=== PATIENT | female | born 1930 | race African-American/Black ===

== ENCOUNTER 2018-03-16 11:53 | Observation (INO) | payer OTHER ==
[2018-03-16 12:21] VITALS: BMI 30.2
--- NOTE | 2018-03-16 12:27 | PDOC ---
History of Present Illness - General Chief Complaint: Injury Stated Complaint: FALL Time Seen by Provider: 03/16/18 12:08 History Source: Patient Exam Limitations: Dementia - History of Present Illness Initial Comments: 03/16/18 15:51 Patient is an 87-year-old female with past medical history of hypertension, A. fib, on Xarelto and digoxin, COPD, dementia, who [facility] records, patient has had 2 falls in the last 48 hours. The second fall was witnessed and she did not hit her head. They are concerned that she keeps falling and send her in for evaluation. Patient has dementia and is unable to give a review of systems. According to the [facility] patient was at baseline prior to arrival. Past History - Travel Traveled outside of the country in the last 30 days: No Close contact w/someone who was outside of country & ill: No - Past Medical History Allergies/Adverse Reactions: Allergies Allergy/AdvReac Type Severity Reaction Status Date / Time morphine Allergy Verified 03/16/18 12:45 Penicillins Allergy Verified 03/16/18 12:45 shellfish derived Allergy Verified 03/16/18 12:45 Home Medications: Ambulatory Orders Albuterol 0.083% Nebulizer Ani [Ventolin 0.083% Nebulizer Soln -] 1 amp NEB PRN 03/16/18 Budesonide/Formeterol Fumarate [SYMBICORT 80/4.5mcg -] 2 puff IH BID 03/16/18 Lisinopril 10 mg PO DAILY 03/16/18 Propylene Glycol [Systane Balance] 2 drop OD HS 03/16/18 Rivaroxaban [Xarelto -] 15 mg PO DAILY 03/16/18 Sertraline HCl [Zoloft -] 50 mg PO DAILY 03/16/18 Simvastatin [Zocor -] 20 mg PO HS 03/16/18 Zinc Gluconate [Zinc] 50 mg PO DAILY 03/16/18 Carvedilol [Coreg -] 12.5 mg PO BID 03/18/18 Digoxin 125 mcg PO DAILY 03/18/18 Sertraline HCl [Zoloft] 25 mg PO DAILY 03/18/18 - Suicide/Smoking/Psychosocial Hx Smoking History: Unknown if ever smoked Hx Alcohol Use: No Drug/Substance Use Hx: No Review of Systems - Review of Systems Able to Perform ROS?: No (Demented) Is the patient limited Latvian proficient: No *Physical Exam - Vital Signs Last Vital Signs Temp Pulse Resp BP Pulse Ox 97.4 F L 58 L 17 122/70 98 03/16/18 12:12 03/16/18 12:12 03/16/18 12:12 03/16/18 12:12 03/16/18 12:12 - Physical Exam Comments: 03/16/18 12:21 GENERAL: Well developed, well nourished. Awake and alert x2 (person and place). No acute distress. HEENT: Normocephalic, atraumatic. PERRLA, EOMI. No conjunctival pallor. Sclera are non- icteric. Dry mucous membranes. Oropharynx is clear. NECK: Supple. Full ROM. No JVD. Carotid pulses 2+ and symmetric, without bruits. No thyromegaly. No lymphadenopathy. CARDIOVASCULAR: Irregularly irregular rate and rhythm. No murmurs, rubs, or gallops. Distal pulses are 2+ and symmetric. PULMONARY: No evidence of respiratory distress. Lungs clear to auscultation bilaterally. No wheezing, rales or rhonchi. ABDOMINAL: Soft. Non-tender. Non-distended. No rebound or guarding. No organomegaly. Normoactive bowel sounds. MUSCULOSKELETAL Normal range of motion at all joints. No bony deformities or tenderness. No CVA tenderness. EXTREMITIES: No cyanosis. No clubbing. No edema. No calf tenderness. SKIN: Warm and dry. Normal capillary refill. No rashes. No jaundice. NEUROLOGICAL: Alert, awake, appropriate. Cranial nerves 2-12 intact. No deficits to light touch and temperature in face, upper extremities and lower extremities. No motor deficits in the in face, upper extremities and lower extremities. Normoreflexic in the upper and lower extremities. Normal speech. Toes are down- going bilaterally. Gait is normal without ataxia. PSYCHIATRIC: Cooperative. Good eye contact. Appropriate mood and affect. ED Treatment Course - LABORATORY CBC & Chemistry Diagram: 03/17/18 06:13 03/17/18 06:13 Medical Decision Making - Medical Decision Making 03/16/18 13:51 Patient is an 87-year-old female with past medical history of hypertension, A. fib, on Xarelto and digoxin, COPD, dementia, who presents to the emergency department [facility]. Pt is agitated and states that nothing is wrong with her and she wants to [facility] the [facility]. Per the [facility], pt has had two falls in the past 48 hours. One was witnessed and she did not hit her head at that time. Broad differential includes , infection, stroke, acs, uti. 1. labs,urine 2. head CT, chest x-ray 3. re-evaluate 03/16/18 14:24 Pt is very combative and refuses to have labs drawn/give urine. Haldol/ativan/ benadryl given at this time 03/16/18 15:[address] is negative for acute pathology at this time. No leukocytosis. H&H stable. Still pending comp/UA. 03/16/18 15:56 Pt to be admitted d/t elevated troponin and frequent falls. Cr also elevated, however, unsure of baseline at this time. Pt will need admission for further cardiac work up. 1st page to Dr. Yovanny Khan/ Dr. Corea 03/16/18 16:01 Dr. Vidhya Corea returns phone call. Case discussed and will place pt in tele obs. 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 03/16/18 18:08 2nd troponin elevated to .12 from 0.09. 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 Recommends aspirin, tele, and conservative measures at this time. UA positive for infection. EKG: Afib with slow ventricular response, rate 58 BPM. Normal axis. Nonspecific T wave abnormalities. *DC/Admit/Observation/Transfer Diagnosis at time of Disposition: Elevated troponin, Frequent falls Dementia Qualifiers: Dementia type: unspecified type Dementia behavioral disturbance: with behavioral disturbance Qualified Code(s): F03.91 - Unspecified dementia with behavioral disturbance - Discharge Dispostion Disposition: ALF FACILITY Condition at time of disposition: Stable Decision to Admit order: Yes - Referrals - Patient Instructions - Post Discharge Activity
[2018-03-16 13:19] LABS: BASO % 0.5 % (0-2.0); EOS % 4.2 % (0-4.5); HEMATOCRIT 36.3 % (32.4-45.2); HEMOGLOBIN 11.7 GM/dL (10.7-15.3); LYMPH % 32.5 % (8-40); MCH 28.1 pg (25.7-33.7); MCHC 32.2 g/dl (32.0-36.0); MEAN CELL VOLUME 87.2 fl (80-96); MEAN PLT VOLUME 9.1 fl (7.5-11.1); NEUT % 53.8 % (42.8-82.8); PLATELET COUNT 163 K/MM3 (134-434); RBC 4.17 M/mm3 (3.60-5.2); RDW 16.9 % (11.6-15.6); WHITE BLOOD COUNT 7.4 K/mm3 (4.0-10.0)
[2018-03-16 13:23] LABS: INR 2.27 (0.83-1.09); PROTHROMBIN TIME (PATIENT) 25.6 SEC (9.7-13.0)
[2018-03-16] MEDS ORDERED: HALOPERIDOL LACTATE 5 MG/ML IM ONE (13:34)
[2018-03-16] MEDS ORDERED: HALOPERIDOL LACTATE 5 MG/ML ONE (13:49)
[2018-03-16] MEDS ORDERED: LORazepam 2 MG/ML SDV VIAL ONE (13:49)
[2018-03-16 14:24] LABS: CALCIUM 9.3 mg/dL (8.5-10.1); CHLORIDE 111 mmol/L (98-107); SODIUM 145 mmol/L (136-145)
[2018-03-16 14:25] LABS: ALBUMIN 3.6 g/dl (3.4-5.0); ANION GAP 11 (8-16); CO2 23 mmol/L (21-32); GLUCOSE,RANDOM 91 mg/dL (74-106)
[2018-03-16 14:28] LABS: BLOOD UREA NITROGEN 42 mg/dL (7-18)
[2018-03-16 14:29] LABS: ALK PHOS 91 U/L (45-117); BILIRUBIN,TOTAL 0.6 mg/dL (0.2-1.0); CREATININE 1.4 mg/dL (0.55-1.02); SGOT/AST 29 U/L (15-37); SGPT/ALT 23 U/L (12-78); TOT PROT 8.1 g/dl (6.4-8.2)
--- NOTE | 2018-03-16 15:28 | EKG ---
Test Reason : Blood Pressure : / mmHG Vent. Rate : 058 BPM Atrial Rate : 227 BPM P-R Int : 000 ms QRS Dur : 082 ms QT Int : 424 ms P-R-T Axes : 000 006 186 degrees QTc Int : 416 ms ATRIAL FIBRILLATION WITH SLOW VENTRICULAR RESPONSE NONSPECIFIC ST AND T WAVE ABNORMALITY ABNORMAL ECG NO PREVIOUS ECGS AVAILABLE Confirmed by YECENIA ZAVALA MD ([id number]) on 03/16/2018 3:28:25 PM Referred By: Confirmed By:YECENIA ZAVALA MD
[2018-03-16 16:26] LABS: URINE APPEARANCE SLCLOUDY; URINE BILIRUBIN NEGATIVE (<2.0 mg/dL); URINE COLOR YELLOW; URINE GLUCOSE (UA) NEGATIVE (NEGATIVE); URINE KETONE NEGATIVE (NEGATIVE); URINE LEUK ESTERASE TRACE (NEGATIVE); URINE NITRITE NEGATIVE (NEGATIVE)
[2018-03-16 17:06] LABS: URINE PROTEIN 1+ (NEGATIVE)
[2018-03-16 17:13] LABS: EPI CELLS RARE /HPF (FEW); URINE BACTERIA MANY /hpf (NONE SEEN); URINE HYALINE CAST 4 /lpf; URINE MUCUS MODERATE
[2018-03-16] MEDS ORDERED: ASPIRIN 300 MG SUPP.RECT PR ONE (18:07)
[2018-03-16] MEDS: ATORVASTATIN CA 10 MG TABLET (FP) PO SCH (21:37)
[2018-03-16] MEDS: BUDESONIDE/FORMETEROL FUMARATE 80/4.5 mcg INHALER IH SCH (22:49)
[2018-03-17 06:45] LABS: BASO % 0.7 % (0-2.0); EOS % 6.7 % (0-4.5); HEMATOCRIT 34.9 % (32.4-45.2); HEMOGLOBIN 11.4 GM/dL (10.7-15.3); LYMPH % 36.3 % (8-40); MCH 28.7 pg (25.7-33.7); MCHC 32.7 g/dl (32.0-36.0); MEAN CELL VOLUME 87.8 fl (80-96); MEAN PLT VOLUME 9.2 fl (7.5-11.1); MONO % 10.1 % (3.8-10.2); NEUT % 46.2 % (42.8-82.8); PLATELET COUNT 146 K/MM3 (134-434); RBC 3.97 M/mm3 (3.60-5.2); RDW 17.3 % (11.6-15.6); WHITE BLOOD COUNT 5.9 K/mm3 (4.0-10.0)
[2018-03-17 07:24] LABS: ALBUMIN 3.2 g/dl (3.4-5.0); ANION GAP 10 (8-16); BLOOD UREA NITROGEN 38 mg/dL (7-18); CALCIUM 9.1 mg/dL (8.5-10.1); CHLORIDE 111 mmol/L (98-107); CO2 24 mmol/L (21-32); GLUCOSE,RANDOM 72 mg/dL (74-106); POTASSIUM 4.3 mmol/L (3.5-5.1); SODIUM 145 mmol/L (136-145)
[2018-03-17 07:36] LABS: ALK PHOS 83 U/L (45-117); BILIRUBIN,TOTAL 0.8 mg/dL (0.2-1.0); CHOLESTEROL 127 mg/dL (50-200); CREATININE 1.3 mg/dL (0.55-1.02); HDL CHOLESTEROL 49 mg/dL (40-60); SGOT/AST 32 U/L (15-37); SGPT/ALT 22 U/L (12-78); TOT PROT 7.4 g/dl (6.4-8.2); TRIGLYCERIDES 80 mg/dL (35-160)
--- NOTE | 2018-03-17 10:29 | ECHO ---
Name: EUFEMIA BERRIOS Exam:Adult Echocardiogram Study Date: 03/17/2018 08:09 AM Age: 87 yrs Reason For Study: LV Function Height: 61 in Weight: 160 lb BSA: 1.7 m2 BP: 143/91 mmHg MMode/2D Measurements & Calculations IVSd: 1.5 cm Ao root diam: 3.8 cm LVIDd: 3.8 cm LA dimension: 3.4 cm LVIDs: 2.4 cm LVPWd: 1.5 cm EDV(Teich): 60.3 ml ESV(Teich): 19.3 ml Doppler Measurements & Calculations MV E max brenda: 73.7 cm/sec AI P1/2t: 940.5 msec MV A max brenda: 35.4 cm/sec MV E/A: 2.1 MV dec time: 0.19 sec AI max brenda: 382.6 cm/sec MR max brenda: 401.0 cm/sec AI max P.5 mmHg MR max P.3 mmHg AI dec slope: 119.1 cm/sec2 TR max brenda: 287.3 cm/sec Med Peak E' Brenda: 7.0 cm/sec TR max P.0 mmHg Med E/e': 10.6 Lat Peak E' Brenda: 6.5 cm/sec Lat E/e': 11.3 Tech Comments . . Left Ventricle There is mild concentric left ventricular hypertrophy. Left ventricular systolic function is grossly normal. Right Ventricle The right ventricle is grossly normal size. The right ventricular systolic function is grossly normal . Atria Normal left and right atrial size and function. Mitral Valve There is moderate to severe mitral annular calcification. There is no mitral valve stenosis. There is mild mitral regurgitation. Tricuspid Valve The tricuspid valve is normal in structure and function. There is mild tricuspid regurgitation. Aortic Valve There is mild aortic sclerosis.;. The aortic valve is trileaflet. No hemodynamically significant valv ular aortic stenosis. Mild aortic regurgitation. Pulmonic Valve The pulmonic valve is not well seen, but is grossly normal. There is no pulmonic valvular stenosis. Great Vessels Mild aortic root dilatation. Pericardium/Pleura There is no pericardial effusion. Interpretation Summary There is mild concentric left ventricular hypertrophy. Left ventricular systolic function is grossly normal. There is moderate to severe mitral annular calcification. There is mild mitral regurgitation. There is mild tricuspid regurgitation. There is mild aortic sclerosis.; Mild aortic regurgitation. Mild aortic root dilatation. There is no pericardial effusion. MD Derick Watt 03/17/2018 10:28 AM
--- NOTE | 2018-03-17 10:54 | CON.CARD ---
Consult Consult Specialty:: Cardiology Referred by:: Dr Jacobs Reason for Consultation:: elevated troponin - History of Present Illness Chief Complaint: fall History of Present Illness: She is an 87-year-old female with past medical history of hypertension, chronic atrial fibrillation on Xarelto, COPD, dementia, who presents to the emergency department today for [facility]. She cannot give a history. ECG: no acute changes. Echo 03/17/18: mild LVH normal EF, FCDAOV, mild AI/TR mod to severe MR, mild ao root dilatation. - History Source History Provided By: Medical Record Limitations to Obtaining History: Dementia - Past Medical History ELECTRIC CELL TENDER: Yes: Alzheimer's Cardio/Vascular: Yes: AFIB, Mitral Insufficiency Pulmonary: Yes: COPD - Alcohol/Substance Use Hx Alcohol Use: No - Smoking History Smoking history: Unknown if ever smoked Home Medications - Allergies Allergies/Adverse Reactions: Allergies Allergy/AdvReac Type Severity Reaction Status Date / Time morphine Allergy Verified 03/16/18 12:45 Penicillins Allergy Verified 03/16/18 12:45 shellfish derived Allergy Verified 03/16/18 12:45 - Home Medications Home Medications: Ambulatory Orders Albuterol 0.083% Nebulizer Ani [Ventolin 0.083% Nebulizer Soln -] 1 amp NEB PRN 03/16/18 Budesonide/Formeterol Fumarate [SYMBICORT 80/4.5mcg -] 2 puff IH BID 03/16/18 Lisinopril 10 mg PO DAILY 03/16/18 Propylene Glycol [Systane Balance] 2 drop OD HS 03/16/18 Rivaroxaban [Xarelto -] 15 mg PO DAILY 03/16/18 Sertraline HCl [Zoloft -] 50 mg PO DAILY 03/16/18 Sertraline HCl [Zoloft] 25 mg PO DAILY 03/16/18 Simvastatin [Zocor -] 20 mg PO HS 03/16/18 Spironolactone 25 mg PO ASDIR 03/16/18 Zinc Gluconate [Zinc] 50 mg PO DAILY 03/16/18 Family Disease History - Family Disease History Family History: Unable to Obtain Review of Systems Unable to obtain ROS, reason: OMS Vital Signs: Vital Signs Temperature 97.9 F 03/17/18 08:49 Pulse Rate 61 03/17/18 07:18 Respiratory Rate 18 03/17/18 07:18 Blood Pressure 141/91 03/17/18 07:18 O2 Sat by Pulse Oximetry (%) 100 03/17/18 07:18 Constitutional: Yes: Well Nourished, No Distress, Calm Eyes: Yes: Conjunctiva Clear, EOM Intact HENT: Yes: Atraumatic, Normocephalic Neck: Yes: Trachea Midline Respiratory: Yes: CTA Bilaterally Gastrointestinal: Yes: Normal Bowel Sounds, Soft Renal/: Yes: WNL Cardiovascular: Yes: Bradycardia, Pulse Irregular JVD: No Carotid Bruit: No PMI: Non-Displaced Heart Sounds: Yes: S1, S2 Musculoskeletal: Yes: WNL Extremities: Yes: WNL Edema: No Peripheral Pulses WNL: Yes - Other Data Labs, Other Data: CBC, BMP 03/17/18 06:13 03/17/18 06:13 INR, PTT INR 2.27 (0.83-1.09) H 03/16/18 13:00 Troponin, BNP 03/16/18 03/16/18 03/16/18 13:00 16:20 21:47 Troponin I 0.09 H 0.12 H 0.12 H 03/17/18 06:13 Troponin I 0.11 H Troponin, BNP 03/16/18 03/16/18 03/16/18 13:00 16:20 21:47 Troponin I 0.09 H 0.12 H 0.12 H 03/17/18 06:13 Troponin I 0.11 H Imaging - Results Chest X-ray: Report Reviewed (marivel) EKG: Report Reviewed (af nssttw changes) Problem List - Problems (1) Elevated troponin Assessment/Plan: Continue conservative therapy. She is not a candidate for ischemia workup and has normal EF. Code(s): R74.8 - ABNORMAL LEVELS OF OTHER SERUM ENZYMES (2) Chronic atrial fibrillation Assessment/Plan: Continue Xarelto for stroke prevention. Continue digoxin. Add low dose beta elayne if RVR, but controlled on present regimen. Observe on telemetry x 24 hours. Code(s): I48.2 - CHRONIC ATRIAL FIBRILLATION
[2018-03-17] MEDS: SERTRALINE HCL 50 MG TABLET (FP) PO SCH (10:58)
[2018-03-17] MEDS: RIVAROXABAN 15 MG TABLET PO SCH (10:58)
[2018-03-17] MEDS: BUDESONIDE/FORMETEROL FUMARATE 80/4.5 mcg INHALER IH SCH ×2 (10:58→21:33)
[2018-03-17] MEDS: LISINOPRIL 10 MG TABLET (FP) PO SCH (10:58)
--- NOTE | 2018-03-17 11:31 | HP ---
Admitting History and Physical - Primary Care Physician PCP: Yovanny Khan - Admission History of Present Illness: patient seen and examined in the emergency room. Chart reviewed as for emergency room records/notes Patient is an 87-year-old female with past medical history of hypertension, A. fib, on Xarelto and digoxin, COPD, dementia, who presents to the emergency department today for falling at the [facility]. Per [facility] records, patient has had 2 falls in the last 48 hours. The second fall was witnessed and she did not hit her head. They are concerned that she keeps falling and send her in for evaluation. Patient has dementia and is unable to give a review of systems. According to the [facility] patient was at baseline prior to arrival. patient at present is awake and comfortable Tries to get out of the bed Restraints applied due to safety concerns. 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: Yes: Alzheimer's Cardiovascular: Yes: AFIB, Mitral Insufficiency Pulmonary: Yes: COPD - Smoking History Smoking history: Unknown if ever smoked - Alcohol/Substance Use Hx Alcohol Use: No Home Medications - Allergies Allergies/Adverse Reactions: Allergies Allergy/AdvReac Type Severity Reaction Status Date / Time morphine Allergy Verified 03/16/18 12:45 Penicillins Allergy Verified 03/16/18 12:45 shellfish derived Allergy Verified 03/16/18 12:45 - Home Medications Home Medications: Ambulatory Orders Albuterol 0.083% Nebulizer Ani [Ventolin 0.083% Nebulizer Soln -] 1 amp NEB PRN 03/16/18 Budesonide/Formeterol Fumarate [SYMBICORT 80/4.5mcg -] 2 puff IH BID 03/16/18 Lisinopril 10 mg PO DAILY 03/16/18 Propylene Glycol [Systane Balance] 2 drop OD HS 03/16/18 Rivaroxaban [Xarelto -] 15 mg PO DAILY 03/16/18 Sertraline HCl [Zoloft -] 50 mg PO DAILY 03/16/18 Sertraline HCl [Zoloft] 25 mg PO DAILY 03/16/18 Simvastatin [Zocor -] 20 mg PO HS 03/16/18 Spironolactone 25 mg PO ASDIR 03/16/18 Zinc Gluconate [Zinc] 50 mg PO DAILY 03/16/18 Review of Systems Unable to obtain ROS, reason: dementia/clinical conditi Physical Examination Vital Signs: Vital Signs Temperature 97.9 F 03/17/18 08:49 Pulse Rate 64 03/17/18 10:41 Respiratory Rate 18 03/17/18 10:41 Blood Pressure 138/98 03/17/18 10:41 O2 Sat by Pulse Oximetry (%) 100 03/17/18 10:41 Constitutional: Yes: No Distress Eyes: Yes: Conjunctiva Clear HENT: Yes: WNL Neck: Yes: Supple Cardiovascular: Yes: Pulse Irregular Respiratory: Yes: Diminished Gastrointestinal: Yes: Normal Bowel Sounds, Soft Edema: No Neurological: Yes: Alert (Nonfocal) Labs: CBC, BMP 03/17/18 06:13 03/17/18 06:13 Imaging - Results Chest X-ray: Report Reviewed Cat Scan: Report Reviewed EKG: Report Reviewed Problem List - Problems (1) Chronic atrial fibrillation Code(s): I48.2 - CHRONIC ATRIAL FIBRILLATION (2) Dementia Code(s): F03.90 - UNSPECIFIED DEMENTIA WITHOUT BEHAVIORAL DISTURBANCE Qualifiers: Dementia type: unspecified type Dementia behavioral disturbance: with behavioral disturbance Qualified Code(s): F03.91 - Unspecified dementia with behavioral disturbance (3) Elevated troponin Code(s): R74.8 - ABNORMAL LEVELS OF OTHER SERUM ENZYMES (4) Frequent falls Code(s): R29.6 - REPEATED FALLS Assessment/Plan fall precautions Medications reviewed Continue same treatment for now and repeat CAT scan had today Restraints for safety for now discussed with nursing staff Cardiology consult also noted and appreciated-- Will follow
[2018-03-17] MEDS ORDERED: LORazepam 2 MG/ML SDV VIAL IVPUSH ONE (11:40)
[2018-03-17] MEDS ORDERED: LORazepam 2 MG/ML SDV VIAL ONE (11:55)
[2018-03-17] MEDS: ATORVASTATIN CA 10 MG TABLET (FP) PO SCH (21:33)
[2018-03-18] MEDS: LISINOPRIL 10 MG TABLET (FP) PO SCH (09:19)
[2018-03-18] MEDS: RIVAROXABAN 15 MG TABLET PO SCH (09:19)
[2018-03-18] MEDS: SERTRALINE HCL 50 MG TABLET (FP) PO SCH (09:19)
[2018-03-18] MEDS: BUDESONIDE/FORMETEROL FUMARATE 80/4.5 mcg INHALER IH SCH (09:29)
--- NOTE | 2018-03-18 10:46 | DS ---
Physical Examination Vital Signs: Vital Signs Temperature 98 F 03/18/18 10:00 Pulse Rate 118 H 03/18/18 10:00 Respiratory Rate 18 03/18/18 10:00 Blood Pressure 112/78 03/18/18 10:00 O2 Sat by Pulse Oximetry (%) 96 03/17/18 21:00 Labs: CBC, BMP 03/17/18 06:13 03/17/18 06:13 Discharge Summary Reason For Visit: DEMENTIA; ELEVATED TROPONIN Current Active Problems Chronic atrial fibrillation (Acute) Dementia (Acute) Elevated troponin (Acute) Frequent falls (Acute) Condition: Stable - Instructions Referrals: Yovanny Khan MD [Primary Care Provider] - - Home Medications Comprehensive Discharge Medication List: Ambulatory Orders Albuterol 0.083% Nebulizer Ani [Ventolin 0.083% Nebulizer Soln -] 1 amp NEB PRN 03/16/18 Budesonide/Formeterol Fumarate [SYMBICORT 80/4.5mcg -] 2 puff IH BID 03/16/18 Lisinopril 10 mg PO DAILY 03/16/18 Propylene Glycol [Systane Balance] 2 drop OD HS 03/16/18 Rivaroxaban [Xarelto -] 15 mg PO DAILY 03/16/18 Sertraline HCl [Zoloft -] 50 mg PO DAILY 03/16/18 Sertraline HCl [Zoloft] 25 mg PO DAILY 03/16/18 Simvastatin [Zocor -] 20 mg PO HS 03/16/18 Spironolactone 25 mg PO ASDIR 03/16/18 Zinc Gluconate [Zinc] 50 mg PO DAILY 03/16/18
--- NOTE | 2018-03-18 12:27 | PN ---
Progress Note, Physician Chief Complaint: Status post fall History of Present Illness: 87-year-old female with severe dementia, skilled nursing resident, hypertension, chronic atrial fibrillation, admitted after a fall. - Current Medication List Current Medications: Active Medications Atorvastatin Calcium (Lipitor -) 10 mg PO HS [facility] Last Admin: 03/17/18 21:33 Dose: Not Given Budesonide/Formoterol Fumarate (Symbicort 80/4.5mcg -) 2 puff IH BID [facility] Last Admin: 03/18/18 09:29 Dose: Not Given Lisinopril (Prinivil) 10 mg PO DAILY [facility] Last Admin: 03/18/18 09:19 Dose: 10 mg Rivaroxaban (Xarelto -) 15 mg PO DAILY [facility] Last Admin: 03/18/18 09:19 Dose: 15 mg Sertraline HCl (Zoloft -) 50 mg PO DAILY [facility] Last Admin: 03/18/18 09:19 Dose: 50 mg - Objective Vital Signs: Vital Signs Temperature 98 F 03/18/18 10:00 Pulse Rate 118 H 03/18/18 10:00 Respiratory Rate 18 03/18/18 10:00 Blood Pressure 112/78 03/18/18 10:00 O2 Sat by Pulse Oximetry (%) 96 03/17/18 21:00 Constitutional: Yes: Well Nourished, No Distress, Calm Eyes: Yes: WNL HENT: Yes: WNL, Atraumatic, Normocephalic Neck: Yes: WNL, Supple, Trachea Midline Cardiovascular: Yes: Pulse Irregular, S1, S2 Respiratory: Yes: WNL, Regular, CTA Bilaterally Gastrointestinal: Yes: WNL, Normal Bowel Sounds, Soft ...Rectal Exam: Yes: Deferred Genitourinary: Yes: WNL Musculoskeletal: Yes: WNL Extremities: Yes: WNL Edema: No Peripheral Pulses: Left Radial: 1+, Right Radial: 1+, Left Doralis Pedis: 1+, Right Dorsalis Pedis: 1+, Left Femoral: 1+, Right Femoral: 1+ Integumentary: Yes: WNL Neurological: Yes: Alert Labs: CBC, BMP 03/17/18 06:13 03/17/18 06:13 INR, PTT INR 2.27 (0.83-1.09) H 03/16/18 13:00 Assessment/Plan The patient has been stable from the cardiac standpoint. Ventricular rates are predominantly well controlled, with mild tachycardia at times. May consider adding digoxin 0.125 mg daily. Continue the other medications as currently. There is no need for further cardiac monitoring area Please do not hesitate to call us PRN
[2018-03-18] MEDS ORDERED: DIGOXIN 0.125 MG TABLET (FP) PO SCH (13:00)
[2018-03-18 15:04] VITALS: BP 127/74; PULSE 74; TEMP 98.4
== END 2018-03-18 18:09 ==
LOC: JER 11:53 → JERBED 15:55 → J4W 03-17 15:20
PROVIDERS: ADMIT Internal Medicine; ATTEND Internal Medicine
PROC: 3E033GC Introduction of Other Therapeutic Substance into Peripheral Vein, Percutaneous Approach (ICD-10-PCS; principal; 2018-03-16)
PROC: 3E023GC Introduction of Other Therapeutic Substance into Muscle, Percutaneous Approach (ICD-10-PCS; 2018-03-16)
DX: R77.8 Other specified abnormalities of plasma proteins (principal); R29.6 Repeated falls; I10 Essential (primary) hypertension; I48.2 Chronic atrial fibrillation; J44.9 Chronic obstructive pulmonary disease, unspecified; F03.91 Unspecified dementia, unspecified severity, with behavioral disturbance; Z79.01 Long term (current) use of anticoagulants; Z88.0 Allergy status to penicillin; Z88.5 Allergy status to narcotic agent; Z91.013 Allergy to seafood
CPT/HCPCS: 36415; 70450-TC; 71045-TC-FY; 80053; 80061; 80162; 81003; 81015; 82550; 82553; 82607; 83721; 84443; 84484; 85025; 85610; 87086; 87186; 93005; 93010; 93306-TC; 96372; 96374; 99285-25; G0378

== ENCOUNTER 2018-10-07 01:37 | Inpatient (IN) | payer OTHER ==
[2018-10-07 02:29] VITALS: BMI 32.1
--- NOTE | 2018-10-07 02:46 | PDOC ---
Attending Attestation - Resident Resident Name: Guanaco Chang - ED Attending Attestation I have performed the following: I have examined & evaluated the patient, The case was reviewed & discussed with the resident, I agree w/resident's findings & plan, Exceptions are as noted - HPI HPI: 10/07/18 04:47 Ms Lee is an 87 yo F h/o HTN, A-fib on Xarelto, COPD, dementia BIBA from group home due to anemia. Patient on Xarelto. Patient unreliable historian - Physicial Exam PE: 10/07/18 04:49 GENERAL: Speech incomprehensible, able to partially follow commands. Awake, alert, and fully oriented, in no acute distress LUNGS: No distress, speaks full sentences, clear to auscultation bilaterally HEART: Regular rate and rhythm, normal S1 and S2, no murmurs, rubs or gallops ABDOMEN: Soft, nontender, normoactive bowel sounds. RECTAL: Per Dr. Chang EXTREMITIES : Normal inspection, Normal range of motion, no edema. No clubbing or cyanosis. NEUROLOGICAL: Cranial nerves II through XII grossly intact. No focal sensorimotor deficits SKIN: Warm, Dry, normal turgor, no rashes or lesions noted - Medical Decision Making 10/07/18 04:50 Pt with Anemia DD: GIB, bone marrow suppression Will do: labs, type and screen, EKG CXR Transfuse 10/07/18 04:52 Laboratory Tests 10/07/18 10/07/18 10/07/18 03:28 03:28 03:28 WBC 5.3 Hgb 5.5 L* Hct 18.4 L D Plt Count 225 D INR 1.97 H BUN 42 H Creatinine 1.5 H Stool Occult Blood 10/07/18 03:30 WBC Hgb Hct Plt Count INR BUN Creatinine Stool Occult Blood Positive CXR - low voltage, rate of 56 bpm, axis nml, intervals nml, no st elevation or depression Will admit for transfusion Protonix given *DC/Admit/Observation/Transfer Diagnosis at time of Disposition: Anemia requiring transfusions - Discharge Dispostion Condition at time of disposition: Stable Decision to Admit order: Yes - Referrals Referrals: Yovanny Khan MD [Primary Care Provider] - - Patient Instructions Additional Instructions: Please return to the emergency department with any new or worsening symptoms or concerns. Please follow up with your primary care physician within 72 hours. - Post Discharge Activity
--- NOTE | 2018-10-07 02:48 | PDOC ---
History of Present Illness - General Chief Complaint: Revisit, Lab Variance Stated Complaint: ABNORMAL LABS Time Seen by Provider: 10/07/18 02:31 - History of Present Illness Initial Comments: 10/07/18 02:47 87 yo F with h/o HTN, A-fib on Xarelto, COPD, dementia BIBA from [facility] ( [facility]) with lab abnormality. Patient with possible anemia requiring transfusions. Lab records noted that pt. with H/H 6.3/19.8 (10/06/18) . Patient on Xarelto. Patient unreliable historian d/t baseline dementia, mental status. Patient denies NEGRETE, vision change, palpitations, cough, wheezing, orthopena, PND , leg swelling/pain, N/V, F,C, CP, SOB, urinary complaints, hematuria, BPR, abdominal pain, diarrhea, constipation, lightheadedness, weakness, sensory changes. PMHx: as noted above ROS: as noted Allergies: Morphine, Pen G, Shellfish PMD: Dr. Khan Past History - Past Medical History Allergies/Adverse Reactions: Allergies Allergy/AdvReac Type Severity Reaction Status Date / Time morphine Allergy Verified 10/07/18 02:23 Penicillins Allergy Verified 10/07/18 02:23 shellfish derived Allergy Verified 10/07/18 02:23 Home Medications: Ambulatory Orders Albuterol 0.083% Nebulizer Ani [Ventolin 0.083% Nebulizer Soln -] 1 amp NEB PRN 03/16/18 Budesonide/Formeterol Fumarate [SYMBICORT 80/4.5mcg -] 2 puff IH BID 03/16/18 Lisinopril 10 mg PO DAILY 03/16/18 Propylene Glycol [Systane Balance] 2 drop OD HS 03/16/18 Rivaroxaban [Xarelto] 15 mg PO DAILY 03/16/18 Sertraline HCl [Zoloft -] 50 mg PO DAILY 03/16/18 Simvastatin [Zocor -] 20 mg PO HS 03/16/18 Zinc Gluconate [Zinc] 50 mg PO DAILY 03/16/18 Carvedilol [Coreg -] 12.5 mg PO BID 03/18/18 Digoxin 125 mcg PO DAILY 03/18/18 Sertraline HCl [Zoloft] 25 mg PO DAILY 03/18/18 Cardiac Disorders: Yes (ASHD, AFIB) COPD: No Dementia: Yes HTN: Yes Hypercholesterolemia: Yes Psychiatric Problems: Yes (Major Depressive Disorder, Bipolar) - Suicide/Smoking/Psychosocial Hx Smoking History: Never smoked Have you smoked in the past 12 months: No Information on smoking cessation initiated: No Hx Alcohol Use: No Drug/Substance Use Hx: No Review of Systems - Review of Systems Comments:: 10/07/18 02:48 Unable to obtain 13 point ROS inspection d/t dementia, incomprehensible speech. *Physical Exam - Vital Signs Last Vital Signs Temp Pulse Resp BP Pulse Ox 97.7 F 51 L 18 130/78 97 10/07/18 01:37 10/07/18 01:37 10/07/18 01:37 10/07/18 01:37 10/07/18 01:37 - Physical Exam Comments: 10/07/18 02:48 GENERAL: Speech incomprehensible, able to partially follow commands. Awake, alert, and fully oriented, in no acute distress HEAD: No signs of trauma, normocephalic, atraumatic EYES: PERRLA, EOMI, sclera anicteric, conjunctiva clear ENT: Auricles normal inspection, hearing grossly normal, nares patent, oropharynx clear without exudates. Moist mucosa NECK: Normal ROM, supple, no lymphadenopathy, JVD, or masses LUNGS: No distress, speaks full sentences, clear to auscultation bilaterally HEART: Regular rate and rhythm, normal S1 and S2, no murmurs, rubs or gallops, peripheral pulses normal and equal bilaterally. ABDOMEN: Soft, nontender, normoactive bowel sounds. No guarding, no rebound. No masses RECTAL: Absent BPR, light brown stool. absent lesions, fissures, hemorrhoids. EXTREMITIES : Normal inspection, Normal range of motion, no edema. No clubbing or cyanosis. NEUROLOGICAL: Cranial nerves II through XII grossly intact. No focal sensorimotor deficits SKIN: Warm, Dry, normal turgor, no rashes or lesions noted Moderate Sedation - Procedure Monitoring Vital Signs: Procedure Monitoring Vital Signs Temperature 97.7 F 10/07/18 01:37 Pulse Rate 51 L 10/07/18 01:37 Respiratory Rate 18 10/07/18 01:37 Blood Pressure 130/78 10/07/18 01:37 O2 Sat by Pulse Oximetry (%) 97 10/07/18 01:37 ED Treatment Course - LABORATORY CBC & Chemistry Diagram: 10/07/18 03:28 10/07/18 03:28 Medical Decision Making - Medical Decision Making 10/07/18 03:02 87 yo F with h/o HTN, A-fib on Xarelto, COPD, dementia BIBAnita from [facility] ( [facility]) with lab abnormality H/H 6.3/19.8 (). Patient unreliable historian d/t baseline dementia, mental status. Patient verbal, but incomprehensible speech. Partially able to follow commands. HR 51, vitals otherwise wnl, AF. A&Ox1. Will assess for cardiac dysarrythmias, hypoglycemia, electrolyte abnml, metabolic and toxic derangements, acid-base disturbances, infection. Ed Course: 10/07/18 03:07 NS 1 L 10/07/18 03:52 H/H: 5.5/18.4 10/07/18 03:54 FOBT: + Pos Protonix 60 mg 10/07/18 03:56 2 U PRBC 10/07/18 04:21 EKG: HR 56, low voltage, TWI V3-V4. Nml R wave progression. Absent Q waves 10/07/18 04:54 BUN/Cr: 42/1.5 Trop: Neg GI consult to Dr. Jennifer cruz. 10/07/18 05:15 Patient endorsed to medicine [employer] Carolina Jo. Admit to [facility] Tele 10/07/18 05:19 Called patient son (Bala Del Valle ) [phone] and unable to leave message or contact Called Patient daughter Ursula Del Valle [phone] and left message requesting call back Called next person of contact Vera Mccauley [phone]. Left message. Awaiting call back. Provided physician consent for blood transfusions. *DC/Admit/Observation/Transfer Diagnosis at time of Disposition: Anemia requiring transfusions - Discharge Dispostion Condition at time of disposition: Stable - Referrals - Patient Instructions - Post Discharge Activity - Attestations Physician Attestion: 10/07/18 02:48 I attest to the information provided in this note.
[2018-10-07] MEDS ORDERED: SODIUM CHLORIDE 1,000 ML IV STA (03:07)
[2018-10-07 03:42] LABS: BASO % 1.1 % (0-2.0); EOS % 5.9 % (0-4.5); HEMATOCRIT 18.4 % (32.4-45.2); LYMPH % 30.4 % (8-40); MCH 20.8 pg (25.7-33.7); MCHC 29.8 g/dl (32.0-36.0); MEAN CELL VOLUME 69.9 fl (80-96); MEAN PLT VOLUME 9.3 fl (7.5-11.1); MONO % 13.8 % (3.8-10.2); NEUT % 48.8 % (42.8-82.8); PLATELET COUNT 225 K/MM3 (134-434); RBC 2.63 M/mm3 (3.60-5.2); WHITE BLOOD COUNT 5.3 K/mm3 (4.0-10.0)
[2018-10-07 03:52] LABS: HEMOGLOBIN 5.5 GM/dL (10.7-15.3)
[2018-10-07] MEDS ORDERED: PANTOPRAZOLE SODIUM 40 MG VIAL IVPUSH ONE (03:53)
[2018-10-07] MEDS ORDERED: PANTOPRAZOLE SODIUM 40 MG VIAL ONE (04:11)
[2018-10-07 04:26] LABS: ALBUMIN 2.7 g/dl (3.4-5.0); ALK PHOS 80 U/L (45-117); ANION GAP 5 MMOL/L (8-16); BILIRUBIN,TOTAL 0.5 mg/dL (0.2-1); BLOOD UREA NITROGEN 42 mg/dL (7-18); CALCIUM 8.5 mg/dL (8.5-10.1); CHLORIDE 108 mmol/L (98-107); CO2 29 mmol/L (21-32); CREATININE 1.5 mg/dL (0.55-1.3); GLUCOSE,RANDOM 97 mg/dL (74-106); POTASSIUM 4.1 mmol/L (3.5-5.1); SGOT/AST 11 U/L (15-37); SGPT/ALT 12 U/L (13-61); SODIUM 142 mmol/L (136-145); TOT PROT 7.1 g/dl (6.4-8.2)
[2018-10-07 04:38] LABS: INR 1.97 (0.83-1.09); PROTHROMBIN TIME (PATIENT) 23.4 SEC (9.7-13.0)
--- NOTE | 2018-10-07 05:24 | HP ---
Admitting History and Physical - Primary Care Physician PCP: Yovanny Khan - Admission Chief Complaint: Abnormal Lab Values History of Present Illness: This is a 87 y/o woman from [facility] with a PMHx of Afib, Dementia, COPD. Who presents to the ED for evaluation of low H/H. Per [place] transfer records Hgb 6.9 on 10/06/18. Patient has Dementia unable to provide HPI. History Source: Transfer Record Limitations to Obtaining History: Clinical Condition, Dementia - Past Medical History HOST/HOSTESS GROUND: Yes: Alzheimer's, Dementia Cardiovascular: Yes: AFIB, Mitral Insufficiency Pulmonary: Yes: COPD - Smoking History Smoking history: Never smoked Have you smoked in the past 12 months: No - Alcohol/Substance Use Hx Alcohol Use: No History of Substance Use: reports: None - Social History Usual Living Arrangement: Yes: Assisted ADL: Support Services History of Recent Travel: No Home Medications - Allergies Allergies/Adverse Reactions: Allergies Allergy/AdvReac Type Severity Reaction Status Date / Time morphine Allergy Verified 10/07/18 02:23 Penicillins Allergy Verified 10/07/18 02:23 shellfish derived Allergy Verified 10/07/18 02:23 - Home Medications Home Medications: Ambulatory Orders Albuterol 0.083% Nebulizer Ani [Ventolin 0.083% Nebulizer Soln -] 1 amp NEB PRN 03/16/18 Budesonide/Formeterol Fumarate [SYMBICORT 80/4.5mcg -] 2 puff IH BID 03/16/18 Lisinopril 10 mg PO DAILY 03/16/18 Propylene Glycol [Systane Balance] 2 drop OD HS 03/16/18 Rivaroxaban [Xarelto] 15 mg PO DAILY 03/16/18 Sertraline HCl [Zoloft -] 50 mg PO DAILY 03/16/18 Simvastatin [Zocor -] 20 mg PO HS 03/16/18 Zinc Gluconate [Zinc] 50 mg PO DAILY 03/16/18 Carvedilol [Coreg -] 12.5 mg PO BID 03/18/18 Digoxin 125 mcg PO DAILY 03/18/18 Sertraline HCl [Zoloft] 25 mg PO DAILY 03/18/18 Family Disease History - Family Disease History Family History: Unable to Obtain Physical Examination Vital Signs: Vital Signs Temperature 97.7 F 10/07/18 01:37 Pulse Rate 51 L 10/07/18 01:37 Respiratory Rate 18 10/07/18 01:37 Blood Pressure 130/78 10/07/18 01:37 O2 Sat by Pulse Oximetry (%) 97 10/07/18 01:37 Constitutional: Yes: No Distress, Calm, Pallor Eyes: Yes: WNL, Conjunctiva Clear, PERRL HENT: Yes: Other (dry mucousa) Neck: Yes: WNL, Supple, Trachea Midline Cardiovascular: Yes: Pulse Irregular, S1, S2 Respiratory: Yes: WNL, Regular, CTA Bilaterally Gastrointestinal: Yes: Normal Bowel Sounds, Soft, Abdomen, Obese ...Rectal Exam: Yes: Guaiac Positive, Sphincter Tone Normal Renal/: Yes: Incontinence Breast(s): Yes: WNL Musculoskeletal: Yes: Joint Stiffness Edema: Yes Edema: LLE: 1+, RLE: 1+ Peripheral Pulses WNL: Yes Neurological: Yes: Alert, Confusion, Cran Nerves II-XII Intact Psychiatric: Yes: Alert Labs: CBC, BMP 10/07/18 03:28 10/07/18 03:28 Laboratory Results - last 24 hr 10/07/18 10/07/18 10/07/18 03:11 03:28 03:28 WBC 5.3 RBC 2.63 L Hgb 5.5 L* Hct 18.4 L D MCV 69.9 L MCH 20.8 L D MCHC 29.8 L RDW 21.0 H Plt Count 225 D MPV 9.3 Absolute Neuts (auto) 2.6 Neutrophils % 48.8 Lymphocytes % 30.4 Monocytes % 13.8 H Eosinophils % 5.9 H Basophils % 1.1 Nucleated RBC % 2 H PT with INR 23.40 H INR 1.97 H Sodium Potassium Chloride Carbon Dioxide Anion Gap BUN Creatinine Creat Clearance w eGFR Random Glucose Lactic Acid Calcium Total Bilirubin AST ALT Alkaline Phosphatase Creatine Kinase 64 Troponin I 0.14 H Total Protein Albumin Stool Occult Blood Blood Type Antibody Screen Crossmatch 10/07/18 10/07/18 10/07/18 03:28 03:28 03:30 WBC RBC Hgb Hct MCV MCH MCHC RDW Plt Count MPV Absolute Neuts (auto) Neutrophils % Lymphocytes % Monocytes % Eosinophils % Basophils % Nucleated RBC % PT with INR INR Sodium 142 Potassium 4.1 Chloride 108 H Carbon Dioxide 29 Anion Gap 5 L BUN 42 H Creatinine 1.5 H Creat Clearance w eGFR 33.00 Random Glucose 97 Lactic Acid Calcium 8.5 Total Bilirubin 0.5 AST 11 L ALT 12 L Alkaline Phosphatase 80 Creatine Kinase Troponin I Total Protein 7.1 Albumin 2.7 L Stool Occult Blood Positive Blood Type O POSITIVE Antibody Screen Negative Crossmatch See Detail 10/07/18 10/07/18 03:30 04:12 WBC RBC Hgb Hct MCV MCH MCHC RDW Plt Count MPV Absolute Neuts (auto) Neutrophils % Lymphocytes % Monocytes % Eosinophils % Basophils % Nucleated RBC % PT with INR INR Sodium Potassium Chloride Carbon Dioxide Anion Gap BUN Creatinine Creat Clearance w eGFR Random Glucose Lactic Acid 1.6 Calcium Total Bilirubin AST ALT Alkaline Phosphatase Creatine Kinase Troponin I Total Protein Albumin Stool Occult Blood Blood Type O POSITIVE Antibody Screen Crossmatch Imaging - Results Chest X-ray: Pending EKG: Image Reviewed Problem List - Problems (1) Anemia requiring transfusions Assessment/Plan: Hgb 5.5, likely secondary to GIB PRBCs x2 ordered in ED Monitor CBC Cardiac monitoring Code(s): D64.9 - ANEMIA, UNSPECIFIED (2) GI (gastrointestinal bleed) Assessment/Plan: Stool Occult + Hgb 5.5 Protonix given in ED, will continue Appreciate GI consult Cardiac monitoring Monitor CBC, BMP Hold Xarelto Code(s): K92.2 - GASTROINTESTINAL HEMORRHAGE, UNSPECIFIED (3) Dementia Assessment/Plan: Continue home meds Fall precautions Code(s): F03.90 - UNSPECIFIED DEMENTIA WITHOUT BEHAVIORAL DISTURBANCE (4) COPD (chronic obstructive pulmonary disease) Assessment/Plan: stable Continue home meds O2 Code(s): J44.9 - CHRONIC OBSTRUCTIVE PULMONARY DISEASE, UNSPECIFIED (5) Chronic atrial fibrillation Assessment/Plan: stable [id number] 4 EKG- reviewed Hold Xarelto secondary to GIB, Anemia Code(s): I48.2 - CHRONIC ATRIAL FIBRILLATION (6) Elevated troponin Assessment/Plan: Likely secondary to demand ischemia Cardiac monitoring Serial Enzymes Appreciate Cardiology consult Chest Xray-pending Code(s): R74.8 - ABNORMAL LEVELS OF OTHER SERUM ENZYMES Assessment/Plan This is a 87 y/o woman admitted to Telemetry for Anemia, GI Bleed, Elevated Troponin for further evaluation of their emergent condition. Plan: See Problem List FEN D51/2NS@42ml/hr Replete Lytes prn NPO DVT ppx TEDs SCDs Hold AC secondary to Anemia/GI Bleed Code Status: Full Code Dispo: Requires Inpatient Care Visit type - Emergency Visit Emergency Visit: Yes ED Registration Date: 10/06/18 Care time: The patient presented to the Emergency Department on the above date and was hospitalized for further evaluation of their emergent condition. - New Patient This patient is new to me today: Yes Date on this admission: 10/07/18 - Critical Care Critical Care patient: No
[2018-10-07] MEDS: DEXTROSE 5%-0.45% SALINE 1,000 ML IV SCH (06:05)
[2018-10-07 10:05] LABS: ANISOCYTOSIS 2+; MACROCYTOSIS 0; OVALOCYTE 1+; PLATELET ESTIMATE NORMAL; TARGET CELLS 1+
--- NOTE | 2018-10-07 11:08 | CONSULT ---
Consult Consult Specialty:: Cardiology Referred by:: Medicine Reason for Consultation:: Atrial fibrillation - History of Present Illness Chief Complaint: Anemia History of Present Illness: 87 yo female NHR HTN Admitted with Hgb 6.3 on DOAC (Xarelto) Prior admission for fall in the past - History Source History Provided By: Patient Limitations to Obtaining History: Dementia - Past Medical History PEN TESTER: Yes: Alzheimer's, Dementia Cardio/Vascular: Yes: AFIB, Mitral Insufficiency Pulmonary: Yes: COPD - Alcohol/Substance Use Hx Alcohol Use: No History of Substance Use: reports: None - Smoking History Smoking history: Never smoked Have you smoked in the past 12 months: No - Social History ADL: Support Services History of Recent Travel: No Home Medications - Allergies Allergies/Adverse Reactions: Allergies Allergy/AdvReac Type Severity Reaction Status Date / Time morphine Allergy Verified 10/07/18 02:23 Penicillins Allergy Verified 10/07/18 02:23 shellfish derived Allergy Verified 10/07/18 02:23 - Home Medications Home Medications: Ambulatory Orders Albuterol 0.083% Nebulizer Ani [Ventolin 0.083% Nebulizer Soln -] 1 amp NEB PRN 03/16/18 Budesonide/Formeterol Fumarate [SYMBICORT 80/4.5mcg -] 2 puff IH BID 03/16/18 Lisinopril 10 mg PO DAILY 03/16/18 Propylene Glycol [Systane Balance] 2 drop OD HS 03/16/18 Rivaroxaban [Xarelto] 15 mg PO DAILY 03/16/18 Sertraline HCl [Zoloft -] 50 mg PO DAILY 03/16/18 Simvastatin [Zocor -] 20 mg PO HS 03/16/18 Zinc Gluconate [Zinc] 50 mg PO DAILY 03/16/18 Carvedilol [Coreg -] 12.5 mg PO BID 03/18/18 Digoxin 125 mcg PO DAILY 03/18/18 Sertraline HCl [Zoloft] 25 mg PO DAILY 03/18/18 Family Disease History - Family Disease History Family History: Unable to Obtain Review of Systems Unable to obtain ROS, reason: Dementia Physical Exam Vital Signs: Vital Signs Temperature 97.8 F 10/07/18 08:55 Pulse Rate 70 10/07/18 08:55 Respiratory Rate 18 10/07/18 08:55 Blood Pressure 129/90 10/07/18 08:55 O2 Sat by Pulse Oximetry (%) 98 10/07/18 08:55 Constitutional: Yes: No Distress Eyes: Yes: WNL HENT: Yes: WNL Neck: Yes: WNL Cardiovascular: Yes: Regular Rate and Rhythm Respiratory: Yes: CTA Bilaterally Gastrointestinal: Yes: Normal Bowel Sounds Musculoskeletal: Yes: WNL Extremities: Yes: WNL Edema: No Labs: CBC, BMP 10/07/18 03:28 10/07/18 03:28 Imaging - Results EKG: Image Reviewed (ECG at 10/07/2018 at 04:14 atrial bigemeny with lateral T- wave inversions.) Assessment/Plan 87 yo female with dementia, HTN and AF on DOAC now with anemia 1) Anemia --Needs GI evaluation -Transfuse as per PMD -Hold Xarelto and Asa 2) Afib -Chronic AF according to prior cards notes from 03/2018 -On Xarelto at [facility] -On Hold for anemia now -Echo with preserved LVEF, severe MR and mild AI She is stable and optimized for GI evaluation.
[2018-10-07 12:17] LABS: BASO % 0.4 % (0-2.0); EOS % 4.5 % (0-4.5); HEMATOCRIT 21.2 % (32.4-45.2); LYMPH % 29.9 % (8-40); MCH 22.3 pg (25.7-33.7); MCHC 30.9 g/dl (32.0-36.0); MEAN CELL VOLUME 72.1 fl (80-96); MEAN PLT VOLUME 8.4 fl (7.5-11.1); MONO % 16.9 % (3.8-10.2); NEUT % 48.3 % (42.8-82.8); PLATELET COUNT 208 K/MM3 (134-434); RBC 2.93 M/mm3 (3.60-5.2); RDW 23.2 % (11.6-15.6); WHITE BLOOD COUNT 5.6 K/mm3 (4.0-10.0)
[2018-10-07 12:32] LABS: HEMOGLOBIN 6.5 GM/dL (10.7-15.3)
--- NOTE | 2018-10-07 12:56 | PN ---
Progress Note, Physician History of Present Illness: pt seen/ examined chart reviewed awake/ comfortable no distress denies pain got one unit of prbcs and going to get 2nd - Current Medication List Current Medications: Active Medications Albuterol Sulfate (Ventolin 0.083% Nebulizer Soln -) 1 amp NEB Q6H PRN PRN Reason: SHORT OF BREATH/WHEEZING Budesonide/Formoterol Fumarate (Symbicort 80/4.5mcg -) 2 puff IH BID [facility] Dextrose/Sodium Chloride (D5-1/2ns -) 1,000 mls @ 42 mls/hr IV ASDIR [facility] Last Admin: 10/07/18 06:05 Dose: 42 mls/hr Multi-Ingredient Ointment (Zinc Oxide) 1 applic TP BID [facility] Pantoprazole Sodium (Protonix Iv) 40 mg IVPUSH DAILY [facility] Sertraline HCl (Zoloft -) 50 mg PO DAILY [facility]ORGE - Objective Vital Signs: Vital Signs Temperature 97.8 F 10/07/18 08:55 Pulse Rate 70 10/07/18 08:55 Respiratory Rate 18 10/07/18 08:55 Blood Pressure 129/90 10/07/18 08:55 O2 Sat by Pulse Oximetry (%) 98 10/07/18 08:55 Constitutional: Yes: No Distress, Calm Neck: Yes: Supple Cardiovascular: Yes: Regular Rate and Rhythm Respiratory: Yes: Diminished Gastrointestinal: Yes: Normal Bowel Sounds, Soft Edema: LLE: Trace, RLE: Trace Neurological: Yes: Alert Labs: CBC, BMP 10/07/18 11:55 10/07/18 03:28 INR, PTT INR 1.97 (0.83-1.09) H 10/07/18 03:28 Problem List - Problems (1) Anemia requiring transfusions Code(s): D64.9 - ANEMIA, UNSPECIFIED (2) GI (gastrointestinal bleed) Code(s): K92.2 - GASTROINTESTINAL HEMORRHAGE, UNSPECIFIED (3) Chronic atrial fibrillation Code(s): I48.2 - CHRONIC ATRIAL FIBRILLATION (4) Dementia Code(s): F03.90 - UNSPECIFIED DEMENTIA WITHOUT BEHAVIORAL DISTURBANCE (5) Elevated troponin Code(s): R74.8 - ABNORMAL LEVELS OF OTHER SERUM ENZYMES Assessment/Plan gi bleed transfuse lasix afterwards hold a/c cardiology consult noted / appreciated gi to follow will follow condition gaurded
[2018-10-07] MEDS ORDERED: FUROSEMIDE 40 MG/4 ML INJECTABLE VIAL IVPUSH SCH (12:58)
[2018-10-07] MEDS: SERTRALINE HCL 50 MG TABLET (FP) PO SCH (17:31)
[2018-10-07] MEDS: BUDESONIDE/FORMETEROL FUMARATE 80/4.5 mcg INHALER IH SCH ×2 (17:32→21:43)
[2018-10-07] MEDS: ZINC OXIDE 20% TOPICAL OINTMENT 30 GM TUBE TP SCH (17:33)
[2018-10-08] MEDS: ALBUTEROL SO4 0.083% IH SOL 2.5 MG/3 ML VIAL.NEB. NEB PRN (02:15)
[2018-10-08] MEDS: ZINC OXIDE 20% TOPICAL OINTMENT 30 GM TUBE TP SCH ×3 (07:35→22:08)
[2018-10-08] MEDS: DEXTROSE 5%-0.45% SALINE 1,000 ML IV SCH (07:35)
[2018-10-08 08:02] LABS: BASO % 0.9 % (0-2.0); EOS % 5.1 % (0-4.5); HEMATOCRIT 24.1 % (32.4-45.2); HEMOGLOBIN 7.7 GM/dL (10.7-15.3); LYMPH % 32.9 % (8-40); MCH 22.9 pg (25.7-33.7); MCHC 31.8 g/dl (32.0-36.0); MEAN PLT VOLUME 9.1 fl (7.5-11.1); NEUT % 48.1 % (42.8-82.8); PLATELET COUNT 215 K/MM3 (134-434); RBC 3.34 M/mm3 (3.60-5.2); RDW 23.1 % (11.6-15.6); WHITE BLOOD COUNT 5.6 K/mm3 (4.0-10.0)
[2018-10-08 08:30] LABS: ALBUMIN 2.8 g/dl (3.4-5.0); ALK PHOS 80 U/L (45-117); ANION GAP 7 MMOL/L (8-16); BILIRUBIN,TOTAL 0.9 mg/dL (0.2-1); BLOOD UREA NITROGEN 31 mg/dL (7-18); CALCIUM 8.2 mg/dL (8.5-10.1); CHLORIDE 110 mmol/L (98-107); CO2 28 mmol/L (21-32); CREATININE 1.3 mg/dL (0.55-1.3); GLUCOSE,RANDOM 90 mg/dL (74-106); POTASSIUM 3.8 mmol/L (3.5-5.1); SGOT/AST 12 U/L (15-37); SGPT/ALT 11 U/L (13-61); SODIUM 144 mmol/L (136-145); TOT PROT 7.2 g/dl (6.4-8.2)
[2018-10-08] MEDS: PANTOPRAZOLE SODIUM 40 MG VIAL IVPUSH SCH (10:06)
[2018-10-08] MEDS: BUDESONIDE/FORMETEROL FUMARATE 80/4.5 mcg INHALER IH SCH ×2 (10:06→22:09)
[2018-10-08] MEDS: guaiFENesin 200 MG/10 ML 10 ML UNIT-DOSE CUPS PO PRN ×2 (10:06→22:09)
[2018-10-08] MEDS: SERTRALINE HCL 50 MG TABLET (FP) PO SCH (10:06)
--- NOTE | 2018-10-08 10:14 | PN ---
Progress Note, Physician Chief Complaint: no new complaints / no melena/ BRBR / abdominal pain - Current Medication List Current Medications: Active Medications Albuterol Sulfate (Ventolin 0.083% Nebulizer Soln -) 1 amp NEB Q6H PRN PRN Reason: SHORT OF BREATH/WHEEZING Last Admin: 10/08/18 02:15 Dose: 1 amp Budesonide/Formoterol Fumarate (Symbicort 80/4.5mcg -) 2 puff IH BID [facility] Last Admin: 10/08/18 10:06 Dose: 2 puff Guaifenesin (Robitussin -) 10 ml PO Q6H PRN PRN Reason: COUGH Last Admin: 10/08/18 10:06 Dose: 10 ml Dextrose/Sodium Chloride (D5-1/2ns -) 1,000 mls @ 42 mls/hr IV ASDIR [facility] Last Admin: 10/08/18 07:35 Dose: Not Given Multi-Ingredient Ointment (Zinc Oxide) 1 applic TP BID [facility] Last Admin: 10/08/18 10:07 Dose: Not Given Pantoprazole Sodium (Protonix Iv) 40 mg IVPUSH DAILY [facility] Last Admin: 10/08/18 10:06 Dose: 40 mg Sertraline HCl (Zoloft -) 50 mg PO DAILY [facility] Last Admin: 10/08/18 10:06 Dose: 50 mg - Objective Vital Signs: Vital Signs Temperature 98.0 F 10/08/18 06:00 Pulse Rate 86 10/08/18 06:00 Respiratory Rate 20 10/08/18 06:00 Blood Pressure 123/68 10/08/18 06:00 O2 Sat by Pulse Oximetry (%) 94 L 10/07/18 21:00 Constitutional: Yes: No Distress Eyes: Yes: WNL HENT: Yes: WNL Neck: Yes: WNL Cardiovascular: Yes: WNL, Regular Rate and Rhythm Respiratory: Yes: WNL, Regular, CTA Bilaterally Gastrointestinal: Yes: WNL, Normal Bowel Sounds, Soft Edema: No Labs: CBC, BMP 10/08/18 06:18 10/08/18 06:18 INR, PTT INR 1.97 (0.83-1.09) H 10/07/18 03:28 Problem List - Problems (1) Anemia requiring transfusions Code(s): D64.9 - ANEMIA, UNSPECIFIED (2) GI (gastrointestinal bleed) Assessment/Plan: - clear liquid diet; npo midnight for diagnostic egd Tuesday - PPI therapy - serial cbc Q12 - avoid nsaid hold a/c - repeat INR ordered (goal inr for procedure less than or equal to 1.5 ) - cardiology risk stratification prior to endoscopic procedure (consultation noted) Code(s): K92.2 - GASTROINTESTINAL HEMORRHAGE, UNSPECIFIED (3) Elevated troponin Code(s): R74.8 - ABNORMAL LEVELS OF OTHER SERUM ENZYMES
--- NOTE | 2018-10-08 10:22 | CONS ---
DATE OF CONSULTATION: 10/07/2018 The patient is an 87-year-old woman who resides at the [facility]. She has a past medical history of atrial fibrillation, dementia, COPD, who was sent for further evaluation of anemia and a hemoglobin of 6.9 [facility]. The patient has dementia; therefore, the HPI is limited. There is no report of melena or hematochezia, abdominal pain, nausea, vomiting, or hematemesis. PAST MEDICAL/SURGICAL HISTORY: As listed in the HPI. ALLERGIES: MORPHINE, PENICILLIN, and SHELLFISH. SOCIAL HISTORY: She denies smoking, drinking, or drug use. FAMILY HISTORY: Unable to obtain. HOME MEDICATIONS: Albuterol, Symbicort, lisinopril, Xarelto, Zoloft, Zocor, zinc, Coreg, digoxin. PHYSICAL EXAMINATION: Vital Signs: Temperature 97, pulse 70, blood pressure 129/90, respiratory rate 12, oxygen saturation 98% on room air. General: In no acute distress. HEENT: Anicteric sclerae. Cardiovascular: S1, S2, regular rate and rhythm. Lungs: Bilaterally clear to auscultation. Abdomen: Soft, nontender. Extremities: No edema. LABORATORIES: White blood cell count 5.6, hemoglobin 6.5, hematocrit 21, MCV 72, platelet count 208. INR 1.97. Sodium 142, potassium 4.1, BUN 42, creatinine 1.5. Lactic acid 1.6. Total bilirubin 0.5, AST 11, ALT 12. Troponin 0.16. Stools positive for occult blood. She had a chest x-ray, which revealed atelectasis versus an infiltrate in the left base. IMPRESSION: Microcytic anemia in the setting of anticoagulation therapy for an arrhythmia. Included in the differential diagnosis is peptic ulcer disease, angiectasia, adenocarcinoma. RECOMMENDATION: Transfuse to a hemoglobin of 10 or greater, hold anticoagulation for now, trend CBC q.12. If she requires further anticoagulation, I would recommend a diagnostic upper endoscopy to exclude peptic ulcer disease prior to starting her back on her anticoagulation. She should be risk stratified by Cardiology prior to any endoscopic procedures. Also, start her on Protonix 40 mg IV b.i.d. If her hemoglobin and hematocrit remain stable, she can be started on a clear liquid diet, which then can be advanced to full liquids. Patient will be followed by the GI Service. DO SERENA LAINEZ/[id number]
--- NOTE | 2018-10-08 11:19 | PN ---
Progress Note, Physician History of Present Illness: No CV events overnight Tele: Afib to min 40s - Current Medication List Current Medications: Active Medications Albuterol Sulfate (Ventolin 0.083% Nebulizer Soln -) 1 amp NEB Q6H PRN PRN Reason: SHORT OF BREATH/WHEEZING Last Admin: 10/08/18 02:15 Dose: 1 amp Budesonide/Formoterol Fumarate (Symbicort 80/4.5mcg -) 2 puff IH BID [facility] Last Admin: 10/08/18 10:06 Dose: 2 puff Guaifenesin (Robitussin -) 10 ml PO Q6H PRN PRN Reason: COUGH Last Admin: 10/08/18 10:06 Dose: 10 ml Dextrose/Sodium Chloride (D5-1/2ns -) 1,000 mls @ 42 mls/hr IV ASDIR [facility] Last Admin: 10/08/18 07:35 Dose: Not Given Multi-Ingredient Ointment (Zinc Oxide) 1 applic TP BID [facility] Last Admin: 10/08/18 10:07 Dose: Not Given Pantoprazole Sodium (Protonix Iv) 40 mg IVPUSH DAILY [facility] Last Admin: 10/08/18 10:06 Dose: 40 mg Sertraline HCl (Zoloft -) 50 mg PO DAILY [facility] Last Admin: 10/08/18 10:06 Dose: 50 mg - Objective Vital Signs: Vital Signs Temperature 98.0 F 10/08/18 06:00 Pulse Rate 86 10/08/18 06:00 Respiratory Rate 20 10/08/18 06:00 Blood Pressure 123/68 10/08/18 06:00 O2 Sat by Pulse Oximetry (%) 94 L 10/07/18 21:00 Constitutional: Yes: No Distress Eyes: Yes: WNL HENT: Yes: WNL Neck: Yes: WNL Cardiovascular: Yes: Pulse Irregular Respiratory: Yes: CTA Bilaterally Gastrointestinal: Yes: Normal Bowel Sounds Extremities: Yes: WNL Edema: No Labs: CBC, BMP 10/08/18 06:18 10/08/18 06:18 INR, PTT INR 1.97 (0.83-1.09) H 10/07/18 03:28 Assessment/Plan 87 yo female with dementia, HTN and AF on DOAC now with anemia 1) Anemia -Hgb 7.7 today -Undergoing GI evaluation -Transfuse as per PMD -Continue to hold Xarelto and Asa 2) Afib -Chronic AF according to prior cards notes from 03/2018 -On Xarelto at [place] -On Hold for anemia now -Echo with preserved LVEF, severe MR and mild AI 3) (+) troponin -Flat trend without symptoms -Not consistent with ACS and likely represents a demand state (Type II) from anemia She is stable and optimized for GI evaluation.
--- NOTE | 2018-10-08 11:45 | PN ---
Progress Note (short form) - Note Progress Note: pt seen/ examined chart reviewed all f/u noted no obvious bleeding cough + productive Vital Signs Temp 98.0 F 10/08/18 06:00 Pulse 86 10/08/18 06:00 Resp 20 10/08/18 06:00 BP 123/68 10/08/18 06:00 Pulse Ox 94 L 10/07/18 21:00 Intake & Output 10/07/18 10/07/18 10/08/18 11:59 23:59 11:59 Intake Total 350 350 420 Balance 350 350 420 Weight 170 lb 3.2 oz Intake: IV 420 D5-1/2Ns - 1,000 ml @ 42 420 mls/hr IV [facility] Rx#: [id number] Packed Cells 350 350 Other: Voiding Method Diaper Diaper # Unmeasured Voids Void 1 2 Bowel Movement Yes # Bowel Movements 1 Height 5 ft 1 in Body Mass Index (BMI) 32.1 Weight Measurement Method Estimated by Staff Active Medications Albuterol Sulfate (Ventolin 0.083% Nebulizer Soln -) 1 amp NEB Q6H PRN PRN Reason: SHORT OF BREATH/WHEEZING Last Admin: 10/08/18 02:15 Dose: 1 amp Budesonide/Formoterol Fumarate (Symbicort 80/4.5mcg -) 2 puff IH BID [facility] Last Admin: 10/08/18 10:06 Dose: 2 puff Guaifenesin (Robitussin -) 10 ml PO Q6H PRN PRN Reason: COUGH Last Admin: 10/08/18 10:06 Dose: 10 ml Dextrose/Sodium Chloride (D5-1/2ns -) 1,000 mls @ 42 mls/hr IV [facility] Last Admin: 10/08/18 07:35 Dose: Not Given Levofloxacin (Levaquin 500 Mg Premixed Ivpb -) 500 mg in 100 mls @ 100 mls/hr IVPB DAILY [facility]; Protocol Multi-Ingredient Ointment (Zinc Oxide) 1 applic TP BID [facility] Last Admin: 10/08/18 10:07 Dose: Not Given Pantoprazole Sodium (Protonix Iv) 40 mg IVPUSH DAILY [facility] Last Admin: 10/08/18 10:06 Dose: 40 mg Sertraline HCl (Zoloft -) 50 mg PO DAILY [facility] Last Admin: 10/08/18 10:06 Dose: 50 mg CBC, BMP 10/08/18 06:18 10/08/18 06:18 Physical Exam Constitutional: Yes: No Distress, Calm Neck: Yes: Supple Cardiovascular: Yes: Regular Rate and Rhythm Respiratory: Yes: Diminished Gastrointestinal: Yes: Normal Bowel Sounds, Soft Edema: LLE: Trace, RLE: Trace Neurological: Yes: Alert. Poor historian Assessment/Plan gi bleed transfuse prn lasix afterwards hold a/c cardiology consult noted / appreciated egd tomorrow abx for pneumonia will follow discussed with nursing staff also Problem List - Problems (1) Anemia requiring transfusions Code(s): D64.9 - ANEMIA, UNSPECIFIED (2) GI (gastrointestinal bleed) Code(s): K92.2 - GASTROINTESTINAL HEMORRHAGE, UNSPECIFIED (3) Chronic atrial fibrillation Code(s): I48.2 - CHRONIC ATRIAL FIBRILLATION (4) Dementia Code(s): F03.90 - UNSPECIFIED DEMENTIA WITHOUT BEHAVIORAL DISTURBANCE (5) Elevated troponin Code(s): R74.8 - ABNORMAL LEVELS OF OTHER SERUM ENZYMES
[2018-10-09 07:18] LABS: INR 1.45 (0.83-1.09); PROTHROMBIN TIME (PATIENT) 17.2 SEC (9.7-13.0)
[2018-10-09] MEDS: DEXTROSE 5%-0.45% SALINE 1,000 ML IV SCH (09:27)
[2018-10-09] MEDS: PANTOPRAZOLE SODIUM 40 MG VIAL IVPUSH SCH (09:43)
[2018-10-09] MEDS: SERTRALINE HCL 50 MG TABLET (FP) PO SCH (09:43)
[2018-10-09] MEDS: ZINC OXIDE 20% TOPICAL OINTMENT 30 GM TUBE TP SCH ×2 (09:43→22:35)
[2018-10-09] MEDS: BUDESONIDE/FORMETEROL FUMARATE 80/4.5 mcg INHALER IH SCH ×2 (09:46→22:35)
--- NOTE | 2018-10-09 12:08 | PN ---
Progress Note (short form) - Note Progress Note: Deferring colonoscopy today as patient is in AF with RVR in 130s Will tentatively plan for tomorrow IF heart rate is better controlled and electrolytes improved Patient can remain on clear liquids today, NPO after midnight Please touch base with GI early in am tomorrow - if stable, can receive small volume additional prep for colonoscopy Tuesday
--- NOTE | 2018-10-09 12:33 | PN ---
Progress Note (short form) - Note Progress Note: for Endo today. discussed with Dr. Cherry -- Issues with consent -- need to have from court appointed dustinan -- not from Daughter- in law Vital Signs Temp 98 F 10/09/18 10:00 Pulse 78 10/09/18 10:00 Resp 18 10/09/18 10:00 BP 142/86 10/09/18 10:00 Pulse Ox 98 10/09/18 09:00 Intake & Output 10/08/18 10/09/18 10/09/18 23:59 11:59 23:59 Intake Total 1162 500 Balance 1162 500 Intake: IV 622 500 D5-1/2Ns - 1,000 ml @ 42 622 500 mls/hr IV [facility] Rx#: [id number] IVPB 100 Oral 440 Other: Voiding Method Diaper Diaper # Unmeasured Voids Void 2 1 Bowel Movement Yes # Bowel Movements 1 Active Medications Albuterol Sulfate (Ventolin 0.083% Nebulizer Soln -) 1 amp NEB Q6H PRN PRN Reason: SHORT OF BREATH/WHEEZING Last Admin: 10/08/18 02:15 Dose: 1 amp Budesonide/Formoterol Fumarate (Symbicort 80/4.5mcg -) 2 puff IH BID [facility] Last Admin: 10/09/18 09:46 Dose: 2 puff Guaifenesin (Robitussin -) 10 ml PO Q6H PRN PRN Reason: COUGH Last Admin: 10/08/18 22:09 Dose: 10 ml Dextrose/Sodium Chloride (D5-1/2ns -) 1,000 mls @ 42 mls/hr IV [facility] Last Admin: 10/09/18 09:27 Dose: 42 mls/hr Levofloxacin (Levaquin 250 Mg Premixed Ivpb -) 250 mg in 50 mls @ 50 mls/hr IVPB DAILY [facility]; Protocol Last Admin: 10/09/18 09:42 Dose: 50 mls/hr Multi-Ingredient Ointment (Zinc Oxide) 1 applic TP BID [facility] Last Admin: 10/09/18 09:43 Dose: Not Given Pantoprazole Sodium (Protonix Iv) 40 mg IVPUSH DAILY [facility] Last Admin: 10/09/18 09:43 Dose: 40 mg Sertraline HCl (Zoloft -) 50 mg PO DAILY [facility] Last Admin: 10/09/18 09:43 Dose: 50 mg CBC, BMP 10/08/18 06:18 10/08/18 06:18 INR, PTT INR 1.45 (0.83-1.09) H 10/09/18 05:30 Physical Exam Constitutional: Yes: No Distress, Comfortable Neck: Yes: Supple Cardiovascular: Yes: Regular Rate and Rhythm Respiratory: Yes: Diminished Gastrointestinal: Yes: Normal Bowel Sounds, Soft Edema: LLE: Trace, RLE: Trace Neurological: Yes: Alert Assessment/Plan comfortable egd-- abx continue present care f/u cxr - in am will follow Problem List - Problems (1) Anemia requiring transfusions Code(s): D64.9 - ANEMIA, UNSPECIFIED (2) GI (gastrointestinal bleed) Code(s): K92.2 - GASTROINTESTINAL HEMORRHAGE, UNSPECIFIED (3) Chronic atrial fibrillation Code(s): I48.2 - CHRONIC ATRIAL FIBRILLATION (4) Dementia Code(s): F03.90 - UNSPECIFIED DEMENTIA WITHOUT BEHAVIORAL DISTURBANCE (5) Elevated troponin Code(s): R74.8 - ABNORMAL LEVELS OF OTHER SERUM ENZYMES
--- NOTE | 2018-10-09 13:17 | PN ---
Progress Note (short form) - Note Progress Note: Brief EGD report, please see full report once scanned and in paper chart EGD normal, no source of bleeding or anemia identified, no biopsies taken Will discuss with court appointed guardian regarding colonoscopy Please add iron studies and ferritin to pre-transfusion labs
--- NOTE | 2018-10-09 14:58 | PN ---
Progress Note (short form) - Note Progress Note: s: Current Medications Albuterol Sulfate (Ventolin 0.083% Nebulizer Soln -) 1 amp NEB Q6H PRN PRN Reason: SHORT OF BREATH/WHEEZING Last Admin: 10/08/18 02:15 Dose: 1 amp Budesonide/Formoterol Fumarate (Symbicort 80/4.5mcg -) 2 puff IH BID [facility] Last Admin: 10/09/18 09:46 Dose: 2 puff Guaifenesin (Robitussin -) 10 ml PO Q6H PRN PRN Reason: COUGH Last Admin: 10/08/18 22:09 Dose: 10 ml Dextrose/Sodium Chloride (D5-1/2ns -) 1,000 mls @ 42 mls/hr IV [facility] Last Admin: 10/09/18 09:27 Dose: 42 mls/hr Levofloxacin (Levaquin 250 Mg Premixed Ivpb -) 250 mg in 50 mls @ 50 mls/hr IVPB DAILY [facility]; Protocol Last Admin: 10/09/18 09:42 Dose: 50 mls/hr Multi-Ingredient Ointment (Zinc Oxide) 1 applic TP BID [facility] Last Admin: 10/09/18 09:43 Dose: Not Given Pantoprazole Sodium (Protonix Iv) 40 mg IVPUSH DAILY [facility] Last Admin: 10/09/18 09:43 Dose: 40 mg Sertraline HCl (Zoloft -) 50 mg PO DAILY [facility] Last Admin: 10/09/18 09:43 Dose: 50 mg Vital Signs Period Temp Pulse Resp BP Sys/Pisano Pulse Ox Last 24 Hr 98 F-99.0 F 68-85 16-22 132-157/82-98 92-99 Constitutional: Yes: No Distress Eyes: Yes: WNL HENT: Yes: WNL Neck: Yes: WNL Cardiovascular: Yes: Pulse Irregular Respiratory: Yes: CTA Bilaterally Gastrointestinal: Yes: Normal Bowel Sounds Extremities: Yes: WNL Edema: No tele: afib, rate ok Assessment/Plan 87 yo female with dementia, HTN and AF on DOAC now with anemia Anemia -Undergoing GI evaluation, s/p EGD normal with plans for colonoscopy -Transfuse as per PMD -Continue to hold Xarelto and Asa Afib -Chronic AF according to prior cards notes from 03/2018 -On Xarelto at [place] -On Hold for anemia now -Echo with preserved LVEF, severe MR and mild AI (+) troponin -Flat trend without symptoms -Not consistent with ACS and likely represents a demand state (Type II) from anemia She is stable and optimized for GI evaluation.
[2018-10-10] MEDS: DEXTROSE 5%-0.45% SALINE 1,000 ML IV SCH (05:53)
[2018-10-10 07:06] LABS: BASO % 0.8 % (0-2.0); EOS % 4.8 % (0-4.5); HEMATOCRIT 22.9 % (32.4-45.2); HEMOGLOBIN 7.1 GM/dL (10.7-15.3); LYMPH % 24.6 % (8-40); MCH 22.9 pg (25.7-33.7); MCHC 31.1 g/dl (32.0-36.0); MEAN CELL VOLUME 73.7 fl (80-96); MEAN PLT VOLUME 9.2 fl (7.5-11.1); MONO % 11.1 % (3.8-10.2); NEUT % 58.7 % (42.8-82.8); PLATELET COUNT 194 K/MM3 (134-434); RBC 3.11 M/mm3 (3.60-5.2); RDW 23.6 % (11.6-15.6); WHITE BLOOD COUNT 6.2 K/mm3 (4.0-10.0)
[2018-10-10 07:32] LABS: ALBUMIN 2.7 g/dl (3.4-5.0); ALK PHOS 73 U/L (45-117); ANION GAP 6 MMOL/L (8-16); BILIRUBIN,TOTAL 1.3 mg/dL (0.2-1); BLOOD UREA NITROGEN 17 mg/dL (7-18); CALCIUM 8.2 mg/dL (8.5-10.1); CHLORIDE 108 mmol/L (98-107); CO2 28 mmol/L (21-32); CREATININE 1.1 mg/dL (0.55-1.3); GLUCOSE,RANDOM 89 mg/dL (74-106); POTASSIUM 3.8 mmol/L (3.5-5.1); SGOT/AST 13 U/L (15-37); SGPT/ALT 11 U/L (13-61); SODIUM 142 mmol/L (136-145); TOT PROT 6.9 g/dl (6.4-8.2)
[2018-10-10] MEDS: BUDESONIDE/FORMETEROL FUMARATE 80/4.5 mcg INHALER IH SCH ×2 (10:00→22:20)
[2018-10-10] MEDS: SERTRALINE HCL 50 MG TABLET (FP) PO SCH (10:06)
[2018-10-10] MEDS: PANTOPRAZOLE SODIUM 40 MG VIAL IVPUSH SCH (10:06)
--- NOTE | 2018-10-10 11:18 | PN ---
Progress Note (short form) - Note Progress Note: Events noted no complaints no dizziness no SOB no abd pain Vital Signs - 24 hr 10/09/18 10/09/18 10/09/18 13:14 13:29 16:13 Temperature 98.4 F 97.8 F Pulse Rate 83 68 86 Respiratory 16 22 H 22 H Rate Blood Pressure 132/98 150/96 146/88 O2 Sat by Pulse 92 L 99 Oximetry (%) 10/09/18 10/09/18 10/09/18 18:30 20:49 23:15 Temperature 98.1 F 98.2 F Pulse Rate 63 76 Respiratory 22 H 22 H 22 H Rate Blood Pressure 156/95 155/75 O2 Sat by Pulse 99 Oximetry (%) 10/10/18 10/10/18 10/10/18 01:25 05:06 08:21 Temperature 98.3 F 99 F Pulse Rate 81 86 Respiratory 20 22 H 22 H Rate Blood Pressure 125/91 141/95 O2 Sat by Pulse 99 Oximetry (%) 10/10/18 09:00 Temperature 98 F Pulse Rate 86 Respiratory 22 H Rate Blood Pressure 142/89 O2 Sat by Pulse Oximetry (%) Current Medications Generic Name Dose Route Start Last Admin Trade Name Freq PRN Reason Stop Dose Admin Albuterol Sulfate 1 amp 10/07/18 06:26 10/08/18 02:15 Ventolin 0.083% Nebulizer Soln - NEB 1 amp Q6H PRN Administration SHORT OF BREATH/WHEEZING Budesonide/Formoterol Fumarate 2 puff 10/07/18 10:00 10/09/18 22:35 Symbicort 80/4.5mcg - IH Not Given BID [facility] Guaifenesin 10 ml 10/08/18 09:47 10/08/18 22:09 Robitussin - PO 10 ml Q6H PRN Administration COUGH Dextrose/Sodium Chloride 1,000 mls @ 42 mls/hr 10/07/18 05:30 10/10/18 05:53 D5-1/2ns - IV 42 mls/hr [facility] Administration Levofloxacin 250 mg in 50 mls @ 50 mls/hr 10/09/18 10:00 10/10/18 10:07 Levaquin 250 Mg Premixed Ivpb - IVPB 50 mls/hr DAILY [facility] Administration Protocol Multi-Ingredient Ointment 1 applic 10/07/18 10:00 10/09/18 22:35 Zinc Oxide TP Not Given BID [facility] Pantoprazole Sodium 40 mg 10/08/18 10:00 10/10/18 10:06 Protonix Iv IVPUSH 40 mg DAILY [facility] Administration Sertraline HCl 50 mg 10/07/18 10:00 10/10/18 10:06 Zoloft - PO 50 mg DAILY [facility] Administration Laboratory Results - last 24 hr 10/07/18 10/10/18 10/10/18 03:28 05:30 05:30 WBC 6.2 RBC 3.11 L Hgb 7.1 L Hct 22.9 L MCV 73.7 L MCH 22.9 L MCHC 31.1 L RDW 23.6 H Plt Count 194 MPV 9.2 Absolute Neuts (auto) 3.6 Neutrophils % 58.7 D Lymphocytes % 24.6 D Monocytes % 11.1 H Eosinophils % 4.8 H Basophils % 0.8 Nucleated RBC % 2 H Sodium 142 Potassium 3.8 Chloride 108 H Carbon Dioxide 28 Anion Gap 6 L BUN 17 Creatinine 1.1 Creat Clearance w eGFR 47.21 Random Glucose 89 Calcium 8.2 L Total Bilirubin 1.3 H AST 13 L ALT 11 L Alkaline Phosphatase 73 Total Protein 6.9 Albumin 2.7 L TSH 2.54 Blood Type O POSITIVE Antibody Screen Negative Crossmatch See Detail No pallor S1 S2 Irregular Lungs clear Abd- soft, obese, NT no edema PLAN HB decreased monitor cbc no active bleeding Off Xarelto and Aspirin awaiting colonoscopy EGD results noted on Protonix IV Problem List - Problems (1) Anemia requiring transfusions Code(s): D64.9 - ANEMIA, UNSPECIFIED (2) COPD (chronic obstructive pulmonary disease) Code(s): J44.9 - CHRONIC OBSTRUCTIVE PULMONARY DISEASE, UNSPECIFIED (3) GI (gastrointestinal bleed) Code(s): K92.2 - GASTROINTESTINAL HEMORRHAGE, UNSPECIFIED (4) Chronic atrial fibrillation Code(s): I48.2 - CHRONIC ATRIAL FIBRILLATION (5) Dementia Code(s): F03.90 - UNSPECIFIED DEMENTIA WITHOUT BEHAVIORAL DISTURBANCE (6) Elevated troponin Code(s): R74.8 - ABNORMAL LEVELS OF OTHER SERUM ENZYMES
[2018-10-10 11:28] LABS: ANISOCYTOSIS 1+; MACROCYTOSIS 0; PLATELET ESTIMATE NORMAL; TARGET CELLS 1+
--- NOTE | 2018-10-10 12:13 | PN ---
Progress Note (short form) - Note Progress Note: s: appears comfortable, not responding to questions appropriately Current Medications Albuterol Sulfate (Ventolin 0.083% Nebulizer Soln -) 1 amp NEB Q6H PRN PRN Reason: SHORT OF BREATH/WHEEZING Last Admin: 10/08/18 02:15 Dose: 1 amp Budesonide/Formoterol Fumarate (Symbicort 80/4.5mcg -) 2 puff IH BID [facility] Last Admin: 10/09/18 22:35 Dose: Not Given Guaifenesin (Robitussin -) 10 ml PO Q6H PRN PRN Reason: COUGH Last Admin: 10/08/18 22:09 Dose: 10 ml Dextrose/Sodium Chloride (D5-1/2ns -) 1,000 mls @ 42 mls/hr IV [facility] Last Admin: 10/10/18 05:53 Dose: 42 mls/hr Levofloxacin (Levaquin 250 Mg Premixed Ivpb -) 250 mg in 50 mls @ 50 mls/hr IVPB DAILY [facility]; Protocol Last Admin: 10/10/18 10:07 Dose: 50 mls/hr Multi-Ingredient Ointment (Zinc Oxide) 1 applic TP BID [facility] Last Admin: 10/09/18 22:35 Dose: Not Given Pantoprazole Sodium (Protonix Iv) 40 mg IVPUSH DAILY [facility] Last Admin: 10/10/18 10:06 Dose: 40 mg Sertraline HCl (Zoloft -) 50 mg PO DAILY [facility] Last Admin: 10/10/18 10:06 Dose: 50 mg Vital Signs Period Temp Pulse Resp BP Sys/Pisano Pulse Ox Last 24 Hr 97.8 F-99 F 63-86 16-22 125-156/75-98 92-99 Constitutional: Yes: No Distress Eyes: Yes: WNL HENT: Yes: WNL Neck: Yes: WNL Cardiovascular: Yes: Pulse Irregular Respiratory: Yes: CTA Bilaterally Gastrointestinal: Yes: Normal Bowel Sounds Extremities: Yes: WNL Edema: No tele: afib, rate ok Assessment/Plan 87 yo female with dementia, HTN and AF on DOAC now with anemia Anemia -Undergoing GI evaluation, s/p EGD normal with plans for colonoscopy -Transfuse as per PMD -Continue to hold Xarelto and Asa - stable from cardiac perspective and optimized for GI evaluation Afib -Chronic AF according to prior cards notes from 03/2018 -On Xarelto at [place] -On Hold for anemia now -Echo with preserved LVEF, severe MR and mild AI (+) troponin -Flat trend without symptoms -Not consistent with ACS and likely represents a demand state (Type II) from anemia
--- NOTE | 2018-10-10 13:57 | EKG ---
Test Reason : Blood Pressure : / mmHG Vent. Rate : 056 BPM Atrial Rate : 056 BPM P-R Int : 000 ms QRS Dur : 086 ms QT Int : 406 ms P-R-T Axes : 000 010 214 degrees QTc Int : 391 ms UNDETERMINED RHYTHM ABNORMAL ECG WHEN COMPARED WITH ECG OF 16-MAR-2018 12:13, CURRENT UNDETERMINED RHYTHM PRECLUDES RHYTHM COMPARISON, NEEDS REVIEW Confirmed by MD Bermudez Daniel ([id number]) on 10/10/2018 1:57:18 PM Referred By: Confirmed By:Drew Bermudez MD
--- NOTE | 2018-10-10 14:59 | PN ---
Progress Note (short form) - Note Progress Note: No overt bleeding reported. Called and left message to discuss plan for colonoscopy with Ms. Lee's court appointed guardian. Per Dr. Gómez 's note yesterday, she had discussion with Ms. Lee's guardian Hoda Paul and she was undecided regarding proceeding with colonoscopy. I left my office number so that she could contact me.
[2018-10-10 15:44] LABS: HEMATOCRIT 23.1 % (32.4-45.2); HEMOGLOBIN 7.2 GM/dL (10.7-15.3); MCHC 31.2 g/dl (32.0-36.0); MEAN CELL VOLUME 73.7 fl (80-96); MEAN PLT VOLUME 8.3 fl (7.5-11.1); PLATELET COUNT 189 K/MM3 (134-434); RBC 3.14 M/mm3 (3.60-5.2); RDW 23.5 % (11.6-15.6)
[2018-10-10] MEDS: ZINC OXIDE 20% TOPICAL OINTMENT 30 GM TUBE TP SCH ×2 (18:21→22:21)
[2018-10-11] MEDS: ALBUTEROL SO4 0.083% IH SOL 2.5 MG/3 ML VIAL.NEB. NEB PRN (06:03)
[2018-10-11] MEDS: DEXTROSE 5%-0.45% SALINE 1,000 ML IV SCH ×2 (06:11→16:06)
[2018-10-11 06:44] LABS: HEMOGLOBIN 8.6 GM/dL (10.7-15.3); MCH 23.8 pg (25.7-33.7); MEAN CELL VOLUME 74.3 fl (80-96); MEAN PLT VOLUME 9.1 fl (7.5-11.1); PLATELET COUNT 191 K/MM3 (134-434); RBC 3.63 M/mm3 (3.60-5.2); RDW 23.8 % (11.6-15.6)
[2018-10-11 07:02] LABS: ANION GAP 6 MMOL/L (8-16); BLOOD UREA NITROGEN 16 mg/dL (7-18); CALCIUM 8.2 mg/dL (8.5-10.1); CHLORIDE 108 mmol/L (98-107); CO2 27 mmol/L (21-32); CREATININE 1.1 mg/dL (0.55-1.3); GLUCOSE,RANDOM 93 mg/dL (74-106); POTASSIUM 3.6 mmol/L (3.5-5.1); SODIUM 140 mmol/L (136-145)
[2018-10-11] MEDS: PANTOPRAZOLE SODIUM 40 MG VIAL IVPUSH SCH (09:44)
[2018-10-11] MEDS: SERTRALINE HCL 50 MG TABLET (FP) PO SCH (09:44)
[2018-10-11] MEDS: BUDESONIDE/FORMETEROL FUMARATE 80/4.5 mcg INHALER IH SCH ×2 (09:45→22:46)
[2018-10-11] MEDS: ZINC OXIDE 20% TOPICAL OINTMENT 30 GM TUBE TP SCH ×2 (10:09→22:46)
--- NOTE | 2018-10-11 11:51 | PN ---
Progress Note (short form) - Note Progress Note: no complaints no dizziness no SOB no abd pain Vital Signs - 24 hr 10/10/18 10/10/18 10/10/18 14:00 17:00 21:00 Temperature 98.1 F 98.2 F 98.5 F Pulse Rate 86 88 88 Respiratory 20 20 Rate Blood Pressure 147/90 150/86 143/84 O2 Sat by Pulse 98 Oximetry (%) 10/11/18 10/11/18 10/11/18 01:54 05:00 06:00 Temperature 98.5 F 98.7 F 98.7 F Pulse Rate 85 90 90 Respiratory 20 20 20 Rate Blood Pressure 156/97 143/90 143/90 O2 Sat by Pulse Oximetry (%) Current Medications Generic Name Dose Route Start Last Admin Trade Name Freq PRN Reason Stop Dose Admin Albuterol Sulfate 1 amp 10/07/18 06:26 10/11/18 06:03 Ventolin 0.083% Nebulizer Soln - NEB 1 amp Q6H PRN Administration SHORT OF BREATH/WHEEZING Budesonide/Formoterol Fumarate 2 puff 10/07/18 10:00 10/11/18 09:45 Symbicort 80/4.5mcg - IH 2 puff BID [facility] Administration Guaifenesin 10 ml 10/08/18 09:47 10/08/18 22:09 Robitussin - PO 10 ml Q6H PRN Administration COUGH Dextrose/Sodium Chloride 1,000 mls @ 42 mls/hr 10/07/18 05:30 10/11/18 06:11 D5-1/2ns - IV 42 mls/hr [facility] Administration Levofloxacin 250 mg in 50 mls @ 50 mls/hr 10/09/18 10:00 10/11/18 09:43 Levaquin 250 Mg Premixed Ivpb - IVPB 50 mls/hr DAILY [facility] Administration Protocol Multi-Ingredient Ointment 1 applic 10/07/18 10:00 10/11/18 10:09 Zinc Oxide TP 1 applic BID [facility] Administration Pantoprazole Sodium 40 mg 10/08/18 10:00 10/11/18 09:44 Protonix Iv IVPUSH 40 mg DAILY [facility] Administration Sertraline HCl 50 mg 10/07/18 10:00 10/11/18 09:44 Zoloft - PO 50 mg DAILY [facility] Administration Laboratory Results - last 24 hr 10/07/18 10/10/18 10/10/18 03:28 05:30 14:40 WBC 6.0 RBC 3.14 L Hgb 7.2 L Hct 23.1 L MCV 73.7 L MCH 23.0 L MCHC 31.2 L RDW 23.5 H Plt Count 189 MPV 8.3 Hypochromia 1+ Platelet Estimate Normal Polychromasia 1+ Poikilocytosis 2+ Anisocytosis 1+ Microcytosis 1+ Macrocytosis 0 Target Cells 1+ Sodium Potassium Chloride Carbon Dioxide Anion Gap BUN Creatinine Creat Clearance w eGFR Random Glucose Calcium Blood Type O POSITIVE Antibody Screen Negative Crossmatch See Detail 10/10/18 10/11/18 10/11/18 16:40 05:30 05:30 WBC 7.0 RBC 3.63 Hgb 8.6 L Hct 27.0 L D MCV 74.3 L MCH 23.8 L MCHC 32.0 RDW 23.8 H Plt Count 191 MPV 9.1 Hypochromia Platelet Estimate Polychromasia Poikilocytosis Anisocytosis Microcytosis Macrocytosis Target Cells Sodium 140 Potassium 3.6 Chloride 108 H Carbon Dioxide 27 Anion Gap 6 L BUN 16 Creatinine 1.1 Creat Clearance w eGFR 47.21 Random Glucose 93 Calcium 8.2 L Blood Type O POSITIVE Antibody Screen Negative Crossmatch See Detail No pallor S1 S2 Irregular Lungs clear Abd- soft, obese, NT no edema PLAN HB decreased-- s/p PRBC GI trying to contact court appointed guardian for consent for colnoiscopy will try contacting as well-- I will call facility too monitor cbc no active bleeding Off Xarelto and Aspirin awaiting colonoscopy EGD results noted on Protonix IV Problem List - Problems (1) Anemia requiring transfusions Code(s): D64.9 - ANEMIA, UNSPECIFIED (2) COPD (chronic obstructive pulmonary disease) Code(s): J44.9 - CHRONIC OBSTRUCTIVE PULMONARY DISEASE, UNSPECIFIED (3) GI (gastrointestinal bleed) Code(s): K92.2 - GASTROINTESTINAL HEMORRHAGE, UNSPECIFIED (4) Chronic atrial fibrillation Code(s): I48.2 - CHRONIC ATRIAL FIBRILLATION (5) Dementia Code(s): F03.90 - UNSPECIFIED DEMENTIA WITHOUT BEHAVIORAL DISTURBANCE (6) Elevated troponin Code(s): R74.8 - ABNORMAL LEVELS OF OTHER SERUM ENZYMES
--- NOTE | 2018-10-11 11:52 | PN ---
Progress Note (short form) - Note Progress Note: s: appears comfortable, not responding to questions appropriately Current Medications Albuterol Sulfate (Ventolin 0.083% Nebulizer Soln -) 1 amp NEB Q6H PRN PRN Reason: SHORT OF BREATH/WHEEZING Last Admin: 10/11/18 06:03 Dose: 1 amp Budesonide/Formoterol Fumarate (Symbicort 80/4.5mcg -) 2 puff IH BID [facility] Last Admin: 10/11/18 09:45 Dose: 2 puff Guaifenesin (Robitussin -) 10 ml PO Q6H PRN PRN Reason: COUGH Last Admin: 10/08/18 22:09 Dose: 10 ml Dextrose/Sodium Chloride (D5-1/2ns -) 1,000 mls @ 42 mls/hr IV [facility] Last Admin: 10/11/18 06:11 Dose: 42 mls/hr Levofloxacin (Levaquin 250 Mg Premixed Ivpb -) 250 mg in 50 mls @ 50 mls/hr IVPB DAILY [facility]; Protocol Last Admin: 10/11/18 09:43 Dose: 50 mls/hr Multi-Ingredient Ointment (Zinc Oxide) 1 applic TP BID [facility] Last Admin: 10/11/18 10:09 Dose: 1 applic Pantoprazole Sodium (Protonix Iv) 40 mg IVPUSH DAILY [facility] Last Admin: 10/11/18 09:44 Dose: 40 mg Sertraline HCl (Zoloft -) 50 mg PO DAILY [facility] Last Admin: 10/11/18 09:44 Dose: 50 mg Vital Signs Period Temp Pulse Resp BP Sys/Pisano Pulse Ox Last 24 Hr 98.1 F-98.7 F 85-90 20-20 143-156/84-97 98 Constitutional: Yes: No Distress Eyes: Yes: WNL HENT: Yes: WNL Neck: Yes: WNL Cardiovascular: Yes: Pulse Irregular Respiratory: Yes: CTA Bilaterally Gastrointestinal: Yes: Normal Bowel Sounds Extremities: Yes: WNL Edema: No tele: afib, rate ok Assessment/Plan 87 yo female with dementia, HTN and AF on DOAC now with anemia Anemia -Undergoing GI evaluation, s/p EGD normal with plans for colonoscopy -Transfuse as per PMD -Continue to hold Xarelto and Asa - stable from cardiac perspective and optimized for GI evaluation Afib -Chronic AF according to prior cards notes from 03/2018 -On Xarelto at [place] -On Hold for anemia now -Echo with preserved LVEF, severe MR and mild AI (+) troponin -Flat trend without symptoms -Not consistent with ACS and likely represents a demand state (Type II) from anemia
--- NOTE | 2018-10-11 11:53 | PN ---
Progress Note (short form) - Note Progress Note: Unable to obtain permission from court-appointed guardian. Will reattempt later today. Message left with Hoda Paul at [phone], [phone] earlier today. Will proceed with clear liquid diet. Bowel prep instructions once Ok to proceed.
[2018-10-11] MEDS ORDERED: POLYETHYLENE GLYCOL 3350 255 GM BTL PO ONE (16:00)
[2018-10-12 08:15] LABS: HEMOGLOBIN 8.7 GM/dL (10.7-15.3); MCH 23.9 pg (25.7-33.7); MCHC 32.1 g/dl (32.0-36.0); MEAN CELL VOLUME 74.4 fl (80-96); MEAN PLT VOLUME 9.4 fl (7.5-11.1); PLATELET COUNT 195 K/MM3 (134-434); RBC 3.63 M/mm3 (3.60-5.2); WHITE BLOOD COUNT 7.4 K/mm3 (4.0-10.0)
--- NOTE | 2018-10-12 09:36 | PN ---
Progress Note (short form) - Note Progress Note: colonoscopy complete. Report left in procedural section of physucal chart and to be scanned into [employer]
[2018-10-12] MEDS: ZINC OXIDE 20% TOPICAL OINTMENT 30 GM TUBE TP SCH ×2 (10:00→22:04)
--- NOTE | 2018-10-12 10:40 | PN ---
Progress Note (short form) - Note Progress Note: no complaints spoke with GI Vital Signs - 24 hr 10/11/18 10/11/18 10/12/18 21:00 22:11 02:00 Temperature 98.8 F 98.9 F Pulse Rate 90 88 Respiratory 20 20 20 Rate Blood Pressure 130/80 126/86 O2 Sat by Pulse 97 Oximetry (%) 10/12/18 10/12/18 10/12/18 05:21 09:00 09:38 Temperature 99.0 F 99 F Pulse Rate 99 H 102 H Respiratory 20 24 H Rate Blood Pressure 127/88 106/86 O2 Sat by Pulse 95 97 Oximetry (%) Current Medications Generic Name Dose Route Start Last Admin Trade Name Freq PRN Reason Stop Dose Admin Albuterol Sulfate 1 amp 10/11/18 14:46 Ventolin 0.083% Nebulizer Soln - NEB Q6H PRN SHORT OF BREATH/WHEEZING Budesonide/Formoterol Fumarate 2 puff 10/11/18 22:00 10/12/18 12:19 Symbicort 80/4.5mcg - IH 2 puff BID [facility] Administration Guaifenesin 10 ml 10/11/18 14:46 10/12/18 12:17 Robitussin - PO 10 ml Q6H PRN Administration COUGH Dextrose/Sodium Chloride 1,000 mls @ 42 mls/hr 10/11/18 14:46 10/11/18 16:06 D5-1/2ns - IV 42 mls/hr [facility] Administration Levofloxacin 250 mg in 50 mls @ 50 mls/hr 10/12/18 10:00 10/12/18 12:17 Levaquin 250 Mg Premixed Ivpb - IVPB 50 mls/hr DAILY [facility] Administration Protocol Multi-Ingredient Ointment 1 applic 10/11/18 22:00 10/12/18 10:00 Zinc Oxide TP Not Given BID [facility] Pantoprazole Sodium 40 mg 10/12/18 10:00 10/12/18 12:17 Protonix Iv IVPUSH 40 mg DAILY [facility] Administration Sertraline HCl 50 mg 10/12/18 10:00 10/12/18 12:17 Zoloft - PO 50 mg DAILY [facility] Administration Laboratory Results - last 24 hr 10/12/18 06:00 WBC 7.4 RBC 3.63 Hgb 8.7 L Hct 27.0 L MCV 74.4 L MCH 23.9 L MCHC 32.1 RDW 24.0 H Plt Count 195 MPV 9.4 No pallor S1 S2 Irregular Lungs clear Abd- soft, obese, NT no edema PLAN s/p colonoscopy-- 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 left a message twice to don talley - [phone] will need to know further management - depending on the guardian for now , will monitor for bleeding continue with current meds Problem List - Problems (1) Anemia requiring transfusions Code(s): D64.9 - ANEMIA, UNSPECIFIED (2) COPD (chronic obstructive pulmonary disease) Code(s): J44.9 - CHRONIC OBSTRUCTIVE PULMONARY DISEASE, UNSPECIFIED (3) GI (gastrointestinal bleed) Code(s): K92.2 - GASTROINTESTINAL HEMORRHAGE, UNSPECIFIED (4) Chronic atrial fibrillation Code(s): I48.2 - CHRONIC ATRIAL FIBRILLATION (5) Dementia Code(s): F03.90 - UNSPECIFIED DEMENTIA WITHOUT BEHAVIORAL DISTURBANCE (6) Elevated troponin Code(s): R74.8 - ABNORMAL LEVELS OF OTHER SERUM ENZYMES
--- NOTE | 2018-10-12 11:47 | PN ---
Progress Note (short form) - Note Progress Note: s: appears comfortable, no cp sob palps dizzy Current Medications Generic Name Dose Route Start Last Admin Trade Name Freq PRN Reason Stop Dose Admin Albuterol Sulfate 1 amp 10/11/18 14:46 Ventolin 0.083% Nebulizer Soln - NEB Q6H PRN SHORT OF BREATH/WHEEZING Budesonide/Formoterol Fumarate 2 puff 10/11/18 22:00 10/11/18 22:46 Symbicort 80/4.5mcg - IH 2 puff BID GEORGE Administration Guaifenesin 10 ml 10/11/18 14:46 Robitussin - PO Q6H PRN COUGH Dextrose/Sodium Chloride 1,000 mls @ 42 mls/hr 10/11/18 14:46 10/11/18 16:06 D5-1/2ns - IV 42 mls/hr ASDIR GEORGE Administration Levofloxacin 250 mg in 50 mls @ 50 mls/hr 10/12/18 10:00 Levaquin 250 Mg Premixed Ivpb - IVPB DAILY GEORGE Protocol Multi-Ingredient Ointment 1 applic 10/11/18 22:00 10/11/18 22:46 Zinc Oxide TP 1 applic BID GEORGE Administration Pantoprazole Sodium 40 mg 10/12/18 10:00 Protonix Iv IVPUSH DAILY GEORGE Sertraline HCl 50 mg 10/12/18 10:00 Zoloft - PO DAILY GEORGE Vital Signs Period Temp Pulse Resp BP Sys/Pisano Pulse Ox Last 24 Hr 98.2 F-99.0 F 88-102 20-24 106-144/80-96 97-99 nad no jvd irreg s1s2 no mrg cta nl awake appropriate abd nt nd pos bs no jaundice diaphoresis no le e/c/c CBC, BMP 10/12/18 06:00 10/11/18 05:30 Assessment/Plan 87 yo female with dementia, HTN and AF on NOAC now with anemia Anemia -Undergoing GI evaluation, s/p EGD and foc -Holding Xarelto until ok by GI. Can dc aspirin if she will be on ac. Afib -Chronic AF according to prior cards notes from 03/2018 -On Xarelto at [place] -On Hold for anemia now -Echo with preserved LVEF, severe MR and mild AI (+) troponin -Flat trend without symptoms -Not consistent with ACS and likely represents a demand state (Type II) from anemia
[2018-10-12] MEDS ORDERED: PT OWN MED DRAWER 7, Y5N ONE (11:50)
[2018-10-12] MEDS: SERTRALINE HCL 50 MG TABLET (FP) PO SCH (12:17)
[2018-10-12] MEDS: PANTOPRAZOLE SODIUM 40 MG VIAL IVPUSH SCH (12:17)
[2018-10-12] MEDS: guaiFENesin 200 MG/10 ML 10 ML UNIT-DOSE CUPS PO PRN (12:17)
[2018-10-12] MEDS: BUDESONIDE/FORMETEROL FUMARATE 80/4.5 mcg INHALER IH SCH ×2 (12:19→22:04)
[2018-10-12] MEDS: DEXTROSE 5%-0.45% SALINE 1,000 ML IV SCH (22:04)
[2018-10-12] MEDS: ALBUTEROL SO4 0.083% IH SOL 2.5 MG/3 ML VIAL.NEB. NEB PRN (23:46)
[2018-10-13] MEDS: guaiFENesin 200 MG/10 ML 10 ML UNIT-DOSE CUPS PO PRN ×2 (03:07→17:10)
[2018-10-13 06:49] LABS: HEMATOCRIT 27.1 % (32.4-45.2); HEMOGLOBIN 8.8 GM/dL (10.7-15.3); MCH 24.2 pg (25.7-33.7); MCHC 32.3 g/dl (32.0-36.0); MEAN CELL VOLUME 74.8 fl (80-96); MEAN PLT VOLUME 9.6 fl (7.5-11.1); PLATELET COUNT 196 K/MM3 (134-434); RBC 3.62 M/mm3 (3.60-5.2); RDW 24.6 % (11.6-15.6); WHITE BLOOD COUNT 7.3 K/mm3 (4.0-10.0)
[2018-10-13] MEDS: ALBUTEROL SO4 0.083% IH SOL 2.5 MG/3 ML VIAL.NEB. NEB PRN (06:53)
[2018-10-13] MEDS: PANTOPRAZOLE SODIUM 40 MG VIAL IVPUSH SCH (09:51)
[2018-10-13] MEDS: BUDESONIDE/FORMETEROL FUMARATE 80/4.5 mcg INHALER IH SCH ×2 (09:52→22:05)
[2018-10-13] MEDS: ZINC OXIDE 20% TOPICAL OINTMENT 30 GM TUBE TP SCH ×2 (09:53→23:19)
[2018-10-13] MEDS: SERTRALINE HCL 50 MG TABLET (FP) PO SCH (09:53)
--- NOTE | 2018-10-13 10:28 | PN ---
Progress Note (short form) - Note Progress Note: pt seen/ examined chart reviewed awake/ comfortable Vital Signs Temp 98.9 F 10/13/18 05:00 Pulse 84 10/13/18 05:00 Resp 20 10/13/18 05:00 BP 151/86 10/13/18 05:00 Pulse Ox 97 10/12/18 21:00 Intake & Output 10/12/18 10/12/18 10/13/18 11:59 23:59 11:59 Intake Total 800 300 100 Balance 800 300 100 Intake: IV 600 D5-1/2Ns - 1,000 ml @ 42 500 mls/hr IV ASDIR GEORGE Rx#: [id number] Oral 200 300 100 Other: Voiding Method Incontinent Incontinent # Unmeasured Voids Void 2 2 2 Bowel Movement Yes Yes Active Medications Albuterol Sulfate (Ventolin 0.083% Nebulizer Soln -) 1 amp NEB Q6H PRN PRN Reason: SHORT OF BREATH/WHEEZING Last Admin: 10/13/18 06:53 Dose: 1 amp Budesonide/Formoterol Fumarate (Symbicort 80/4.5mcg -) 2 puff IH BID [facility] Last Admin: 10/13/18 09:52 Dose: 2 puff Guaifenesin (Robitussin -) 10 ml PO Q6H PRN PRN Reason: COUGH Last Admin: 10/13/18 03:07 Dose: 10 ml Dextrose/Sodium Chloride (D5-1/2ns -) 1,000 mls @ 42 mls/hr IV ASDIR GEORGE Last Admin: 10/12/18 22:04 Dose: 42 mls/hr Levofloxacin (Levaquin 250 Mg Premixed Ivpb -) 250 mg in 50 mls @ 50 mls/hr IVPB DAILY [facility]; Protocol Last Admin: 10/13/18 09:51 Dose: 50 mls/hr Multi-Ingredient Ointment (Zinc Oxide) 1 applic TP BID [facility] Last Admin: 10/13/18 09:53 Dose: 1 applic Pantoprazole Sodium (Protonix Iv) 40 mg IVPUSH DAILY [facility] Last Admin: 10/13/18 09:51 Dose: 40 mg Sertraline HCl (Zoloft -) 50 mg PO DAILY [facility] Last Admin: 10/13/18 09:53 Dose: 50 mg CBC, BMP 10/13/18 05:40 10/11/18 05:30 Physical Exam comfortable S1 S2 Irregular Lungs clear Abd- soft, obese, NT no edema PLAN s/p colonoscopy-- 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 Dr Corea discussed with don talley - [phone] No further management till biopsy back as per them- h/h stable repeat cxr today if stable then - d/c long-term today f/u cxr pathology - pending. discussed with adult protective caseworker also today. Pathology -- f/u as out pt Problem List - Problems (1) Anemia requiring transfusions Code(s): D64.9 - ANEMIA, UNSPECIFIED (2) GI (gastrointestinal bleed) Code(s): K92.2 - GASTROINTESTINAL HEMORRHAGE, UNSPECIFIED (3) Chronic atrial fibrillation Code(s): I48.2 - CHRONIC ATRIAL FIBRILLATION (4) Dementia Code(s): F03.90 - UNSPECIFIED DEMENTIA WITHOUT BEHAVIORAL DISTURBANCE (5) Elevated troponin Code(s): R74.8 - ABNORMAL LEVELS OF OTHER SERUM ENZYMES
--- NOTE | 2018-10-13 11:06 | PN ---
GI Progress Note Subjective: No acute events No abdominal pain States feeling well - Objective Vital Signs: Vital Signs Temperature 98.9 F 10/13/18 05:00 Pulse Rate 84 10/13/18 05:00 Respiratory Rate 20 10/13/18 05:00 Blood Pressure 151/86 10/13/18 05:00 O2 Sat by Pulse Oximetry (%) 97 10/12/18 21:00 Constitutional: Calm Eyes: No: Sclera Icterus Cardiovascular: Yes: Regular Rate and Rhythm. No: Murmur Respiratory: Yes: Diminished (at bases bilateral with poor insp effort) Gastrointestinal Inspection: Yes: Scars (+ right paramedian vertical surgical scar). No: Distention ...Auscultate: Yes: Normoactive Bowel Sounds ...Percussion: No: Tympanitic Edema: No (No LE edema) Neurological: Yes: Alert Labs: CBC, BMP 10/13/18 05:40 10/11/18 05:30 INR, PTT INR 1.45 (0.83-1.09) H 10/09/18 05:30 Problem List - Problems (1) Mass of colon Assessment/Plan: In proximal colon distal to ileocolonic anastamosis. ? prior colon cancer history with recurrence Awaiting pathology results Consider onc evaluation / surgical evaluation ? goals of care Code(s): K63.9 - DISEASE OF INTESTINE, UNSPECIFIED
--- NOTE | 2018-10-13 14:30 | DS ---
Physical Examination Vital Signs: Vital Signs Temperature 98.5 F 10/13/18 13:57 Pulse Rate 106 H 10/13/18 13:57 Respiratory Rate 22 H 10/13/18 13:57 Blood Pressure 152/95 10/13/18 13:57 O2 Sat by Pulse Oximetry (%) 97 10/12/18 21:00 Findings/Remarks: see today progress note Labs: CBC, BMP 10/13/18 05:40 10/11/18 05:30 Discharge Summary Reason For Visit: TRANSFUSION-DEPENDENT ANEMIA Current Active Problems Anemia requiring transfusions (Acute) COPD (chronic obstructive pulmonary disease) (Acute) GI (gastrointestinal bleed) (Acute) Mass of colon (Acute) Hospital Course: admitted for anemia/ gi bleed transfused egd - unremarkable colonoscopy-- In proximal colon distal to ileocolonic anastamosis. ? prior colon cancer history with recurrence Awaiting pathology results Also treated with abx for Pneumonia now stable d/c to longterm F/u Pathology report d/c Xarelto protonix bid abx x 5 days f/u in longterm No further intervention till biopsy report comes and then HCP will decide Condition: Stable - Instructions Diet, Activity, Other Instructions: Please return to the emergency department with any new or worsening symptoms or concerns. Please follow up with your primary care physician within 72 hours. Referrals: Yovanny Khan MD [Primary Care Provider] - Disposition: [facility]IOR [facility]ARE FACILITY - Home Medications Comprehensive Discharge Medication List: Ambulatory Orders Albuterol 0.083% Nebulizer Ani [Ventolin 0.083% Nebulizer Soln -] 1 amp NEB PRN 03/16/18 Budesonide/Formeterol Fumarate [SYMBICORT 80/4.5mcg -] 2 puff IH BID 03/16/18 Lisinopril 10 mg PO DAILY 03/16/18 Propylene Glycol [Systane Balance] 2 drop OD HS 03/16/18 Sertraline HCl [Zoloft -] 50 mg PO DAILY 03/16/18 Simvastatin [Zocor -] 20 mg PO HS 03/16/18 Zinc Gluconate [Zinc] 50 mg PO DAILY 03/16/18 Carvedilol [Coreg -] 12.5 mg PO BID 03/18/18 Digoxin 125 mcg PO DAILY 03/18/18 Pantoprazole Sodium [Protonix] 40 mg PO BID #30 tablet. 10/13/18 Zinc Oxide 1 applic TP BID tube 10/13/18 Levaquin 250 mg daily
--- NOTE | 2018-10-13 17:04 | PN ---
Progress Note (short form) - Note Progress Note: Consult Note - abbreviated as patient unable to provide adequate history 87 year old female presents with profound anemia. Upper endoscopy - non revealing Colonoscopy with flat sigmoid polyps - not biopsied and tumorous mass at ileo- colonic anastomosis. Suspicion is that patient has had previous colonic surgery. Patient is unable to provide this history, but does have a RLQ vertical scar (? appendectomy scar) Path is pending PMH dementia AF HBP HPL Allergies -morphine, penicillin, shellfish Meds Current Medications Generic Name Dose Route Start Last Admin Trade Name Freq PRN Reason Stop Dose Admin Albuterol Sulfate 1 amp 10/11/18 14:46 10/13/18 06:53 Ventolin 0.083% Nebulizer Soln - NEB 1 amp Q6H PRN Administration SHORT OF BREATH/WHEEZING Budesonide/Formoterol Fumarate 2 puff 10/11/18 22:00 10/13/18 09:52 Symbicort 80/4.5mcg - IH 2 puff BID GEORGE Administration Guaifenesin 10 ml 10/11/18 14:46 10/13/18 03:07 Robitussin - PO 10 ml Q6H PRN Administration COUGH Levofloxacin 250 mg in 50 mls @ 50 mls/hr 10/12/18 10:00 10/13/18 09:51 Levaquin 250 Mg Premixed Ivpb - IVPB 50 mls/hr DAILY GEORGE Administration Protocol Multi-Ingredient Ointment 1 applic 10/11/18 22:00 10/13/18 09:53 Zinc Oxide TP 1 applic BID GEORGE Administration Pantoprazole Sodium 40 mg 10/12/18 10:00 10/13/18 09:51 Protonix Iv IVPUSH 40 mg DAILY GEORGE Administration Sertraline HCl 50 mg 10/12/18 10:00 10/13/18 09:53 Zoloft - PO 50 mg DAILY GEORGE Administration ROS - not meaningful PE HEENT: ANABEL, EOM Intact,arcus Oropharynx: No thrush, No mucositis, dentures-upper, edentulous -lower Neck: Supple Nodes: Without adenopathy Breasts: Without masses Cor: systolic murmur,RSR Lungs: wheezes Abd: Soft, Normal bowel sounds, No organomegaly RLQ surgical scar Ext:No significant edema Skin: No rashes, Integument intact Impression: CBC, BMP 10/13/18 05:40 10/11/18 05:30 Abnormal Lab Results 10/13/18 05:40 Hgb 8.8 L Hct 27.1 L MCV 74.8 L MCH 24.2 L RDW 24.6 H Agree--> in view of anemia - a/c is discontinued Await path Cardiac/pulmonary input to determine if patient is a surgical candidate . If not, decision easy - no surgery If yes need to speak with HCP to decide about goals of care IS location of mass and assuming this was the source of bleeding and anemia, could this be cauterized to decrease bleeding in the future and then have the patient be treated conservatively? Could this be an option to treat problem , but not eradicate a possible malignancy? Await path .
--- NOTE | 2018-10-13 17:27 | PATH ---
Surgical Pathology Report Patient Name: EUFEMIA BERRIOS [facility]. Rec. #: [id number] /Age/Gender: 1930 (Age: 87) / F Account: [id number] Location: [address] [place] [address] Taken: 10/12/2018 Received: 10/12/2018 Reported: 10/13/2018 Physicians: Tito Cardoso D.O. Specimen(s) Received PROXIMAL COLON MASS Clinical History Anemia, guaiac positive stool Postoperative diagnosis: Diverticulosis, proximal colon mass Final Diagnosis PROXIMAL COLON, MASS, BIOPSY: INVASIVE ADENOCARCINOMA, MODERATELY DIFFERENTIATED. Comment: Findings discussed with Dr. Cardoso. Additional studies for Mismatch repair proteins (MMR) are pending and will be reported as an addendum. Electronically Signed Nori Castro M.D. 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 Additional molecular studies for BRAF pending, findings will be reported separately. Nori Castro M.D. Gross Description Received in formalin, labeled "biopsy proximal colon mass" are 6 almaraz, irregular portions of soft tissue ranging from 0.2-0.4 cm. in greatest dimension. The specimens are submitted in toto in one cassette. /10/12/201810/12/2018
[2018-10-13] MEDS ORDERED: PT OWN MED DRAWER 7, Y5N ONE (22:32)
[2018-10-14 06:50] LABS: BASO % 0.5 % (0-2.0); EOS % 4.3 % (0-4.5); HEMATOCRIT 27.8 % (32.4-45.2); HEMOGLOBIN 8.5 GM/dL (10.7-15.3); LYMPH % 23.3 % (8-40); MCH 23.3 pg (25.7-33.7); MCHC 30.7 g/dl (32.0-36.0); MEAN PLT VOLUME 9.3 fl (7.5-11.1); NEUT % 61.9 % (42.8-82.8); PLATELET COUNT 195 K/MM3 (134-434); RBC 3.66 M/mm3 (3.60-5.2); RDW 25.5 % (11.6-15.6); WHITE BLOOD COUNT 6.8 K/mm3 (4.0-10.0)
[2018-10-14] MEDS: ALBUTEROL SO4 0.083% IH SOL 2.5 MG/3 ML VIAL.NEB. NEB PRN ×4 (07:20→22:25)
[2018-10-14] MEDS: SERTRALINE HCL 50 MG TABLET (FP) PO SCH (09:56)
[2018-10-14] MEDS: PANTOPRAZOLE SODIUM 40 MG VIAL IVPUSH SCH (09:56)
[2018-10-14] MEDS: guaiFENesin 200 MG/10 ML 10 ML UNIT-DOSE CUPS PO PRN ×2 (09:57→23:03)
[2018-10-14] MEDS: BUDESONIDE/FORMETEROL FUMARATE 80/4.5 mcg INHALER IH SCH ×2 (09:58→23:04)
[2018-10-14] MEDS: ZINC OXIDE 20% TOPICAL OINTMENT 30 GM TUBE TP SCH ×2 (09:58→23:04)
--- NOTE | 2018-10-14 11:41 | PN ---
Progress Note (short form) - Note Progress Note: s: appears comfortable, no cp sob palps dizzy Current Medications Generic Name Dose Route Start Last Admin Trade Name Freq PRN Reason Stop Dose Admin Albuterol Sulfate 1 amp 10/11/18 14:46 10/14/18 11:32 Ventolin 0.083% Nebulizer Soln - NEB 1 amp Q6H PRN Administration SHORT OF BREATH/WHEEZING Budesonide/Formoterol Fumarate 2 puff 10/11/18 22:00 10/14/18 09:58 Symbicort 80/4.5mcg - IH 2 puff BID GEORGE Administration Guaifenesin 10 ml 10/11/18 14:46 10/14/18 09:57 Robitussin - PO 10 ml Q6H PRN Administration COUGH Levofloxacin 250 mg in 50 mls @ 50 mls/hr 10/12/18 10:00 10/14/18 09:56 Levaquin 250 Mg Premixed Ivpb - IVPB 50 mls/hr DAILY GEORGE Administration Protocol Multi-Ingredient Ointment 1 applic 10/11/18 22:00 10/14/18 09:58 Zinc Oxide TP 1 applic BID GEORGE Administration Pantoprazole Sodium 40 mg 10/12/18 10:00 10/14/18 09:56 Protonix Iv IVPUSH 40 mg DAILY GEORGE Administration Sertraline HCl 50 mg 10/12/18 10:00 10/14/18 09:56 Zoloft - PO 50 mg DAILY GEORGE Administration Vital Signs Period Temp Pulse Resp BP Sys/Pisano Pulse Ox Last 24 Hr 97.9 F-98.5 F 88-106 16-22 119-154/76-95 97-99 nad no jvd irreg s1s2 no mrg cta nl awake appropriate abd nt nd pos bs no jaundice diaphoresis no le e/c/c CBC, BMP 10/14/18 06:00 10/11/18 05:30 echo 03/2018: lvh, nl lvef, nl rv, mild mr/tr/ar/as Assessment/Plan 87 yo female with dementia, HTN and AF on NOAC now with anemia Anemia -Undergoing GI evaluation, s/p EGD and foc -foc shows colon mass, biopsy results pending -Holding Xarelto given colon mass as possible source of GIB. Aspirin held as well. -no cardiac contraindications to surgery if needed for colon mass Afib -Chronic AF according to prior cards notes from 03/2018 -On Xarelto at [place], on Hold for anemia now -echo unremarkable (+) troponin -Flat trend without symptoms -Not consistent with ACS and likely represents a demand state (Type II) from anemia
[2018-10-14] MEDS ORDERED: LISINOPRIL 10 MG TABLET (FP) PO SCH (12:15)
--- NOTE | 2018-10-14 12:16 | PN ---
Progress Note (short form) - Note Progress Note: no complaints spoke with GI yesterday, pathology results-- invasive adenocarcinoma Pt coughing wheezing+ Vital Signs - 24 hr 10/13/18 10/13/18 10/14/18 13:57 22:00 01:00 Temperature 98.5 F 98.3 F Pulse Rate 106 H 98 H Respiratory 22 H 21 H Rate Blood Pressure 152/95 148/88 O2 Sat by Pulse 97 Oximetry (%) 10/14/18 10/14/18 10/14/18 02:00 06:00 08:01 Temperature 98.2 F 97.9 F 98.0 F Pulse Rate 101 H 103 H 88 Respiratory 16 Rate Blood Pressure 154/90 119/76 150/90 O2 Sat by Pulse Oximetry (%) 10/14/18 09:00 Temperature Pulse Rate Respiratory Rate Blood Pressure O2 Sat by Pulse 99 Oximetry (%) Current Medications Generic Name Dose Route Start Last Admin Trade Name Freq PRN Reason Stop Dose Admin Albuterol Sulfate 1 amp 10/11/18 14:46 10/14/18 11:32 Ventolin 0.083% Nebulizer Soln - NEB 1 amp Q6H PRN Administration SHORT OF BREATH/WHEEZING Budesonide/Formoterol Fumarate 2 puff 10/11/18 22:00 10/14/18 09:58 Symbicort 80/4.5mcg - IH 2 puff BID GEORGE Administration Carvedilol 12.5 mg 10/14/18 12:15 Coreg - PO BID GEORGE Guaifenesin 10 ml 10/11/18 14:46 10/14/18 09:57 Robitussin - PO 10 ml Q6H PRN Administration COUGH Levofloxacin 250 mg in 50 mls @ 50 mls/hr 10/12/18 10:00 10/14/18 09:56 Levaquin 250 Mg Premixed Ivpb - IVPB 50 mls/hr DAILY GEORGE Administration Protocol Lisinopril 10 mg 10/14/18 12:15 Prinivil PO DAILY GEORGE Methylprednisolone Sodium Succinate 40 mg 10/14/18 12:15 Solu-Medrol - IVPUSH Q8H-IV GEORGE Multi-Ingredient Ointment 1 applic 10/11/18 22:00 10/14/18 09:58 Zinc Oxide TP 1 applic BID GEORGE Administration Pantoprazole Sodium 40 mg 10/12/18 10:00 10/14/18 09:56 Protonix Iv IVPUSH 40 mg DAILY GEORGE Administration Sertraline HCl 50 mg 10/12/18 10:00 10/14/18 09:56 Zoloft - PO 50 mg DAILY GEORGE Administration Laboratory Results - last 24 hr 10/07/18 10/14/18 10/14/18 03:28 06:00 06:00 WBC 6.8 RBC 3.66 Hgb 8.5 L Hct 27.8 L MCV 76.0 L MCH 23.3 L MCHC 30.7 L RDW 25.5 H Plt Count 195 MPV 9.3 Absolute Neuts (auto) 4.2 Neutrophils % 61.9 Lymphocytes % 23.3 Monocytes % 10.0 Eosinophils % 4.3 Basophils % 0.5 Nucleated RBC % 2 H Ferritin 36.6 Vitamin B12 682 Serum Folate 13 TSH 2.19 Blood Type O POSITIVE Antibody Screen Negative Crossmatch See Detail No pallor S1 S2 Irregular Lungs clear Abd- soft, obese, NT no edema PLAN s/p colonoscopy--has adenocarcinoma Spoke with don talley - [phone]- court appointed guardian- aware of pathology results-- she will speak with family with regards to further management Oncology phuong noted will consult Surgeon to see if she's a surgical candidate for now , will monitor for bleeding continue with current meds added antihypertensives Start Solumedrol ,nebs-- pt wheezing today Problem List - Problems (1) Anemia requiring transfusions Code(s): D64.9 - ANEMIA, UNSPECIFIED (2) COPD (chronic obstructive pulmonary disease) Code(s): J44.9 - CHRONIC OBSTRUCTIVE PULMONARY DISEASE, UNSPECIFIED (3) GI (gastrointestinal bleed) Code(s): K92.2 - GASTROINTESTINAL HEMORRHAGE, UNSPECIFIED (4) Chronic atrial fibrillation Code(s): I48.2 - CHRONIC ATRIAL FIBRILLATION (5) Dementia Code(s): F03.90 - UNSPECIFIED DEMENTIA WITHOUT BEHAVIORAL DISTURBANCE (6) Elevated troponin Code(s): R74.8 - ABNORMAL LEVELS OF OTHER SERUM ENZYMES
[2018-10-14] MEDS: CARVEDILOL 12.5 MG TABLET (FP) PO SCH ×2 (12:38→23:03)
[2018-10-14] MEDS: methylPREDNISolone NA SUCC 40 MG/1 ML VIAL IVPUSH SCH ×2 (12:38→16:59)
--- NOTE | 2018-10-14 15:00 | CONSULT ---
Consult Consult Specialty:: Surgery: Referred by:: . Reason for Consultation:: Carcinoma of transverse colon. - History of Present Illness Chief Complaint: Patient is admitted from [facility] for work up of anemia, and found to have an ulcerated lesion, at the prior anastamotic site inn the proximal transverse colon. The pathology shows adenocarcinoma. - History Source History Provided By: Medical Record Limitations to Obtaining History: Dementia - Past Medical History [employer] GUIDE: Yes: Alzheimer's, Dementia Cardio/Vascular: Yes: AFIB, Mitral Insufficiency Pulmonary: Yes: COPD - Past Surgical History Past Surgical History: Yes: Colectomy - Alcohol/Substance Use Hx Alcohol Use: No History of Substance Use: reports: None - Smoking History Smoking history: Never smoked Have you smoked in the past 12 months: No - Social History ADL: Support Services History of Recent Travel: No Home Medications - Allergies Allergies/Adverse Reactions: Allergies Allergy/AdvReac Type Severity Reaction Status Date / Time morphine Allergy Verified 10/07/18 02:23 Penicillins Allergy Verified 10/07/18 02:23 shellfish derived Allergy Verified 10/07/18 02:23 - Home Medications Home Medications: Ambulatory Orders Albuterol 0.083% Nebulizer Ani [Ventolin 0.083% Nebulizer Soln -] 1 amp NEB PRN 03/16/18 Budesonide/Formeterol Fumarate [SYMBICORT 80/4.5mcg -] 2 puff IH BID 03/16/18 Lisinopril 10 mg PO DAILY 03/16/18 Propylene Glycol [Systane Balance] 2 drop OD HS 03/16/18 Sertraline HCl [Zoloft -] 50 mg PO DAILY 03/16/18 Simvastatin [Zocor -] 20 mg PO HS 03/16/18 Zinc Gluconate [Zinc] 50 mg PO DAILY 03/16/18 Carvedilol [Coreg -] 12.5 mg PO BID 03/18/18 Digoxin 125 mcg PO DAILY 03/18/18 Pantoprazole Sodium [Protonix] 40 mg PO BID #30 tablet. 10/13/18 Zinc Oxide 1 applic TP BID tube 10/13/18 levoFLOXacin [Levaquin -] 250 mg PO DAILY #5 tablet 10/13/18 Review of Systems - Review of Systems Constitutional: reports: No Symptoms Physical Exam Vital Signs: Vital Signs Temperature 98.0 F 10/14/18 08:01 Pulse Rate 88 10/14/18 08:01 Respiratory Rate 16 10/14/18 08:01 Blood Pressure 150/90 10/14/18 08:01 O2 Sat by Pulse Oximetry (%) 99 10/14/18 09:00 Gastrointestinal: Yes: Soft Labs: CBC, BMP 10/14/18 06:00 10/11/18 05:30 Problem List - Problems (1) Adenocarcinoma of transverse colon Code(s): C18.4 - MALIGNANT NEOPLASM OF TRANSVERSE COLON (2) Anemia requiring transfusions Code(s): D64.9 - ANEMIA, UNSPECIFIED (3) Chronic atrial fibrillation Code(s): I48.2 - CHRONIC ATRIAL FIBRILLATION (4) Dementia Code(s): F03.90 - UNSPECIFIED DEMENTIA WITHOUT BEHAVIORAL DISTURBANCE Assessment/Plan Impression : Carcinoma of transverse colon , ? anastamotic recurrence. Obtain old history if possible. Metastatic workup, with tumor markers. Pathology report noted Obtain abdominal CT scan. Surgery , colectomy if only local recurrence. Obtain old reports if possible.
[2018-10-14 15:16] LABS: ANISOCYTOSIS 2+; MACROCYTOSIS 0; PLATELET ESTIMATE NORMAL
--- NOTE | 2018-10-14 20:10 | PN ---
Progress Note, Physician Chief Complaint: anemia History of Present Illness: No complaints. No new events. - Current Medication List Current Medications: Active Medications Albuterol Sulfate (Ventolin 0.083% Nebulizer Soln -) 1 amp NEB Q6H PRN PRN Reason: SHORT OF BREATH/WHEEZING Last Admin: 10/14/18 16:30 Dose: 1 amp Budesonide/Formoterol Fumarate (Symbicort 80/4.5mcg -) 2 puff IH BID [facility] Last Admin: 10/14/18 09:58 Dose: 2 puff Carvedilol (Coreg -) 12.5 mg PO BID [facility] Last Admin: 10/14/18 12:38 Dose: 12.5 mg Guaifenesin (Robitussin -) 10 ml PO Q6H PRN PRN Reason: COUGH Last Admin: 10/14/18 09:57 Dose: 10 ml Levofloxacin (Levaquin 250 Mg Premixed Ivpb -) 250 mg in 50 mls @ 50 mls/hr IVPB DAILY [facility]; Protocol Last Admin: 10/14/18 09:56 Dose: 50 mls/hr Lisinopril (Prinivil) 10 mg PO DAILY [facility] Last Admin: 10/14/18 12:38 Dose: 10 mg Methylprednisolone Sodium Succinate (Solu-Medrol -) 40 mg IVPUSH Q8H-IV [facility] Last Admin: 10/14/18 16:59 Dose: 40 mg Multi-Ingredient Ointment (Zinc Oxide) 1 applic TP BID [facility] Last Admin: 10/14/18 09:58 Dose: 1 applic Pantoprazole Sodium (Protonix Iv) 40 mg IVPUSH DAILY [facility] Last Admin: 10/14/18 09:56 Dose: 40 mg Sertraline HCl (Zoloft -) 50 mg PO DAILY [facility] Last Admin: 10/14/18 09:56 Dose: 50 mg - Objective Vital Signs: Vital Signs Temperature 98.4 F 10/14/18 18:00 Pulse Rate 102 H 10/14/18 18:00 Respiratory Rate 16 10/14/18 08:01 Blood Pressure 138/88 10/14/18 18:00 O2 Sat by Pulse Oximetry (%) 99 10/14/18 09:00 Constitutional: Yes: Calm Eyes: Yes: Conjunctiva Clear Cardiovascular: Yes: Regular Rate and Rhythm Respiratory: Yes: Regular, CTA Bilaterally Gastrointestinal: Yes: Normal Bowel Sounds, Soft Extremities: Yes: WNL Edema: No Labs: CBC, BMP 10/14/18 06:00 10/11/18 05:30 INR, PTT INR 1.45 (0.83-1.09) H 10/09/18 05:30 Assessment/Plan 87F, [place] resident with Afib on Xarelto, dementia, COPD admitted with microcytic anemia (ferritin 36). AC stopped. Responded well to transfusion. Found to have a mass at ileo-colonic anastomosis (?previous colonic surgery) on colonoscopy, path with moderately differentiated adnocarcinoma. Agree with evaluation for distant disease -- CT abd/pel/chest. Possible resection if local and if consistent with GOC. Would start on Feosol 325 mg daily.
[2018-10-15] MEDS: methylPREDNISolone NA SUCC 40 MG/1 ML VIAL IVPUSH SCH ×4 (03:54→20:11)
[2018-10-15 06:32] LABS: HEMOGLOBIN 8.4 GM/dL (10.7-15.3); MCH 23.5 pg (25.7-33.7); MCHC 31.3 g/dl (32.0-36.0); MEAN CELL VOLUME 75.2 fl (80-96); MEAN PLT VOLUME 9.2 fl (7.5-11.1); PLATELET COUNT 172 K/MM3 (134-434); RBC 3.59 M/mm3 (3.60-5.2); RDW 25.9 % (11.6-15.6); WHITE BLOOD COUNT 3.3 K/mm3 (4.0-10.0)
[2018-10-15 06:59] LABS: ALBUMIN 2.6 g/dl (3.4-5.0); ALK PHOS 67 U/L (45-117); ANION GAP 6 MMOL/L (8-16); BILIRUBIN,TOTAL 1.1 mg/dL (0.2-1); BLOOD UREA NITROGEN 24 mg/dL (7-18); CALCIUM 8.4 mg/dL (8.5-10.1); CHLORIDE 112 mmol/L (98-107); CO2 26 mmol/L (21-32); CREATININE 1.4 mg/dL (0.55-1.3); GLUCOSE,RANDOM 129 mg/dL (74-106); POTASSIUM 4.1 mmol/L (3.5-5.1); SGOT/AST 14 U/L (15-37); SGPT/ALT 13 U/L (13-61); SODIUM 144 mmol/L (136-145); TOT PROT 7.1 g/dl (6.4-8.2)
[2018-10-15] MEDS: ALBUTEROL SO4 0.083% IH SOL 2.5 MG/3 ML VIAL.NEB. NEB PRN ×2 (07:10→11:39)
--- NOTE | 2018-10-15 09:13 | PN ---
Progress Note (short form) - Note Progress Note: no complaints spoke with GI yesterday, pathology results-- invasive adenocarcinoma Pt better today no SOB not much coughing either Vital Signs - 24 hr 10/14/18 10/14/18 10/15/18 21:00 23:13 01:55 Temperature 98.5 F 97.9 F Pulse Rate 82 76 Respiratory 19 19 Rate Blood Pressure 137/79 131/89 O2 Sat by Pulse 91 L Oximetry (%) 10/15/18 10/15/18 10/15/18 06:00 08:37 09:00 Temperature 97.4 F L 98.0 F Pulse Rate 61 98 H Respiratory 15 Rate Blood Pressure 133/82 157/90 O2 Sat by Pulse 99 Oximetry (%) 10/15/18 10/15/18 15:28 19:00 Temperature 97.3 F L 97.6 F Pulse Rate 59 L 58 L Respiratory 18 Rate Blood Pressure 116/68 125/86 O2 Sat by Pulse Oximetry (%) Current Medications Generic Name Dose Route Start Last Admin Trade Name Freq PRN Reason Stop Dose Admin Albuterol Sulfate 1 amp 10/11/18 14:46 10/15/18 11:39 Ventolin 0.083% Nebulizer Soln - NEB 1 amp Q6H PRN Administration SHORT OF BREATH/WHEEZING Budesonide/Formoterol Fumarate 2 puff 10/11/18 22:00 10/15/18 10:08 Symbicort 80/4.5mcg - IH 2 puff BID [facility]ORGE Administration Carvedilol 12.5 mg 10/14/18 12:15 10/15/18 10:07 Coreg - PO 12.5 mg BID GEORGE Administration Guaifenesin 10 ml 10/11/18 14:46 10/15/18 18:17 Robitussin - PO 10 ml Q6H PRN Administration COUGH Levofloxacin 250 mg in 50 mls @ 50 mls/hr 10/12/18 10:00 10/15/18 10:03 Levaquin 250 Mg Premixed Ivpb - IVPB 50 mls/hr DAILY [facility]ORGE Administration Protocol Sodium Chloride 1,000 mls @ 83 mls/hr 10/15/18 09:30 10/15/18 10:06 1/2 Normal Saline IV 83 mls/hr ASDIR GEORGE Administration Lisinopril 5 mg 10/15/18 09:26 10/15/18 10:06 Prinivil PO 5 mg DAILY [facility]GE Administration Methylprednisolone Sodium Succinate 40 mg 10/14/18 12:15 10/15/18 17:10 Solu-Medrol - IVPUSH 40 mg Q8H-IV GEORGE Administration Multi-Ingredient Ointment 1 applic 10/11/18 22:00 10/15/18 10:07 Zinc Oxide TP 1 applic BID [facility]ORGE Administration Pantoprazole Sodium 40 mg 10/12/18 10:00 10/15/18 10:05 Protonix Iv IVPUSH 40 mg DAILY [facility] Administration Sertraline HCl 50 mg 10/12/18 10:00 10/15/18 10:07 Zoloft - PO 50 mg DAILY [facility]OR[facility] Administration Laboratory Results - last 24 hr 10/15/18 10/15/18 10/15/18 05:15 05:15 05:44 WBC 3.3 L RBC 3.59 L Hgb 8.4 L Hct 27.0 L MCV 75.2 L MCH 23.5 L MCHC 31.3 L RDW 25.9 H Plt Count 172 MPV 9.2 Sodium 144 Potassium 4.1 Chloride 112 H Carbon Dioxide 26 Anion Gap 6 L BUN 24 H Creatinine 1.4 H Creat Clearance w eGFR 35.74 POC Glucometer 138 Random Glucose 129 H Calcium 8.4 L Total Bilirubin 1.1 H AST 14 L ALT 13 Alkaline Phosphatase 67 Total Protein 7.1 Albumin 2.6 L No pallor S1 S2 Irregular Lungs clear Abd- soft, obese, NT no edema PLAN s/p colonoscopy--has adenocarcinoma Spoke with don talley - [phone]- court appointed guardian- aware of pathology results-- she will speak with family with regards to further management Oncology eval noted will consult Surgeon to see if she's a surgical candidate-- surgical eval noted Ct chest/\/abd/pelvis ordered noted worsening renal function-- start iv fluids taper solumedrol for now , will monitor for bleeding continue with current meds Problem List - Problems (1) Anemia requiring transfusions Code(s): D64.9 - ANEMIA, UNSPECIFIED (2) COPD (chronic obstructive pulmonary disease) Code(s): J44.9 - CHRONIC OBSTRUCTIVE PULMONARY DISEASE, UNSPECIFIED (3) GI (gastrointestinal bleed) Code(s): K92.2 - GASTROINTESTINAL HEMORRHAGE, UNSPECIFIED (4) Chronic atrial fibrillation Code(s): I48.2 - CHRONIC ATRIAL FIBRILLATION (5) Dementia Code(s): F03.90 - UNSPECIFIED DEMENTIA WITHOUT BEHAVIORAL DISTURBANCE (6) Elevated troponin Code(s): R74.8 - ABNORMAL LEVELS OF OTHER SERUM ENZYMES
[2018-10-15] MEDS ORDERED: PT OWN MED DRAWER 7, Y5N ONE (09:58)
[2018-10-15] MEDS: PANTOPRAZOLE SODIUM 40 MG VIAL IVPUSH SCH (10:05)
[2018-10-15] MEDS: SODIUM CHLORIDE 0.45% 1,000 ML IV SCH ×2 (10:06→21:19)
[2018-10-15] MEDS: LISINOPRIL 5 MG TABLET (FP) PO SCH (10:06)
[2018-10-15] MEDS: SERTRALINE HCL 50 MG TABLET (FP) PO SCH (10:07)
[2018-10-15] MEDS: ZINC OXIDE 20% TOPICAL OINTMENT 30 GM TUBE TP SCH ×2 (10:07→21:19)
[2018-10-15] MEDS: CARVEDILOL 12.5 MG TABLET (FP) PO SCH ×2 (10:07→21:19)
[2018-10-15] MEDS: BUDESONIDE/FORMETEROL FUMARATE 80/4.5 mcg INHALER IH SCH ×2 (10:08→21:19)
--- NOTE | 2018-10-15 11:29 | PN ---
Progress Note (short form) - Note Progress Note: s: no cp sob palps dizzy Current Medications Generic Name Dose Route Start Last Admin Trade Name Freq PRN Reason Stop Dose Admin Albuterol Sulfate 1 amp 10/11/18 14:46 10/15/18 07:10 Ventolin 0.083% Nebulizer Soln - NEB 1 amp Q6H PRN Administration SHORT OF BREATH/WHEEZING Budesonide/Formoterol Fumarate 2 puff 10/11/18 22:00 10/15/18 10:08 Symbicort 80/4.5mcg - IH 2 puff BID GEORGE Administration Carvedilol 12.5 mg 10/14/18 12:15 10/15/18 10:07 Coreg - PO 12.5 mg BID GEORGE Administration Guaifenesin 10 ml 10/11/18 14:46 10/14/18 23:03 Robitussin - PO 10 ml Q6H PRN Administration COUGH Levofloxacin 250 mg in 50 mls @ 50 mls/hr 10/12/18 10:00 10/15/18 10:03 Levaquin 250 Mg Premixed Ivpb - IVPB 50 mls/hr DAILY GEORGE Administration Protocol Sodium Chloride 1,000 mls @ 83 mls/hr 10/15/18 09:30 10/15/18 10:06 1/2 Normal Saline IV 83 mls/hr ASDIR GEORGE Administration Lisinopril 5 mg 10/15/18 09:26 10/15/18 10:06 Prinivil PO 5 mg DAILY GEORGE Administration Methylprednisolone Sodium Succinate 40 mg 10/14/18 12:15 10/15/18 10:05 Solu-Medrol - IVPUSH 40 mg Q8H-IV GEORGE Administration Multi-Ingredient Ointment 1 applic 10/11/18 22:00 10/15/18 10:07 Zinc Oxide TP 1 applic BID GEORGE Administration Pantoprazole Sodium 40 mg 10/12/18 10:00 10/15/18 10:05 Protonix Iv IVPUSH 40 mg DAILY GEORGE Administration Sertraline HCl 50 mg 10/12/18 10:00 10/15/18 10:07 Zoloft - PO 50 mg DAILY GEORGE Administration Vital Signs Period Temp Pulse Resp BP Sys/Pisano Pulse Ox Last 24 Hr 97.4 F-98.5 F 61-105 - 131-157/79-96 91-99 nad no jvd irreg s1s2 no mrg cta nl awake appropriate abd nt nd pos bs no jaundice diaphoresis no le e/c/c CBC, BMP 10/15/18 05:15 10/15/18 05:15 echo 03/2018: lvh, nl lvef, nl rv, mild mr/tr/ar/as Assessment/Plan 87 yo female with dementia, HTN and AF on NOAC now with anemia Anemia -Undergoing GI evaluation, s/p EGD and foc -foc shows colon mass/cancer -Holding Xarelto given colon mass as possible source of GIB. Aspirin held as well. -no cardiac contraindications to surgery if needed for colon mass Afib -Chronic AF according to prior cards notes from 03/2018 -On Xarelto at DC, on Hold for anemia now -echo unremarkable (+) troponin -Flat trend without symptoms -Not consistent with ACS and likely represents a demand state (Type II) from anemia
[2018-10-15] MEDS: guaiFENesin 200 MG/10 ML 10 ML UNIT-DOSE CUPS PO PRN (18:17)
[2018-10-16] MEDS: guaiFENesin 200 MG/10 ML 10 ML UNIT-DOSE CUPS PO PRN ×2 (03:12→09:35)
[2018-10-16 06:49] LABS: HEMATOCRIT 27.5 % (32.4-45.2); HEMOGLOBIN 8.5 GM/dL (10.7-15.3); MCH 23.5 pg (25.7-33.7); MEAN CELL VOLUME 75.8 fl (80-96); MEAN PLT VOLUME 9.3 fl (7.5-11.1); PLATELET COUNT 185 K/MM3 (134-434); RBC 3.62 M/mm3 (3.60-5.2); RDW 26.4 % (11.6-15.6); WHITE BLOOD COUNT 5.1 K/mm3 (4.0-10.0)
[2018-10-16] MEDS: ALBUTEROL SO4 0.083% IH SOL 2.5 MG/3 ML VIAL.NEB. NEB PRN ×2 (07:15→13:20)
[2018-10-16 07:26] LABS: ANION GAP 7 MMOL/L (8-16); BLOOD UREA NITROGEN 38 mg/dL (7-18); CALCIUM 8.1 mg/dL (8.5-10.1); CHLORIDE 109 mmol/L (98-107); CO2 25 mmol/L (21-32); CREATININE 1.6 mg/dL (0.55-1.3); GLUCOSE,RANDOM 124 mg/dL (74-106); POTASSIUM 4.1 mmol/L (3.5-5.1); SODIUM 141 mmol/L (136-145)
[2018-10-16] MEDS: methylPREDNISolone NA SUCC 40 MG/1 ML VIAL IVPUSH SCH (08:49)
[2018-10-16] MEDS: PANTOPRAZOLE SODIUM 40 MG VIAL IVPUSH SCH (09:35)
[2018-10-16] MEDS: CARVEDILOL 12.5 MG TABLET (FP) PO SCH (09:35)
[2018-10-16] MEDS: SERTRALINE HCL 50 MG TABLET (FP) PO SCH (09:35)
[2018-10-16] MEDS: LISINOPRIL 5 MG TABLET (FP) PO SCH (09:35)
[2018-10-16] MEDS: SODIUM CHLORIDE 0.45% 1,000 ML IV SCH (09:36)
[2018-10-16] MEDS: ZINC OXIDE 20% TOPICAL OINTMENT 30 GM TUBE TP SCH (09:45)
[2018-10-16] MEDS: BUDESONIDE/FORMETEROL FUMARATE 80/4.5 mcg INHALER IH SCH (09:46)
--- NOTE | 2018-10-16 11:48 | PN ---
Progress Note, Physician - Current Medication List Current Medications: Active Medications Albuterol Sulfate (Ventolin 0.083% Nebulizer Soln -) 1 amp NEB Q6H PRN PRN Reason: SHORT OF BREATH/WHEEZING Last Admin: 10/16/18 07:15 Dose: 1 amp Budesonide/Formoterol Fumarate (Symbicort 80/4.5mcg -) 2 puff IH BID [facility] Last Admin: 10/16/18 09:46 Dose: 2 puff Carvedilol (Coreg -) 12.5 mg PO BID [facility] Last Admin: 10/16/18 09:35 Dose: 12.5 mg Guaifenesin (Robitussin -) 10 ml PO Q6H PRN PRN Reason: COUGH Last Admin: 10/16/18 09:35 Dose: 10 ml Levofloxacin (Levaquin 250 Mg Premixed Ivpb -) 250 mg in 50 mls @ 50 mls/hr IVPB DAILY [facility]; Protocol Last Admin: 10/16/18 09:35 Dose: 50 mls/hr Sodium Chloride (1/2 Normal Saline) 1,000 mls @ 83 mls/hr IV ASDIR [facility] Last Admin: 10/16/18 09:36 Dose: 83 mls/hr Lisinopril (Prinivil) 5 mg PO DAILY [facility] Last Admin: 10/16/18 09:35 Dose: 5 mg Methylprednisolone Sodium Succinate (Solu-Medrol -) 40 mg IVPUSH Q12H [facility] Last Admin: 10/16/18 08:49 Dose: 40 mg Multi-Ingredient Ointment (Zinc Oxide) 1 applic TP BID [facility] Last Admin: 10/16/18 09:45 Dose: 1 applic Pantoprazole Sodium (Protonix Iv) 40 mg IVPUSH DAILY [facility] Last Admin: 10/16/18 09:35 Dose: 40 mg Sertraline HCl (Zoloft -) 50 mg PO DAILY [facility] Last Admin: 10/16/18 09:35 Dose: 50 mg - Objective Vital Signs: Vital Signs Temperature 97.4 F L 10/16/18 08:34 Pulse Rate 72 10/16/18 08:34 Respiratory Rate 20 10/16/18 08:34 Blood Pressure 156/93 10/16/18 08:34 O2 Sat by Pulse Oximetry (%) 97 10/16/18 08:35 Labs: CBC, BMP 10/16/18 06:15 10/16/18 06:15 INR, PTT INR 1.45 (0.83-1.09) H 10/09/18 05:30 Problem List - Problems (1) Adenocarcinoma of transverse colon Code(s): C18.4 - MALIGNANT NEOPLASM OF TRANSVERSE COLON (2) Anemia requiring transfusions Code(s): D64.9 - ANEMIA, UNSPECIFIED (3) Chronic atrial fibrillation Code(s): I48.2 - CHRONIC ATRIAL FIBRILLATION (4) Dementia Code(s): F03.90 - UNSPECIFIED DEMENTIA WITHOUT BEHAVIORAL DISTURBANCE Assessment/Plan I have contacted the agency responsible for coordinating her care , court appointed legal guardian at [phone], Fozia Mccauley, made her aware of the situation. She has localised tumor at the anastamotic site, on colonoscopy. can consider re-resection if it is confined to the anastamotic site. She is off the xeralto. Anemia being corrected. Her Creatinine is elevated , and CT scan with IV contrast cannot be done. Attempt being made to give her oral contrast. She might be discharged back to the residential.
--- NOTE | 2018-10-16 12:07 | PN ---
Progress Note (short form) - Note Progress Note: pt seen/ examined today chart reviewed awake/ comfortable Vital Signs Temp 97.4 F L 10/16/18 08:34 Pulse 72 10/16/18 08:34 Resp 20 10/16/18 08:34 BP 156/93 10/16/18 08:34 Pulse Ox 97 10/16/18 08:35 Intake & Output 10/15/18 10/16/18 10/16/18 23:59 11:59 23:59 Intake Total 1090 1088 Balance 1090 1088 Intake: IV 830 913 1/2 Normal Saline 1,000 830 913 ml @ 83 mls/hr IV ASDIR GEORGE Rx#:[id number] Oral 200 175 Oral Supplement 60 Other: Voiding Method Incontinent # Unmeasured Voids Void 2 1 Bowel Movement Yes No # Bowel Movements 1 Active Medications Albuterol Sulfate (Ventolin 0.083% Nebulizer Soln -) 1 amp NEB Q6H PRN PRN Reason: SHORT OF BREATH/WHEEZING Last Admin: 10/16/18 07:15 Dose: 1 amp Budesonide/Formoterol Fumarate (Symbicort 80/4.5mcg -) 2 puff IH BID [facility] Last Admin: 10/16/18 09:46 Dose: 2 puff Carvedilol (Coreg -) 12.5 mg PO BID [facility] Last Admin: 10/16/18 09:35 Dose: 12.5 mg Guaifenesin (Robitussin -) 10 ml PO Q6H PRN PRN Reason: COUGH Last Admin: 10/16/18 09:35 Dose: 10 ml Levofloxacin (Levaquin 250 Mg Premixed Ivpb -) 250 mg in 50 mls @ 50 mls/hr IVPB DAILY [facility]; Protocol Last Admin: 10/16/18 09:35 Dose: 50 mls/hr Sodium Chloride (1/2 Normal Saline) 1,000 mls @ 83 mls/hr IV ASDIR [facility] Last Admin: 10/16/18 09:36 Dose: 83 mls/hr Lisinopril (Prinivil) 5 mg PO DAILY [facility] Last Admin: 10/16/18 09:35 Dose: 5 mg Methylprednisolone Sodium Succinate (Solu-Medrol -) 40 mg IVPUSH Q12H [facility] Last Admin: 10/16/18 08:49 Dose: 40 mg Multi-Ingredient Ointment (Zinc Oxide) 1 applic TP BID [facility] Last Admin: 10/16/18 09:45 Dose: 1 applic Pantoprazole Sodium (Protonix Iv) 40 mg IVPUSH DAILY [facility] Last Admin: 10/16/18 09:35 Dose: 40 mg Sertraline HCl (Zoloft -) 50 mg PO DAILY [facility] Last Admin: 10/16/18 09:35 Dose: 50 mg CBC, BMP 10/16/18 06:15 10/16/18 06:15 Physical exam comfortable S1 S2 Irregular Lungs clear Abd- soft, obese, NT no edema PLAN s/p colonoscopy--has adenocarcinoma. I spoke to , court appointed legal guardian at [phone], Stephenconnor Mccauley today with Dr. Goodrich. She clearly tells me that they are not interested in surgery/ further treatment at this time-- till they have second opinion from pts previous pmd. She is requesting me send pt back to intermediate today Dot want to do even ct scan at this time Discussed with also will send pt back to intermediate d/c steroids/ abx see detailed d/c summary 10/13/18. Discussed with nursing staff also Problem List - Problems (1) Anemia requiring transfusions Code(s): D64.9 - ANEMIA, UNSPECIFIED (2) GI (gastrointestinal bleed) Code(s): K92.2 - GASTROINTESTINAL HEMORRHAGE, UNSPECIFIED (3) Chronic atrial fibrillation Code(s): I48.2 - CHRONIC ATRIAL FIBRILLATION (4) Dementia Code(s): F03.90 - UNSPECIFIED DEMENTIA WITHOUT BEHAVIORAL DISTURBANCE (5) Elevated troponin Code(s): R74.8 - ABNORMAL LEVELS OF OTHER SERUM ENZYMES
[2018-10-16 15:33] VITALS: BP 139/86; PULSE 54; TEMP 97.4
== END 2018-10-16 16:07 | DRG 375 ==
LOC: JER 01:37 → JERBED 04:04 → J4W 09:40 → J6S 10-11 15:01
PROVIDERS: ADMIT Internal Medicine; ATTEND Internal Medicine
PROC: 30233N1 Transfusion of Nonautologous Red Blood Cells into Peripheral Vein, Percutaneous Approach (ICD-10-PCS; 2018-10-07)
PROC: 0DBN8ZX Excision of Sigmoid Colon, Via Natural or Artificial Opening Endoscopic, Diagnostic (ICD-10-PCS; 2018-10-12)
PROC: 0DBB8ZX Excision of Ileum, Via Natural or Artificial Opening Endoscopic, Diagnostic (ICD-10-PCS; principal; 2018-10-12 09:45)
DX: C18.4 Malignant neoplasm of transverse colon (principal); K63.3 Ulcer of intestine; I48.91 Unspecified atrial fibrillation; I10 Essential (primary) hypertension; J44.9 Chronic obstructive pulmonary disease, unspecified; G30.9 Alzheimer's disease, unspecified; F02.80 Dementia in other diseases classified elsewhere, unspecified severity, without behavioral disturbance, psychotic disturbance, mood disturbance, and anxiety; E78.5 Hyperlipidemia, unspecified; I34.0 Nonrheumatic mitral (valve) insufficiency; I48.2 Chronic atrial fibrillation; R74.8 Abnormal levels of other serum enzymes; E66.9 Obesity, unspecified; Z68.32 Body mass index [BMI] 32.0-32.9, adult; K63.5 Polyp of colon; K57.90 Diverticulosis of intestine, part unspecified, without perforation or abscess without bleeding; K64.8 Other hemorrhoids; D50.9 Iron deficiency anemia, unspecified; Z88.0 Allergy status to penicillin
CPT/HCPCS: 36415; 36430; 71045-TC-FY; 80048; 80053; 82272; 82550; 82607; 82728; 82746; 82962; 83605; 84443; 84484; 85025; 85027; 85610; 86850; 86900; 86901; 86922; 88305-TC; 93005; 93010; 94640; 99285-25; J7030; P9038; P9058

== ENCOUNTER 2019-04-12 11:01 | Inpatient (IN) | payer OTHER | END 2019-04-13 17:35 | LOC: JER 11:01 → JERBED 15:14 → J5S 18:47 ==

== ENCOUNTER 2019-05-27 08:19 | Inpatient (IN) | payer OTHER ==
--- NOTE | 2019-05-27 08:33 | PDOC ---
Attending Attestation - Resident Resident Name: GloriaAlberto tafoya - HPI HPI: 05/27/19 09:48 Pt presents to the ED after sent in for melana that started at 10 am. History of colon CA. No vomiting. - Physicial Exam PE: 05/27/19 09:49 Agree with resident exam. Patient has bright red blood per rectum. diffuse abdominal tenderness. borderline blood pressure. 05/27/19 09:49 - Medical Decision Making 05/27/19 09:50 Pt presents to the ED with apparent GI bleed. Borderline BP. HGB down 0.5 g. Will admit to medicine, continue to monitor with serial hgb, transfuse if necessary. Given diffuse abdominal tenderness, will check CT to rule out intraabdominal pathology. 05/27/19 09:50
--- NOTE | 2019-05-27 08:54 | PDOC ---
History of Present Illness - General Chief Complaint: Pain Stated Complaint: ABDOMINAL PAIN Time Seen by Provider: 05/27/19 08:33 - History of Present Illness Initial Comments: The pt is an 88F w/ a history of colon cancer, chronic afib (no AC), COPD (O2 PRN) who presents for evaluation of reported melena from [facility] today. The pt is unable to provide a history but appears uncomfortable. She denies any overt complaint at this time. 05/27/19 08:49 Past History - Past Medical History Allergies/Adverse Reactions: Allergies Allergy/AdvReac Type Severity Reaction Status Date / Time morphine Allergy Verified 10/07/18 02:23 Penicillins Allergy Verified 10/07/18 02:23 shellfish derived Allergy Verified 10/07/18 02:23 Home Medications: Ambulatory Orders Albuterol 0.083% Nebulizer Ani [Ventolin 0.083% Nebulizer Soln -] 1 amp NEB PRN 03/16/18 Budesonide/Formeterol Fumarate [SYMBICORT 80/4.5mcg -] 2 puff IH BID 03/16/18 Lisinopril 10 mg PO DAILY 03/16/18 Sertraline HCl [Zoloft -] 50 mg PO DAILY 03/16/18 Simvastatin [Zocor -] 10 mg PO HS 03/16/18 Zinc Gluconate [Zinc] 50 mg PO DAILY 03/16/18 Carvedilol [Coreg -] 12.5 mg PO BID 03/18/18 Pantoprazole Sodium [Protonix] 40 mg PO BID #30 tablet. 10/13/18 Zinc Oxide 1 applic TP BID tube 10/13/18 Ascorbic Acid [Vitamin C -] 500 mg PO BID tablet 04/13/19 Magnesium Hydroxide [Milk of Magnesia] 30 ml PO ASDIR PRN 05/27/19 Polyethylene Glycol 3350 [Miralax (For Daily Use) -] 17 gm PO DAILY 05/27/19 Cardiac Disorders: Yes (ASHD, AFIB) COPD: No Dementia: Yes HTN: Yes Hypercholesterolemia: Yes Psychiatric Problems: Yes (Major Depressive Disorder, Bipolar) - Immunization History Immunization Up to Date: Yes - Psycho Social/Smoking Cessation Hx Smoking History: Unknown if ever smoked Have you smoked in the past 12 months: No Hx Alcohol Use: No Drug/Substance Use Hx: No Review of Systems - Review of Systems Able to Perform ROS?: No (2/2 medical condition) *Physical Exam - Vital Signs Last Vital Signs Temp Pulse Resp BP Pulse Ox 98.9 F 96 H 18 106/73 98 05/27/19 08:20 05/27/19 08:20 05/27/19 08:20 05/27/19 08:20 05/27/19 08:20 - Physical Exam Comments: GENERAL: Awake, oriented to person, in no acute distress HEAD: No signs of trauma, normocephalic, atraumatic EYES: PERRLA, EOMI, sclera anicteric, conjunctiva clear ENT: Hearing grossly normal, nares patent, oropharynx clear without exudates. Moist mucosa. Poor dentition LUNGS: No distress, speaks in full sentences, clear to auscultation bilaterally HEART: Regular rate and rhythm, normal S1 and S2, no murmurs appreciated, peripheral pulses normal and equal bilaterally ABDOMEN: Soft, grimaces to palpation diffusely, non-distended, +BS RECTAL: BRBPR, soft stool noted, no external hemorrhoids EXTREMITIES: Moves all extremities independently NEUROLOGICAL: Cranial nerves II through XII grossly intact. Will speak in single words or short phrases, follows simple commands, no focal sensorimotor deficits SKIN: Warm, Dry, no pressure wounds/ulcers noted 05/27/19 08:51 ED Treatment Course - LABORATORY CBC & Chemistry Diagram: 05/27/19 08:45 05/27/19 10:00 - RADIOLOGY Radiograph Interpretation: CT/ABDOMEN & PELVIS CT W/O CONTR COMPARISON: 03/20/2019 FINDINGS: Again noted cardiomegaly Again noted small gallstones within the gallbladder The liver, spleen, pancreas and adrenal glands are unremarkable. There is no evidence of retroperitoneal lymphadenopathy or abdominal aortic aneurysm. There is significant calcification of the tortuous abdominal aorta and iliac arteries with possible mild aneurysmal dilatation of the abdominal aorta. This is also noted on prior study. There is a 5.5 cm right renal cyst also noted on prior study. Status post right colon surgery The urinary bladder is unremarkable. There is no evidence of bowel obstruction. There are no inflammatory changes of the colon. No fluid collections are identified. Significant amount of retained stool in the distended rectum. There is either residual stool in the rectosigmoid colon or possibly small mass Impression: Cardiomegaly Cholelithiasis Right renal cyst Status post right colon surgery Distended rectum with stool. Probably retained stool in rectosigmoid colon but small mass cannot be excluded 05/27/19 10:32 Single view AP portable chest Evaluation for pneumonia Trachea midline, mild cardiomegaly with moderate uncoiling calcified aortic arch , no mediastinal widening. No infiltrate, mass or effusion in the lungs. Impression: No lobar consolidation, no signs of pneumonia radiographically Medical Decision Making - Medical Decision Making The pt is an 88F w/ a history of colon cancer, chronic afib (no AC), COPD (O2 PRN) who presents for evaluation of reported melena at her NH today. ED Course CMP, CBC, T/S, Coags, FOBT ECG CXR CT A&P 05/27/19 08:53 ECG w/ 1st AV block, AZ 240; QTc 490; intermittent PACs noted, no axis deviation , no CARMELITA 05/27/19 09:50 Hgb 8.7, attempted to contact family for consent 05/27/19 11:07 Consent for transfusion obtained over the phone from Ursula Del Valle Will order 1u pRBC Protonix 40mg IV once Pt accepted to ICU Case discussed w/ Dr. Khan, will admit to ICU 05/27/19 11:[address] Rodas, agrees w/ transfusion Cr 1.4, near baseline Trop I 0.06, likely demand LFTs unremarkable Dispo: ICU 05/27/19 11:23 Discharge - Discharge Information Problems reviewed: Yes Clinical Impression/Diagnosis: Elevated troponin GI (gastrointestinal bleed) Qualifiers: GI bleed type/associated pathology: unspecified gastrointestinal hemorrhage type Qualified Code(s): K92.2 - Gastrointestinal hemorrhage, unspecified COPD (chronic obstructive pulmonary disease) Qualifiers: COPD type: unspecified COPD Qualified Code(s): J44.9 - Chronic obstructive pulmonary disease, unspecified Condition: Guarded - Admission Yes - Follow up/Referral Referrals: Yovanny Khan MD [Primary Care Provider] - - Patient Discharge Instructions - Post Discharge Activity
[2019-05-27 09:03] LABS: BASO % 0.5 % (0-2.0); EOS % 2.1 % (0-4.5); HEMATOCRIT 28.2 % (32.4-45.2); HEMOGLOBIN 8.7 GM/dL (10.7-15.3); LYMPH % 22.9 % (8-40); MCH 23.8 pg (25.7-33.7); MCHC 30.7 g/dl (32.0-36.0); MEAN CELL VOLUME 77.6 fl (80-96); MEAN PLT VOLUME 9.8 fl (7.5-11.1); MONO % 13.1 % (3.8-10.2); NEUT % 61.4 % (42.8-82.8); PLATELET COUNT 346 K/MM3 (134-434); RBC 3.64 M/mm3 (3.60-5.2); RDW 20.8 % (11.6-15.6); WHITE BLOOD COUNT 9.6 K/mm3 (4.0-10.0)
[2019-05-27 09:37] LABS: ALBUMIN 2.8 g/dl (3.4-5.0); BILIRUBIN,TOTAL 0.5 mg/dL (0.2-1); CREATININE 1.6 mg/dL (0.55-1.3); TOT PROT 8.1 g/dl (6.4-8.2)
[2019-05-27] MEDS ORDERED: SODIUM CHLORIDE 0.9% 500 ML INFUS.BAG IV ONE (09:40)
[2019-05-27 10:28] LABS: ANISOCYTOSIS 2+; MACROCYTOSIS 0; PLATELET ESTIMATE NORMAL; TARGET CELLS 1+
[2019-05-27 10:34] LABS: BLOOD UREA NITROGEN 52.4 mg/dL (7-18); CALCIUM 8.6 mg/dL (8.5-10.1); CREATININE 1.4 mg/dL (0.55-1.3); POTASSIUM 4.5 mmol/L (3.5-5.1)
--- NOTE | 2019-05-27 10:38 | EKG ---
Test Reason : Blood Pressure : / mmHG Vent. Rate : 099 BPM Atrial Rate : 099 BPM P-R Int : 240 ms QRS Dur : 080 ms QT Int : 382 ms P-R-T Axes : 103 003 -59 degrees QTc Int : 490 ms POOR DATA QUALITY, INTERPRETATION MAY BE ADVERSELY AFFECTED SINUS RHYTHM WITH 1ST DEGREE A-V BLOCK WITH PREMATURE ATRIAL COMPLEXES NONSPECIFIC T WAVE ABNORMALITY ABNORMAL ECG WHEN COMPARED WITH ECG OF 12-APR-2019 12:33, SINUS RHYTHM HAS REPLACED ATRIAL FIBRILLATION Confirmed by MD SHANTI, SEDA ([id number]) on 05/27/2019 10:37:51 AM Referred By: Confirmed By:SEDA MOSER MD
[2019-05-27] MEDS ORDERED: PANTOPRAZOLE SODIUM 40 MG VIAL IVPUSH ONE (11:19)
[2019-05-27 11:57] LABS: EPI CELLS 0.7 /HPF (0-5/HPF); HYALINE CASTS 12 /lpf (0-8); PH,URINE 6.5 (5.0-8.0); URINE APPEARANCE CLOUDY; URINE BACTERIA 1071.4 /hpf (NEGATIVE); URINE BILIRUBIN NEGATIVE (NEGATIVE); URINE COLOR YELLOW; URINE GLUCOSE (UA) NEGATIVE (NEGATIVE); URINE KETONE NEGATIVE (NEGATIVE); URINE LEUK ESTERASE 3+ (NEGATIVE); URINE NITRITE POSITIVE (NEGATIVE); URINE PROTEIN NEGATIVE (NEGATIVE); URINE RBC 3 /hpf (0-4); URINE UROBILINOGEN 0.2 mg/dL (0.2-1.0); URINE WBC 159 /hpf (0-5)
[2019-05-27] MEDS ORDERED: PANTOPRAZOLE SODIUM 40 MG/100 ML BAG IVPB ONE (12:01)
--- NOTE | 2019-05-27 13:47 | CONSULT ---
Consult Consult Specialty:: Pulm/CCM Reason for Consultation:: GI Bleed - History of Present Illness Chief Complaint: GI Bleed History of Present Illness: 88yo woman with PMHx of colon cancer, chronic afib (no AC), COPD (O2 PRN) who presents from [facility] today with report melena in am. In ED was SBP 80's wwith HR 90's. Labs notable for Hgb 8.7, BUN/Creat 54/1.4. Dirty UA. CT scan significant for stool in rectosigmoid colon+/- mass. GI was consulted. Of note colonoscopy and biopsy in 10/24 was significant for 3-4cm mass, + for adenocarcinoma. No resection performed at that time. She is being transferred to ICU for further management. In ICU rec'd A+Ox1. HD stable. Abd soft but c/o tenderness to palpation in all quadrants. Continues to have BM. 2 large bore IV in RUE. 1U PRBC infusing. 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: Alzheimer's, Dementia Cardio/Vascular: Yes: AFIB, CHF, Mitral Insufficiency Pulmonary: Yes: COPD Gastrointestinal: Yes: Cancer Hepatobiliary: Yes: Cholelithiasis Renal/: Yes: Renal Calculi Psych: Yes: Bipolar, Depression - Past Surgical History Past Surgical History: Yes: Colectomy - Alcohol/Substance Use Hx Alcohol Use: No History of Substance Use: reports: None - Smoking History Smoking history: Unknown if ever smoked Have you smoked in the past 12 months: No - Social History ADL: Support Services History of Recent Travel: No Home Medications - Allergies Allergies/Adverse Reactions: Allergies Allergy/AdvReac Type Severity Reaction Status Date / Time morphine Allergy Verified 10/07/18 02:23 Penicillins Allergy Verified 10/07/18 02:23 shellfish derived Allergy Verified 10/07/18 02:23 - Home Medications Home Medications: Ambulatory Orders Albuterol 0.083% Nebulizer Ani [Ventolin 0.083% Nebulizer Soln -] 1 amp NEB PRN 03/16/18 Budesonide/Formeterol Fumarate [SYMBICORT 80/4.5mcg -] 2 puff IH BID 03/16/18 Lisinopril 10 mg PO DAILY 03/16/18 Sertraline HCl [Zoloft -] 50 mg PO DAILY 03/16/18 Simvastatin [Zocor -] 10 mg PO HS 03/16/18 Zinc Gluconate [Zinc] 50 mg PO DAILY 03/16/18 Carvedilol [Coreg -] 12.5 mg PO BID 03/18/18 Pantoprazole Sodium [Protonix] 40 mg PO BID #30 tablet. 10/13/18 Zinc Oxide 1 applic TP BID tube 10/13/18 Ascorbic Acid [Vitamin C -] 500 mg PO BID tablet 04/13/19 Magnesium Hydroxide [Milk of Magnesia] 30 ml PO ASDIR PRN 05/27/19 Polyethylene Glycol 3350 [Miralax (For Daily Use) -] 17 gm PO DAILY 05/27/19 Family Medical History Family History: Unable to Obtain Review of Systems Unable to obtain ROS, reason: Unable to obtain Physical Exam Vital Signs: Vital Signs Temperature 98.9 F 05/27/19 08:20 Pulse Rate 96 H 05/27/19 11:51 Respiratory Rate 20 05/27/19 11:51 Blood Pressure 106/74 05/27/19 11:51 O2 Sat by Pulse Oximetry (%) 100 05/27/19 11:51 Constitutional: Yes: Well Nourished, No Distress, Calm Eyes: Yes: Conjunctiva Clear, Cataracts HENT: Yes: Atraumatic, Normocephalic Neck: Yes: Supple, Trachea Midline Cardiovascular: Yes: Regular Rate and Rhythm, S1, S2 Respiratory: Yes: Regular, CTA Bilaterally Gastrointestinal: Yes: Soft, Tenderness, Other (tender to mild palpation in all quadrants, nl BS) ...Rectal Exam: Yes: Deferred Renal/: Yes: Garcia Present Extremities: Yes: WNL Edema: No Peripheral Pulses WNL: Yes Integumentary: Yes: WNL Neurological: Yes: Other (Easily aroused, oriented x1) Labs: CBC, BMP 05/27/19 08:45 05/27/19 10:00 Imaging - Results Chest X-ray: Report Reviewed (Trachea midline, mild cardiomegaly with moderate uncoiling calcified aortic arch, no mediastinal widening. No infiltrate, mass or effusion in the lungs Impression: No lobar consolidation, no signs of pneumonia radiographically) Cat Scan: Report Reviewed (Cholelithiasis Right renal cyst Status post right colon surgery Distended rectum with stool. Probably retained stool in rectosigmoid colon but small mass cannot be excluded) Problem List - Problems (1) COPD (chronic obstructive pulmonary disease) Code(s): J44.9 - CHRONIC OBSTRUCTIVE PULMONARY DISEASE, UNSPECIFIED Qualifiers: COPD type: unspecified COPD Qualified Code(s): J44.9 - Chronic obstructive pulmonary disease, unspecified (2) GI (gastrointestinal bleed) Code(s): K92.2 - GASTROINTESTINAL HEMORRHAGE, UNSPECIFIED Qualifiers: GI bleed type/associated pathology: unspecified gastrointestinal hemorrhage type Qualified Code(s): K92.2 - Gastrointestinal hemorrhage, unspecified (3) Adenocarcinoma of transverse colon Code(s): C18.4 - MALIGNANT NEOPLASM OF TRANSVERSE COLON (4) Anemia requiring transfusions Code(s): D64.9 - ANEMIA, UNSPECIFIED (5) Chronic atrial fibrillation Code(s): I48.2 - CHRONIC ATRIAL FIBRILLATION * DO NOT USE * (6) Dementia Code(s): F03.90 - UNSPECIFIED DEMENTIA WITHOUT BEHAVIORAL DISTURBANCE Assessment/Plan 88 year old woman admitted with melena, anemia requiring blood transfusion. Also with possible stool impaction, FRANCK and UTI. - GI consult -Surgery consult - Maintain large bore IV -Serial CBC -Pantoprazole IV BID -Tranfuse for Hgb<8 - HD monitor -Maintain NPO for now -Renal dose meds -IVF - F/u urine culture -Consider empiric abx if urine culture +. Lisa Wetzel, ACNP- Pulm/CCM [id number]
[2019-05-27] MEDS ORDERED: ALBUTEROL SO4 0.083% IH SOL 2.5 MG/3 ML VIAL.NEB. NEB PRN (14:00)
--- NOTE | 2019-05-27 14:01 | HP ---
Admitting History and Physical - Primary Care Physician PCP: Yovanny Khan - Admission History of Present Illness: pt seen/ examined in icu chart reviewed well known to me from previous admissions and from [facility] send my me for hypotension/ gi bleed/ anemia d/w er physician earlier also d/w rn/ icu attending and Dr. 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 Cardiovascular: Yes: AFIB, CHF, Mitral Insufficiency Pulmonary: Yes: COPD Gastrointestinal: Yes: Cancer Hepatobiliary: Yes: Cholelithiasis Renal/: Yes: Renal Calculi Heme/Onc: Yes: Anemia Psych: Yes: Bipolar, Depression - Past Surgical History Past Surgical History: Yes: Colectomy - Smoking History Smoking history: Unknown if ever smoked Have you smoked in the past 12 months: No - Alcohol/Substance Use Hx Alcohol Use: No History of Substance Use: reports: None - Social History ADL: Support Services History of Recent Travel: No Home Medications - Allergies Allergies/Adverse Reactions: Allergies Allergy/AdvReac Type Severity Reaction Status Date / Time morphine Allergy Verified 10/07/18 02:23 Penicillins Allergy Verified 10/07/18 02:23 shellfish derived Allergy Verified 10/07/18 02:23 - Home Medications Home Medications: Ambulatory Orders Albuterol 0.083% Nebulizer Ani [Ventolin 0.083% Nebulizer Soln -] 1 amp NEB PRN 03/16/18 Budesonide/Formeterol Fumarate [SYMBICORT 80/4.5mcg -] 2 puff IH BID 03/16/18 Lisinopril 10 mg PO DAILY 03/16/18 Sertraline HCl [Zoloft -] 50 mg PO DAILY 03/16/18 Simvastatin [Zocor -] 10 mg PO HS 03/16/18 Zinc Gluconate [Zinc] 50 mg PO DAILY 03/16/18 Carvedilol [Coreg -] 12.5 mg PO BID 03/18/18 Pantoprazole Sodium [Protonix] 40 mg PO BID #30 tablet. 10/13/18 Zinc Oxide 1 applic TP BID tube 10/13/18 Ascorbic Acid [Vitamin C -] 500 mg PO BID tablet 04/13/19 Magnesium Hydroxide [Milk of Magnesia] 30 ml PO ASDIR PRN 05/27/19 Polyethylene Glycol 3350 [Miralax (For Daily Use) -] 17 gm PO DAILY 05/27/19 Review of Systems Findings/Remarks: see kiana Physical Examination Vital Signs: Vital Signs Temperature 98.9 F 05/27/19 08:20 Pulse Rate 96 H 05/27/19 11:51 Respiratory Rate 20 05/27/19 11:51 Blood Pressure 106/74 05/27/19 11:51 O2 Sat by Pulse Oximetry (%) 100 05/27/19 11:51 Constitutional: Yes: No Distress Eyes: Yes: Conjunctiva Clear Neck: Yes: Supple Cardiovascular: Yes: Regular Rate and Rhythm Respiratory: Yes: CTA Bilaterally Gastrointestinal: Yes: Soft Edema: No Labs: CBC, BMP 05/27/19 08:45 05/27/19 10:00 Imaging - Results Chest X-ray: Report Reviewed Cat Scan: Report Reviewed EKG: Report Reviewed Problem List - Problems (1) GI (gastrointestinal bleed) Code(s): K92.2 - GASTROINTESTINAL HEMORRHAGE, UNSPECIFIED Qualifiers: GI bleed type/associated pathology: unspecified gastrointestinal hemorrhage type Qualified Code(s): K92.2 - Gastrointestinal hemorrhage, unspecified (2) Hematochezia Code(s): K92.1 - MELENA (3) Adenocarcinoma of transverse colon Code(s): C18.4 - MALIGNANT NEOPLASM OF TRANSVERSE COLON (4) Anemia requiring transfusions Code(s): D64.9 - ANEMIA, UNSPECIFIED (5) Chronic atrial fibrillation Code(s): I48.2 - CHRONIC ATRIAL FIBRILLATION * DO NOT USE * (6) Dementia Code(s): F03.90 - UNSPECIFIED DEMENTIA WITHOUT BEHAVIORAL DISTURBANCE Assessment/Plan Admit - icu for now transfuse as needed monitor cbc Protonix Colonoscopy by Dr Cardoso 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 Likely bleeding from that Advance directives ? Full code for now Son who is not Legal gaurdian dont believe in diagonsis of cancer. pt has legal gaurdian Message left for Legal Gasudeepdian to call back-- [phone] will consult palliative care Will consult surgery also for now Will follow cc time approx 45 min.
--- NOTE | 2019-05-27 15:26 | CON.GI ---
Consult Consult Specialty:: Gastroenterology ( covering Dr Cardoso) Referred by:: Dr. Chriss Khan Reason for Consultation:: Rectal bleeding - History of Present Illness Chief Complaint: Rectal bleeding History of Present Illness: 88F is transferred from the [facility] for hematochezia. She presneted to [facility] with a Hb of 6.3 in 10/24 on Xarelto for atrial fibrilation. EGD was unremarkable. Colonoscopy by Dr Cardoso discovered an ulcerated adenocarcinoma just distal to an ileocolonic anastomsis. He tattooed it. Dr Khan informs me that her legal guardian opted against surgery or even a CT scan and was returned to the [place]. CT scan without contrast reveals only a mass in the rectum was seen during the colonoscopy and likely reflects stool. No uterus is seen so I suspect a hysterectomy as well. Dr Khan is awaiting a return call from the health care proxy but for now the patient is not DNR. Her renal function however precludes a CTA. 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 recurrent cancer) Hepatobiliary: Yes: Cholelithiasis Renal/: Yes: Renal Inusuff, Renal Calculi Psych: Yes: Bipolar, Depression - Past Surgical History Past Surgical History: Yes: Colectomy, Colonoscopy, Hysterectomy, Upper Endoscopy - Alcohol/Substance Use Hx Alcohol Use: No History of Substance Use: reports: None - Smoking History Smoking history: Unknown if ever smoked Have you smoked in the past 12 months: No - Social History ADL: Support Services History of Recent Travel: No Home Medications - Allergies Allergies/Adverse Reactions: Allergies Allergy/AdvReac Type Severity Reaction Status Date / Time morphine Allergy Verified 10/07/18 02:23 Penicillins Allergy Verified 10/07/18 02:23 shellfish derived Allergy Verified 10/07/18 02:23 - Home Medications Home Medications: Ambulatory Orders Albuterol 0.083% Nebulizer Ani [Ventolin 0.083% Nebulizer Soln -] 1 amp NEB PRN 03/16/18 Budesonide/Formeterol Fumarate [SYMBICORT 80/4.5mcg -] 2 puff IH BID 03/16/18 Lisinopril 10 mg PO DAILY 03/16/18 Sertraline HCl [Zoloft -] 50 mg PO DAILY 03/16/18 Simvastatin [Zocor -] 10 mg PO HS 03/16/18 Zinc Gluconate [Zinc] 50 mg PO DAILY 03/16/18 Carvedilol [Coreg -] 12.5 mg PO BID 03/18/18 Pantoprazole Sodium [Protonix] 40 mg PO BID #30 tablet. 10/13/18 Zinc Oxide 1 applic TP BID tube 10/13/18 Ascorbic Acid [Vitamin C -] 500 mg PO BID tablet 04/13/19 Magnesium Hydroxide [Milk of Magnesia] 30 ml PO ASDIR PRN 05/27/19 Polyethylene Glycol 3350 [Miralax (For Daily Use) -] 17 gm PO DAILY 05/27/19 Family Medical History Family History: Unable to Obtain Review of Systems Unable to obtain ROS, reason: dementia Physical Exam-GI Vital Signs: Vital Signs Temperature 98.9 F 05/27/19 08:20 Pulse Rate 96 H 05/27/19 11:51 Respiratory Rate 20 05/27/19 11:51 Blood Pressure 106/74 05/27/19 11:51 O2 Sat by Pulse Oximetry (%) 100 05/27/19 11:51 CBC,CMP WBC 9.6 K/mm3 (4.0-10.0) 05/27/19 08:45 RBC 3.64 M/mm3 (3.60-5.2) 05/27/19 08:45 Hgb 8.7 GM/dL (10.7-15.3) L 05/27/19 08:45 Hct 28.2 % (32.4-45.2) L 05/27/19 08:45 MCV 77.6 fl (80-96) L 05/27/19 08:45 MCH 23.8 pg (25.7-33.7) L 05/27/19 08:45 MCHC 30.7 g/dl (32.0-36.0) L 05/27/19 08:45 RDW 20.8 % (11.6-15.6) H 05/27/19 08:45 Plt Count 346 K/MM3 (134-434) D 05/27/19 08:45 MPV 9.8 fl (7.5-11.1) D 05/27/19 08:45 Absolute Neuts (auto) 5.9 K/mm3 (1.5-8.0) 05/27/19 08:45 Neutrophils % 61.4 % (42.8-82.8) 05/27/19 08:45 Lymphocytes % 22.9 % (8-40) 05/27/19 08:45 Monocytes % 13.1 % (3.8-10.2) H 05/27/19 08:45 Eosinophils % 2.1 % (0-4.5) 05/27/19 08:45 Basophils % 0.5 % (0-2.0) 05/27/19 08:45 Nucleated RBC % 0 % (0-0) 05/27/19 08:45 Hypochromia 1+ 05/27/19 08:45 Platelet Estimate Normal 05/27/19 08:45 Polychromasia 0 05/27/19 08:45 Poikilocytosis 1+ 05/27/19 08:45 Anisocytosis 2+ 05/27/19 08:45 Microcytosis 2+ 05/27/19 08:45 Macrocytosis 0 05/27/19 08:45 Target Cells 1+ 05/27/19 08:45 Fragmented RBCs 1+ 05/27/19 08:45 Sodium 144 mmol/L (136-145) 05/27/19 10:00 Potassium 4.5 mmol/L (3.5-5.1) 05/27/19 10:00 Chloride 108 mmol/L (98-107) H 05/27/19 10:00 Carbon Dioxide 30 mmol/L (21-32) 05/27/19 10:00 Anion Gap 6 MMOL/L (8-16) L 05/27/19 10:00 BUN 52.4 mg/dL (7-18) H 05/27/19 10:00 Creatinine 1.4 mg/dL (0.55-1.3) H 05/27/19 10:00 Est GFR (CKD-EPI)AfAm 39.33 05/27/19 10:00 Est GFR (CKD-EPI)NonAf 33.94 05/27/19 10:00 Random Glucose 99 mg/dL (74-106) 05/27/19 10:00 Calcium 8.6 mg/dL (8.5-10.1) 05/27/19 10:00 Total Bilirubin 0.5 mg/dL (0.2-1) 05/27/19 08:45 AST 60 U/L (15-37) H 05/27/19 08:45 ALT 21 U/L (13-61) 05/27/19 08:45 Alkaline Phosphatase 79 U/L (45-117) 05/27/19 08:45 Troponin I 0.06 ng/ml (0.00-0.05) H 05/27/19 08:45 Total Protein 8.1 g/dl (6.4-8.2) 05/27/19 08:45 Albumin 2.8 g/dl (3.4-5.0) L 05/27/19 08:45 Current Medications Generic Name Dose Route Start Last Admin Trade Name Freq PRN Reason Stop Dose Admin Albuterol Sulfate 1 amp 05/27/19 14:00 Ventolin 0.083% Nebulizer Soln - NEB Q6H PRN SHORT OF BREATH/WHEEZING Atorvastatin Calcium 10 mg 05/27/19 22:00 Lipitor - PO HS GEORGE Budesonide/Formoterol Fumarate 2 puff 05/27/19 22:00 Symbicort 80/4.5mcg - IH BID GEORGE Chlorhexidine Gluconate 1 applic 05/27/19 22:00 Hibiclens For Decolonization - TP HS GEORGE Multi-Ingredient Ointment 1 applic 05/27/19 22:00 Zinc Oxide TP BID GEORGE Mupirocin 1 applic 05/27/19 22:00 Bactroban Ointment (For Decolonization) - NS 06/01/19 21:59 BID GEORGE Pantoprazole Sodium 40 mg 05/28/19 10:00 Protonix Iv IVPUSH DAILY GEORGE Sertraline HCl 50 mg 05/28/19 10:00 Zoloft - PO DAILY GEORGE Constitutional: Yes: No Distress Eyes: Yes: Conjunctiva Clear HENT: Yes: Atraumatic Neck: Yes: Trachea Midline Cardiovascular: Yes: Pulse Irregular, Murmur (3/6 holosystolic murmur apical area) Respiratory: Yes: CTA Bilaterally Gastrointestinal Inspection: Yes: Scars (vertical suprapaubic and parallel right suprapubic incisions) ...Auscultate: Yes: Normoactive Bowel Sounds ...Palpate: Yes: Soft, Other (nontender) ...Percussion: Yes: Tympanitic ...Rectal Exam: Yes: Guaiac Positive (dried red blood, no masses is palpable) Neurological: Yes: Other (awake but not conversant) Labs: CBC, BMP 05/27/19 08:45 05/27/19 10:00 Imaging - Results Cat Scan: Report Reviewed ( Final Report CT ABDOMEN & PELVIS CT W/O CONTR Show Printer-Friendly Version with Image (1 of 1) Show Printer- Friendly Version without images Patient Name: Aminta Berrios : 1930 ID: [id number] Study Date: 27-May-2019 09:56 [facility] Name: BERRIOS,AMINTA DEPARTMENT OF RADIOLOGY Phys: Alberto Rizvi RESIDENT : 1930 Age: 88 Sex: F [facility] Acct: [id number] Loc: [address] Exam Date: 05/27/19 Status: [facility] [place] [place] [address] Unit Number: [id number] EXAM#: TYPE/EXAM: RESULT: [id number] CT/ABDOMEN PELVIS CT W/O CONTR History: Abdominal pain CT Scan of abdomen and pelvis without oral or IV contrast COMPARISON: 03/20/2019 FINDINGS: Again noted cardiomegaly Again noted small gallstones within the gallbladder The liver, spleen, pancreas and adrenal glands are unremarkable. There is no evidence of retroperitoneal lymphadenopathy or abdominal aortic aneurysm. There is significant calcification of the tortuous abdominal aorta and iliac arteries with possible mild aneurysmal dilatation of the abdominal aorta. This is also noted on prior study There is a 5.5 cm right renal cyst also noted on prior study Status post right colon surgery The urinary bladder is unremarkable. There is no evidence of bowel obstruction. There are no inflammatory changes of the colon. No fluid collections are identified. Significant amount of retained stool in the distended rectum. There is either residual stool in the rectosigmoid colon or possibly small mass Impression: Cardiomegaly Cholelithiasis Right renal cyst Status post right colon surgery Distended rectum with stool. Probably retained stool in rectosigmoid colon but small mass cannot be excluded Reported By: Aldo Chadwick MD 05/27/19 1031 Alberto Rizvi Technologist: Brandan Mark Transcribed Date/Time: 05/27/19 1031 Advisory Services Associate: Aldo Chadwick Printed Date/Time: By: Signed by: Aldo Chadwick Signed on: 27-May-2019 10: 32) Problem List - Problems (1) Hematochezia Code(s): K92.1 - MELENA (2) Adenocarcinoma of transverse colon Code(s): C18.4 - MALIGNANT NEOPLASM OF TRANSVERSE COLON (3) Chronic atrial fibrillation Code(s): I48.2 - CHRONIC ATRIAL FIBRILLATION * DO NOT USE * (4) Dementia Code(s): F03.90 - UNSPECIFIED DEMENTIA WITHOUT BEHAVIORAL DISTURBANCE Assessment/Plan Assessment: - Given that no diverticuli or angiodysplasias were encountered during the 10/[address] Cardoso I believe that her bleeding is emanating from her proximal-most colon perianastomotic ulcerated adenocarcinoma. A CTA could help to confirm this but her renal function will not permit it at this time. Plan: -- Serial CBCs --Transfuse as necessary -- If bleeding persists will need CTA and perhaps embolization. Given that this is a recurrent cancer surgery would be the optimal management is consent is given I discussed the case with Dr. Khan. and the [facility] GI service will assume care tomorrow.
--- NOTE | 2019-05-27 16:03 | CONSULT ---
Consult Consult Specialty:: Surgery Referred by:: Yovanny Khan MD Reason for Consultation:: Anemia, Known to have carcinoma of colon for the past 3 months. - History of Present Illness Chief Complaint: Patieny not able to answer qusetions. Transferred fro [facility]. 88 year old womamn found to have rectal bleeding and profound anemia. 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 recurrent cancer) Hepatobiliary: Yes: Cholelithiasis Renal/: Yes: Renal Inusuff, Renal Calculi Psych: Yes: Bipolar, Depression - Past Surgical History Past Surgical History: Yes: Colectomy, Colonoscopy, Hysterectomy, Upper Endoscopy - Alcohol/Substance Use Hx Alcohol Use: No History of Substance Use: reports: None - Smoking History Smoking history: Unknown if ever smoked Have you smoked in the past 12 months: No - Social History ADL: Support Services History of Recent Travel: No Home Medications - Allergies Allergies/Adverse Reactions: Allergies Allergy/AdvReac Type Severity Reaction Status Date / Time morphine Allergy Verified 10/07/18 02:23 Penicillins Allergy Verified 10/07/18 02:23 shellfish derived Allergy Verified 10/07/18 02:23 - Home Medications Home Medications: Ambulatory Orders Albuterol 0.083% Nebulizer Ani [Ventolin 0.083% Nebulizer Soln -] 1 amp NEB PRN 03/16/18 Budesonide/Formeterol Fumarate [SYMBICORT 80/4.5mcg -] 2 puff IH BID 03/16/18 Lisinopril 10 mg PO DAILY 03/16/18 Sertraline HCl [Zoloft -] 50 mg PO DAILY 03/16/18 Simvastatin [Zocor -] 10 mg PO HS 03/16/18 Zinc Gluconate [Zinc] 50 mg PO DAILY 03/16/18 Carvedilol [Coreg -] 12.5 mg PO BID 03/18/18 Pantoprazole Sodium [Protonix] 40 mg PO BID #30 tablet. 10/13/18 Zinc Oxide 1 applic TP BID tube 10/13/18 Ascorbic Acid [Vitamin C -] 500 mg PO BID tablet 04/13/19 Magnesium Hydroxide [Milk of Magnesia] 30 ml PO ASDIR PRN 05/27/19 Polyethylene Glycol 3350 [Miralax (For Daily Use) -] 17 gm PO DAILY 05/27/19 Physical Exam Vital Signs: Vital Signs Temperature 98.9 F 05/27/19 08:20 Pulse Rate 96 H 05/27/19 11:51 Respiratory Rate 20 05/27/19 11:51 Blood Pressure 106/74 05/27/19 11:51 O2 Sat by Pulse Oximetry (%) 100 05/27/19 11:51 Labs: CBC, BMP 05/27/19 08:45 05/27/19 10:00 Imaging - Results Chest X-ray: Report Reviewed Cat Scan: Report Reviewed (Gallstones, no intestinal obstructioon), Image Reviewed (Gallstones, no intestinal obstruction.) Problem List - Problems (1) Hematochezia Code(s): K92.1 - MELENA (2) Adenocarcinoma of transverse colon Code(s): C18.4 - MALIGNANT NEOPLASM OF TRANSVERSE COLON (3) Dementia Code(s): F03.90 - UNSPECIFIED DEMENTIA WITHOUT BEHAVIORAL DISTURBANCE (4) Chronic atrial fibrillation Code(s): I48.2 - CHRONIC ATRIAL FIBRILLATION * DO NOT USE * (5) COPD (chronic obstructive pulmonary disease) Code(s): J44.9 - CHRONIC OBSTRUCTIVE PULMONARY DISEASE, UNSPECIFIED Qualifiers: COPD type: unspecified COPD Qualified Code(s): J44.9 - Chronic obstructive pulmonary disease, unspecified Assessment/Plan Transfuse patient, Consent from family for further treatment , colonoscopy, and possible colonoscopy , intervention. will follow,.
[2019-05-27 19:03] LABS: HEMATOCRIT 24.1 % (32.4-45.2); HEMOGLOBIN 7.1 GM/dL (10.7-15.3); MCH 22.9 pg (25.7-33.7); MCHC 29.6 g/dl (32.0-36.0); MEAN CELL VOLUME 77.4 fl (80-96); MEAN PLT VOLUME 8.1 fl (7.5-11.1); PLATELET COUNT 191 K/MM3 (134-434); RBC 3.11 M/mm3 (3.60-5.2); RDW 20.9 % (11.6-15.6); WHITE BLOOD COUNT 13.4 K/mm3 (4.0-10.0)
[2019-05-27] MEDS ORDERED: PANTOPRAZOLE 40 MG TABLET (FP) PO SCH (22:00)
[2019-05-27] MEDS: MUPIROCIN 2% TOPICAL OINTMENT FOR DECOLONIZATION NS SCH (23:13)
[2019-05-27] MEDS: CHLORHEXIDINE GLUCONATE 4% CLEANSER FOR DECOLONIZATION TP SCH (23:14)
[2019-05-27] MEDS: ATORVASTATIN CA 10 MG TABLET (FP) PO SCH (23:14)
[2019-05-27] MEDS: BUDESONIDE/FORMETEROL FUMARATE 80/4.5 mcg INHALER IH SCH (23:17)
[2019-05-27] MEDS: ZINC OXIDE 20% TOPICAL OINTMENT 30 GM TUBE TP SCH (23:18)
[2019-05-28 03:23] LABS: HEMATOCRIT 31.5 % (32.4-45.2); HEMOGLOBIN 10.3 GM/dL (10.7-15.3); MCH 26.9 pg (25.7-33.7); MCHC 32.8 g/dl (32.0-36.0); MEAN PLT VOLUME 8.6 fl (7.5-11.1); PLATELET COUNT 142 K/MM3 (134-434); RBC 3.84 M/mm3 (3.60-5.2); RDW 20.8 % (11.6-15.6); WHITE BLOOD COUNT 10.5 K/mm3 (4.0-10.0)
[2019-05-28] MEDS ORDERED: SODIUM CHLORIDE 0.9% 500 ML INFUS.BAG IV ONE (06:08)
[2019-05-28 06:43] LABS: BASO % 0.5 % (0-2.0); EOS % 1.9 % (0-4.5); HEMATOCRIT 29.5 % (32.4-45.2); HEMOGLOBIN 9.9 GM/dL (10.7-15.3); LYMPH % 23.1 % (8-40); MCH 27.2 pg (25.7-33.7); MCHC 33.5 g/dl (32.0-36.0); MEAN CELL VOLUME 81.2 fl (80-96); MEAN PLT VOLUME 8.6 fl (7.5-11.1); MONO % 10.6 % (3.8-10.2); NEUT % 63.9 % (42.8-82.8); PLATELET COUNT 136 K/MM3 (134-434); RBC 3.63 M/mm3 (3.60-5.2); RDW 20.2 % (11.6-15.6); WHITE BLOOD COUNT 9.3 K/mm3 (4.0-10.0)
[2019-05-28 07:14] LABS: BILIRUBIN,TOTAL 0.7 mg/dL (0.2-1); BLOOD UREA NITROGEN 42.7 mg/dL (7-18); CALCIUM 7.9 mg/dL (8.5-10.1); CREATININE 1.1 mg/dL (0.55-1.3); POTASSIUM 4.6 mmol/L (3.5-5.1); TOT PROT 5.3 g/dl (6.4-8.2)
[2019-05-28] MEDS ORDERED: PT OWN MED DRAWER 7, Y5N ONE (09:46)
[2019-05-28] MEDS: BUDESONIDE/FORMETEROL FUMARATE 80/4.5 mcg INHALER IH SCH ×3 (09:55→22:43)
[2019-05-28] MEDS: PANTOPRAZOLE SODIUM 40 MG VIAL IVPUSH SCH (09:55)
[2019-05-28] MEDS: MUPIROCIN 2% TOPICAL OINTMENT FOR DECOLONIZATION NS SCH ×2 (09:55→22:35)
[2019-05-28] MEDS: ZINC OXIDE 20% TOPICAL OINTMENT 30 GM TUBE TP SCH ×2 (09:55→22:35)
[2019-05-28] MEDS: SERTRALINE HCL 50 MG TABLET (FP) PO SCH (09:56)
--- NOTE | 2019-05-28 12:10 | PN ---
Teaching Attending Note Name of Resident: Kuldeep Galdamez ATTENDING PHYSICIAN STATEMENT I saw and evaluated the patient. I reviewed the resident's note and discussed the case with the resident. I agree with the resident's findings and plan as documented. SUBJECTIVE: Patient seen and examined in the ICU. Drowsy but arousable. Able to answer some questions but is confused. No occult bleeding overnight and only required 1 unit of pRBCs. Intake & Output 05/25/19 05/26/19 05/27/19 05/28/19 23:59 23:59 23:59 23:59 Intake Total 1550 1350 Output Total 500 300 Balance 1050 1050 Weight 142 lb 11.2 oz 144 lb 4 oz Last Vital Signs Temp Pulse Resp BP Pulse Ox 98 F 99 H 21 H 119/95 100 05/28/19 06:00 05/28/19 08:00 05/28/19 08:00 05/28/19 08:00 05/27/19 22:00 Active Medications Albuterol Sulfate (Ventolin 0.083% Nebulizer Soln -) 1 amp NEB Q6H PRN PRN Reason: SHORT OF BREATH/WHEEZING Atorvastatin Calcium (Lipitor -) 10 mg PO HS [facility] Last Admin: 05/27/19 23:14 Dose: Not Given Budesonide/Formoterol Fumarate (Symbicort 80/4.5mcg -) 2 puff IH BID [facility] Last Admin: 05/28/19 09:55 Dose: Not Given Chlorhexidine Gluconate (Hibiclens For Decolonization -) 1 applic TP HS [facility] Last Admin: 05/27/19 23:14 Dose: 1 applic Multi-Ingredient Ointment (Zinc Oxide) 1 applic TP BID [facility] Last Admin: 05/28/19 09:55 Dose: 1 applic Mupirocin (Bactroban Ointment (For Decolonization) -) 1 applic NS BID [facility] Stop: 06/01/19 21:59 Last Admin: 05/28/19 09:55 Dose: 1 applic Pantoprazole Sodium (Protonix Iv) 40 mg IVPUSH DAILY [facility] Last Admin: 05/28/19 09:55 Dose: 40 mg Sertraline HCl (Zoloft -) 50 mg PO DAILY [facility] Last Admin: 05/28/19 09:56 Dose: Not Given Constitutional: Yes: Drowsy but arousable, NAD, confused Eyes: Yes: Conjunctiva Clear, Cataracts HENT: Yes: Atraumatic, Normocephalic Neck: Yes: Supple, Trachea Midline Cardiovascular: Yes: Regular Rate and Rhythm, S1, S2 Respiratory: Yes: CTA Bilaterally Gastrointestinal: Yes: Soft, (+) BS, mild tenderness to palpation, no guarding or rigidity Renal/: Yes: Garcia Present Extremities: Yes: WNL Edema: No Peripheral Pulses WNL: Yes Integumentary: Yes: WNL Neurological: Yes: Drowsy but arousable, confused, non-focal Labs: Laboratory Results - last 24 hr 05/27/19 05/27/19 05/28/19 10:00 18:55 03:00 WBC 13.4 H 10.5 H RBC 3.11 L 3.84 Hgb 7.1 L 10.3 L Hct 24.1 L 31.5 L D MCV 77.4 L 82.0 MCH 22.9 L 26.9 D MCHC 29.6 L 32.8 RDW 20.9 H 20.8 H Plt Count 191 D 142 D MPV 8.1 D 8.6 Absolute Neuts (auto) Neutrophils % Lymphocytes % Monocytes % Eosinophils % Basophils % Nucleated RBC % Sodium Potassium Chloride Carbon Dioxide Anion Gap BUN Creatinine Est GFR (CKD-EPI)AfAm Est GFR (CKD-EPI)NonAf Random Glucose Calcium Total Bilirubin AST ALT Alkaline Phosphatase Total Protein Albumin Blood Type O POSITIVE Antibody Screen Negative Crossmatch See Detail 05/28/19 05/28/19 05:30 05:30 WBC 9.3 RBC 3.63 Hgb 9.9 L Hct 29.5 L MCV 81.2 MCH 27.2 MCHC 33.5 RDW 20.2 H Plt Count 136 MPV 8.6 Absolute Neuts (auto) 6.0 Neutrophils % 63.9 Lymphocytes % 23.1 Monocytes % 10.6 H Eosinophils % 1.9 Basophils % 0.5 Nucleated RBC % 0 Sodium 147 H Potassium 4.6 Chloride 117 H Carbon Dioxide 25 Anion Gap 5 L BUN 42.7 H Creatinine 1.1 Est GFR (CKD-EPI)AfAm 52.65 Est GFR (CKD-EPI)NonAf 45.42 Random Glucose 85 Calcium 7.9 L Total Bilirubin 0.7 AST 14 L ALT 11 L Alkaline Phosphatase 52 Total Protein 5.3 L Albumin 2.0 L Blood Type Antibody Screen Crossmatch Problem List - Problems (1) COPD (chronic obstructive pulmonary disease) Code(s): J44.9 - CHRONIC OBSTRUCTIVE PULMONARY DISEASE, UNSPECIFIED Qualifiers: COPD type: unspecified COPD Qualified Code(s): J44.9 - Chronic obstructive pulmonary disease, unspecified (2) GI (gastrointestinal bleed) Code(s): K92.2 - GASTROINTESTINAL HEMORRHAGE, UNSPECIFIED Qualifiers: GI bleed type/associated pathology: unspecified gastrointestinal hemorrhage type Qualified Code(s): K92.2 - Gastrointestinal hemorrhage, unspecified (3) Adenocarcinoma of transverse colon Code(s): C18.4 - MALIGNANT NEOPLASM OF TRANSVERSE COLON (4) Anemia requiring transfusions Code(s): D64.9 - ANEMIA, UNSPECIFIED (5) Chronic atrial fibrillation Code(s): I48.2 - CHRONIC ATRIAL FIBRILLATION * DO NOT USE * (6) Dementia Code(s): F03.90 - UNSPECIFIED DEMENTIA WITHOUT BEHAVIORAL DISTURBANCE Assessment/Plan Normal transfusion thresholds Maintain large bore IV Serial CBC PPI GI workup ongoing NPO until cleared by GI Currently off ABX Floor Dr Goodrich
--- NOTE | 2019-05-28 13:27 | PN ---
Progress Note (short form) - Note Progress Note: pt seen/ examined awake/ comfortable. denies pain Vital Signs Temp 98 F 05/28/19 06:00 Pulse 99 H 05/28/19 08:00 Resp 21 H 05/28/19 09:00 BP 119/95 05/28/19 08:00 Pulse Ox 100 05/28/19 09:00 Intake & Output 05/27/19 05/28/19 05/28/19 23:59 11:59 23:59 Intake Total 1550 1350 Output Total 400 300 Balance 1150 1050 Weight 142 lb 11.2 oz 144 lb 4 oz Intake: IV 500 1000 #18 LEJ 1000 NS bolus 500 Oral 0 Packed Cells 1050 350 Output: Urine 400 300 Garcia 400 300 Other: Voiding Method Indwelling Catheter Indwelling Catheter Bowel Movement Yes: bloody with clots No # Bowel Movements 1 Height 5 ft 1 in Body Mass Index (BMI) 26.9 Weight Measurement Method Built in Bedscale Built in Bedscale Active Medications Albuterol Sulfate (Ventolin 0.083% Nebulizer Soln -) 1 amp NEB Q6H PRN PRN Reason: SHORT OF BREATH/WHEEZING Atorvastatin Calcium (Lipitor -) 10 mg PO HS [facility] Last Admin: 05/27/19 23:14 Dose: Not Given Budesonide/Formoterol Fumarate (Symbicort 80/4.5mcg -) 2 puff IH BID [facility] Last Admin: 05/28/19 09:55 Dose: Not Given Chlorhexidine Gluconate (Hibiclens For Decolonization -) 1 applic TP HS [facility] Last Admin: 05/27/19 23:14 Dose: 1 applic Multi-Ingredient Ointment (Zinc Oxide) 1 applic TP BID [facility] Last Admin: 05/28/19 09:55 Dose: 1 applic Mupirocin (Bactroban Ointment (For Decolonization) -) 1 applic NS BID [facility] Stop: 06/01/19 21:59 Last Admin: 05/28/19 09:55 Dose: 1 applic Pantoprazole Sodium (Protonix Iv) 40 mg IVPUSH DAILY [facility] Last Admin: 05/28/19 09:55 Dose: 40 mg Sertraline HCl (Zoloft -) 50 mg PO DAILY [facility] Last Admin: 05/28/19 09:56 Dose: Not Given CBC, BMP 05/28/19 05:30 10/21/19 05:30 Microbiology 05/27/19 11:35 Urine Culture - Preliminary Urine - Urine Clean Catch Lactose Fermenting Neg Bacilli Physical Examination Constitutional: Yes: No Distress/ comfortable Eyes: Yes: Conjunctiva Clear Neck: Yes: Supple Cardiovascular: Yes: Regular Rate and Rhythm Respiratory: Yes: CTA Bilaterally Gastrointestinal: Yes: Soft Edema: No Assessment/Plan Stable transfuse as needed monitor cbc Protonix Colonoscopy by Dr Cardoso 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 Likely bleeding from that Advance directives ? Full code for now Son who is not Legal gaurdian dont believe in diagonsis of cancer. pt has legal gaurdian Message left for Legal Gaurdian to call back-- [phone]-- still awaiting call back will consult palliative care-- pending pts oncology- outside-- recommends comfort care/ hospice. will follow. I Believe need Ethics consult Son wants everything done-- He is not HCP Legal Gaurdian--Not responding . Outside Oncology-- recommends Comfort care/ Hospice care I also believe considering age/ Diagnosis/overall condition - Comfort care be best for pt-- Await Palliative consult Will follow. Problem List - Problems (1) GI (gastrointestinal bleed) Code(s): K92.2 - GASTROINTESTINAL HEMORRHAGE, UNSPECIFIED Qualifiers: GI bleed type/associated pathology: unspecified gastrointestinal hemorrhage type Qualified Code(s): K92.2 - Gastrointestinal hemorrhage, unspecified (2) Hematochezia Code(s): K92.1 - MELENA (3) Adenocarcinoma of transverse colon Code(s): C18.4 - MALIGNANT NEOPLASM OF TRANSVERSE COLON (4) Anemia requiring transfusions Code(s): D64.9 - ANEMIA, UNSPECIFIED (5) Chronic atrial fibrillation Code(s): I48.2 - CHRONIC ATRIAL FIBRILLATION * DO NOT USE * (6) Dementia Code(s): F03.90 - UNSPECIFIED DEMENTIA WITHOUT BEHAVIORAL DISTURBANCE
--- NOTE | 2019-05-28 16:22 | PROC ---
Procedure Note Procedure: Surgery: patient is responsive to coomands. Feels cold, and wants to sleep. No further rectal bleeding. hematocrit has improved following transfusion. Has anastamotic , transverse colon neoplasm. Should have colonoscopy , consider colectomy to control , blood loss anemia. will wait for g.i.work up.
--- NOTE | 2019-05-28 16:29 | PN ---
Physical Exam: SUBJECTIVE: Patient seen and examined by the bedside. No acute overnight events reported, no bleeding. OBJECTIVE: Vital Signs Period Temp Pulse Resp BP Sys/Pisano Pulse Ox Last 24 Hr 96.5 F-98.2 F 75-102 11-23 84-133/62-95 100-100 GENERAL: The patient is AOx1, awake, cooperative HEAD: Normal with no signs of trauma. NECK: Trachea midline, full range of motion, supple. LUNGS: Breath sounds equal, clear to auscultation bilaterally, no wheezes, no crackles, no accessory muscle use. HEART: Regular rate and rhythm, S1, S2 without murmur, rub or gallop. ABDOMEN: Soft, nontender, nondistended, normoactive bowel sounds, no guarding, no rebound, no hepatosplenomegaly, no masses. EXTREMITIES: 2+ pulses, warm, well-perfused, no edema. NEUROLOGICAL: Cranial nerves II through XII grossly intact. Normal speech, gait not observed. PSYCH: Normal mood, normal affect. SKIN: Warm, dry, normal turgor, no rashes or lesions noted Laboratory Results - last 24 hr 05/27/19 05/27/19 05/28/19 10:00 18:55 03:00 WBC 13.4 H 10.5 H RBC 3.11 L 3.84 Hgb 7.1 L 10.3 L Hct 24.1 L 31.5 L D MCV 77.4 L 82.0 MCH 22.9 L 26.9 D MCHC 29.6 L 32.8 RDW 20.9 H 20.8 H Plt Count 191 D 142 D MPV 8.1 D 8.6 Absolute Neuts (auto) Neutrophils % Lymphocytes % Monocytes % Eosinophils % Basophils % Nucleated RBC % Sodium Potassium Chloride Carbon Dioxide Anion Gap BUN Creatinine Est GFR (CKD-EPI)AfAm Est GFR (CKD-EPI)NonAf Random Glucose Calcium Total Bilirubin AST ALT Alkaline Phosphatase Total Protein Albumin Blood Type O POSITIVE Antibody Screen Negative Crossmatch See Detail 05/28/19 05/28/19 05:30 05:30 WBC 9.3 RBC 3.63 Hgb 9.9 L Hct 29.5 L MCV 81.2 MCH 27.2 MCHC 33.5 RDW 20.2 H Plt Count 136 MPV 8.6 Absolute Neuts (auto) 6.0 Neutrophils % 63.9 Lymphocytes % 23.1 Monocytes % 10.6 H Eosinophils % 1.9 Basophils % 0.5 Nucleated RBC % 0 Sodium 147 H Potassium 4.6 Chloride 117 H Carbon Dioxide 25 Anion Gap 5 L BUN 42.7 H Creatinine 1.1 Est GFR (CKD-EPI)AfAm 52.65 Est GFR (CKD-EPI)NonAf 45.42 Random Glucose 85 Calcium 7.9 L Total Bilirubin 0.7 AST 14 L ALT 11 L Alkaline Phosphatase 52 Total Protein 5.3 L Albumin 2.0 L Blood Type Antibody Screen Crossmatch Active Medications Generic Name Dose Route Start Last Admin Trade Name Freq PRN Reason Stop Dose Admin Albuterol Sulfate 1 amp 05/27/19 14:00 Ventolin 0.083% Nebulizer Soln - NEB Q6H PRN SHORT OF BREATH/WHEEZING Atorvastatin Calcium 10 mg 05/27/19 22:00 05/27/19 23:14 Lipitor - PO Not Given HS [facility] Budesonide/Formoterol Fumarate 2 puff 05/27/19 22:00 05/28/19 09:55 Symbicort 80/4.5mcg - IH Not Given BID [facility] Chlorhexidine Gluconate 1 applic 05/27/19 22:00 05/27/19 23:14 Hibiclens For Decolonization - TP 1 applic HS [facility] Administration Multi-Ingredient Ointment 1 applic 05/27/19 22:00 05/28/19 09:55 Zinc Oxide TP 1 applic BID [facility] Administration Mupirocin 1 applic 05/27/19 22:00 05/28/19 09:55 Bactroban Ointment (For Decolonization) - NS 06/01/19 21:59 1 applic BID [facility] Administration Pantoprazole Sodium 40 mg 05/28/19 10:00 05/28/19 09:55 Protonix Iv IVPUSH 40 mg DAILY [facility] Administration Sertraline HCl 50 mg 05/28/19 10:00 05/28/19 09:56 Zoloft - PO Not Given DAILY [facility] ASSESSMENT/PLAN: This is an 88 year old female with PMH significant for Colon CA, Afib (no AC), COPD (O2 PRN). She was brought to the ER from her [facility] for evaluation of reported hematochezia. 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 CTA not possible because of poor renal function - Given 1 unit PRBC overnight - H&H went from 10.3/31.5 to 9.9/29.5. Will repeat CBC today. - Protonix 40mg IV OD - Lipitor 10mg PO HS - Possible colonoscopy, colectomy #Renal - BUN/Cr down from 52.4/1.4 yesterday to 42.7/1.1 today #FEN - NPO until cleared by GI #DVT PE - No prophylaxis at the moment due to bleeding risk #Code Status - Full Code - Son is lavonne guardian #Dispo - Monitor H&H Visit type - Emergency Visit Emergency Visit: Yes ED Registration Date: 05/27/19 Care time: The patient presented to the Emergency Department on the above date and was hospitalized for further evaluation of their emergent condition. - New Patient This patient is new to me today: Yes Date on this admission: 05/29/19 - Critical Care Critical Care patient: Yes Total Critical Care Time (in minutes): 36 Critical Care Statement: The care of this patient involved high complexity decision making to prevent further life threatening deterioration of the patient 's condition and/or to evaluate & treat vital organ system(s) failure or risk of failure. ATTENDING PHYSICIAN STATEMENT I saw and evaluated the patient. I reviewed the resident's note and discussed the case with the resident. I agree with the resident's findings and plan as documented. SUBJECTIVE: OBJECTIVE: ASSESSMENT AND PLAN:
--- NOTE | 2019-05-28 16:57 | PN ---
Progress Note (short form) - Note Progress Note: Patient seen and examined Labs reviewed No further bleeding Vital Signs Temp 98.1 F 05/28/19 10:00 Pulse 99 H 05/28/19 14:00 Resp 18 05/28/19 14:00 BP 133/84 05/28/19 14:00 Pulse Ox 100 05/28/19 12:00 NAD Soft NT ND CBC, BMP 05/28/19 05:30 05/28/19 05:30 Impression: rectal bleeding likely from known colonic adenocarcinoma. Previously HCP refused surgery. Would follow up with HCP. In the interim, trend hgb and watch for rebleeding.
[2019-05-28 18:50] LABS: BASO % 0.6 % (0-2.0); EOS % 2.5 % (0-4.5); HEMOGLOBIN 9.8 GM/dL (10.7-15.3); LYMPH % 27.1 % (8-40); MCH 26.3 pg (25.7-33.7); MCHC 31.6 g/dl (32.0-36.0); MEAN CELL VOLUME 83.1 fl (80-96); MEAN PLT VOLUME 8.9 fl (7.5-11.1); MONO % 15.2 % (3.8-10.2); NEUT % 54.6 % (42.8-82.8); PLATELET COUNT 143 K/MM3 (134-434); RBC 3.73 M/mm3 (3.60-5.2); RDW 20.2 % (11.6-15.6); WHITE BLOOD COUNT 8.9 K/mm3 (4.0-10.0)
[2019-05-28] MEDS: ATORVASTATIN CA 10 MG TABLET (FP) PO SCH (22:34)
[2019-05-28] MEDS: CHLORHEXIDINE GLUCONATE 4% CLEANSER FOR DECOLONIZATION TP SCH (22:34)
[2019-05-29 07:07] LABS: BASO % 0.8 % (0-2.0); EOS % 3.5 % (0-4.5); HEMATOCRIT 29.3 % (32.4-45.2); HEMOGLOBIN 9.4 GM/dL (10.7-15.3); LYMPH % 27.1 % (8-40); MCH 26.5 pg (25.7-33.7); MCHC 32.3 g/dl (32.0-36.0); MEAN CELL VOLUME 82.1 fl (80-96); MONO % 12.3 % (3.8-10.2); NEUT % 56.3 % (42.8-82.8); PLATELET COUNT 148 K/MM3 (134-434); RBC 3.56 M/mm3 (3.60-5.2); RDW 20.6 % (11.6-15.6); WHITE BLOOD COUNT 7.6 K/mm3 (4.0-10.0)
[2019-05-29 07:38] LABS: ALBUMIN 2.2 g/dl (3.4-5.0); BILIRUBIN,TOTAL 0.5 mg/dL (0.2-1); BLOOD UREA NITROGEN 33.6 mg/dL (7-18); CALCIUM 8.5 mg/dL (8.5-10.1); CREATININE 1.2 mg/dL (0.55-1.3); POTASSIUM 4.4 mmol/L (3.5-5.1); TOT PROT 5.9 g/dl (6.4-8.2)
[2019-05-29] MEDS: MUPIROCIN 2% TOPICAL OINTMENT FOR DECOLONIZATION NS SCH (10:10)
[2019-05-29] MEDS: BUDESONIDE/FORMETEROL FUMARATE 80/4.5 mcg INHALER IH SCH ×2 (10:10→22:05)
[2019-05-29] MEDS: ZINC OXIDE 20% TOPICAL OINTMENT 30 GM TUBE TP SCH ×2 (10:11→22:05)
[2019-05-29] MEDS: PANTOPRAZOLE SODIUM 40 MG VIAL IVPUSH SCH (10:14)
[2019-05-29] MEDS: SERTRALINE HCL 50 MG TABLET (FP) PO SCH (10:14)
--- NOTE | 2019-05-29 10:35 | PN ---
Progress Note (short form) - Note Progress Note: Events noted no bleeding overnight awake C/o pain in abdomen Vital Signs - 24 hr 05/28/19 05/28/19 05/28/19 12:00 14:00 16:00 Temperature Pulse Rate 99 H 99 H 96 H Respiratory 16 18 21 H Rate Blood Pressure 112/78 133/84 115/74 O2 Sat by Pulse 100 Oximetry (%) 05/28/19 05/28/19 05/28/19 18:00 20:00 22:00 Temperature 97.6 F Pulse Rate 95 H 96 H 96 H Respiratory 16 22 H 20 Rate Blood Pressure 111/79 113/81 117/79 O2 Sat by Pulse 100 Oximetry (%) 05/29/19 05/29/19 05/29/19 00:00 02:00 04:00 Temperature 97.4 F L Pulse Rate 94 H 97 H 98 H Respiratory 22 H 16 12 Rate Blood Pressure 112/74 134/102 H 133/84 O2 Sat by Pulse Oximetry (%) 05/29/19 05/29/19 05/29/19 06:00 08:00 10:00 Temperature 97.3 F L Pulse Rate 98 H 96 H 97 H Respiratory 14 22 H 18 Rate Blood Pressure 125/85 122/84 137/83 O2 Sat by Pulse 100 Oximetry (%) Current Medications Generic Name Dose Route Start Last Admin Trade Name Freq PRN Reason Stop Dose Admin Albuterol Sulfate 1 amp 05/27/19 14:00 Ventolin 0.083% Nebulizer Soln - NEB Q6H PRN SHORT OF BREATH/WHEEZING Atorvastatin Calcium 10 mg 05/27/19 22:00 05/28/19 22:34 Lipitor - PO 10 mg HS [facility] Administration Budesonide/Formoterol Fumarate 2 puff 05/27/19 22:00 05/29/19 10:10 Symbicort 80/4.5mcg - IH 2 puff BID [facility] Administration Chlorhexidine Gluconate 1 applic 05/27/19 22:00 05/28/19 22:34 Hibiclens For Decolonization - TP 1 applic HS [facility] Administration Multi-Ingredient Ointment 1 applic 05/27/19 22:00 05/29/19 10:11 Zinc Oxide TP 1 applic BID [facility] Administration Mupirocin 1 applic 05/27/19 22:00 05/29/19 10:10 Bactroban Ointment (For Decolonization) - NS 06/01/19 21:59 1 applic BID [facility] Administration Pantoprazole Sodium 40 mg 05/28/19 10:00 05/29/19 10:14 Protonix Iv IVPUSH 40 mg DAILY [facility] Administration Sertraline HCl 50 mg 05/28/19 10:00 05/29/19 10:14 Zoloft - PO 50 mg DAILY [facility] Administration Laboratory Results - last 24 hr 05/28/19 05/29/19 05/29/19 18:30 05:50 05:50 WBC 8.9 7.6 RBC 3.73 3.56 L Hgb 9.8 L 9.4 L Hct 31.0 L 29.3 L MCV 83.1 82.1 MCH 26.3 26.5 MCHC 31.6 L 32.3 RDW 20.2 H 20.6 H Plt Count 143 148 MPV 8.9 9.0 Absolute Neuts (auto) 4.8 4.3 Neutrophils % 54.6 56.3 Lymphocytes % 27.1 27.1 Monocytes % 15.2 H 12.3 H Eosinophils % 2.5 3.5 Basophils % 0.6 0.8 Nucleated RBC % 0 1 H Sodium 151 H Potassium 4.4 Chloride 121 H Carbon Dioxide 25 Anion Gap 5 L BUN 33.6 H Creatinine 1.2 Est GFR (CKD-EPI)AfAm 47.39 Est GFR (CKD-EPI)NonAf 40.89 Random Glucose 69 L Calcium 8.5 Total Bilirubin 0.5 AST 15 ALT 10 L Alkaline Phosphatase 52 Total Protein 5.9 L Albumin 2.2 L s1 S2 RRR Lungs decreased Abd- soft, tender all areas edema trace PLAN Stable HCT stable Protonix Colonoscopy by Dr Cardoso 10/24 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 Full code for now spoke with Legal guardian-- pratima Mccauley today -- she will be speaking with munitions handler supervisor with regards to further care I spoke with Dr Goodrich yesterday-- considering palliative resection of bowel - not sure if pt may withstand this surgery Problem List - Problems (1) GI (gastrointestinal bleed) Code(s): K92.2 - GASTROINTESTINAL HEMORRHAGE, UNSPECIFIED Qualifiers: GI bleed type/associated pathology: unspecified gastrointestinal hemorrhage type Qualified Code(s): K92.2 - Gastrointestinal hemorrhage, unspecified (2) Adenocarcinoma of transverse colon Code(s): C18.4 - MALIGNANT NEOPLASM OF TRANSVERSE COLON (3) Anemia requiring transfusions Code(s): D64.9 - ANEMIA, UNSPECIFIED (4) Chronic atrial fibrillation Code(s): I48.2 - CHRONIC ATRIAL FIBRILLATION * DO NOT USE * (5) Dementia Code(s): F03.90 - UNSPECIFIED DEMENTIA WITHOUT BEHAVIORAL DISTURBANCE
--- NOTE | 2019-05-29 11:06 | PN ---
Physical Exam: SUBJECTIVE: Patient seen and examined at bedside. No acute events overnight. Patient without any acute complaints. Spoke with alfa Velez with transfer to med surg today and start on clear liquid diet. OBJECTIVE: Vital Signs Period Temp Pulse Resp BP Sys/Pisano Pulse Ox Last 24 Hr 97.3 F-97.6 F 94-99 12-22 111-137/74-102 100-100 GENERAL: AAOx1, awake, cooperative, NAD HEAD: Normal with no signs of trauma. EYES: PERRL, EOMI ENT: dry mucous membranes NECK: Trachea midline, full range of motion, supple. LUNGS: Breath sounds equal, clear to auscultation bilaterally, no wheezes, no crackles, no accessory muscle use. HEART: tachycardic, S1, S2 without murmur, rub or gallop. ABDOMEN: Soft, nontender, nondistended, normoactive bowel sounds, no guarding, no rebound, no hepatosplenomegaly, no masses. EXTREMITIES: 2+ pulses, warm, well-perfused, no edema. NEUROLOGICAL: 5/5 strength upper and lower extremities, grossly normal sensation. Normal speech, gait not observed. PSYCH: Normal mood, normal affect. SKIN: Warm, dry, normal turgor Laboratory Results - last 24 hr 05/28/19 05/29/19 05/29/19 18:30 05:50 05:50 WBC 8.9 7.6 RBC 3.73 3.56 L Hgb 9.8 L 9.4 L Hct 31.0 L 29.3 L MCV 83.1 82.1 MCH 26.3 26.5 MCHC 31.6 L 32.3 RDW 20.2 H 20.6 H Plt Count 143 148 MPV 8.9 9.0 Absolute Neuts (auto) 4.8 4.3 Neutrophils % 54.6 56.3 Lymphocytes % 27.1 27.1 Monocytes % 15.2 H 12.3 H Eosinophils % 2.5 3.5 Basophils % 0.6 0.8 Nucleated RBC % 0 1 H Sodium 151 H Potassium 4.4 Chloride 121 H Carbon Dioxide 25 Anion Gap 5 L BUN 33.6 H Creatinine 1.2 Est GFR (CKD-EPI)AfAm 47.39 Est GFR (CKD-EPI)NonAf 40.89 Random Glucose 69 L Calcium 8.5 Total Bilirubin 0.5 AST 15 ALT 10 L Alkaline Phosphatase 52 Total Protein 5.9 L Albumin 2.2 L Active Medications Generic Name Dose Route Start Last Admin Trade Name Freq PRN Reason Stop Dose Admin Albuterol Sulfate 1 amp 05/27/19 14:00 Ventolin 0.083% Nebulizer Soln - NEB Q6H PRN SHORT OF BREATH/WHEEZING Atorvastatin Calcium 10 mg 05/27/19 22:00 05/28/19 22:34 Lipitor - PO 10 mg HS [facility] Administration Budesonide/Formoterol Fumarate 2 puff 05/27/19 22:00 05/29/19 10:10 Symbicort 80/4.5mcg - IH 2 puff BID [facility] Administration Chlorhexidine Gluconate 1 applic 05/27/19 22:00 05/28/19 22:34 Hibiclens For Decolonization - TP 1 applic HS [facility] Administration Multi-Ingredient Ointment 1 applic 05/27/19 22:00 05/29/19 10:11 Zinc Oxide TP 1 applic BID [facility] Administration Mupirocin 1 applic 05/27/19 22:00 05/29/19 10:10 Bactroban Ointment (For Decolonization) - NS 06/01/19 21:59 1 applic BID [facility] Administration Pantoprazole Sodium 40 mg 05/28/19 10:00 05/29/19 10:14 Protonix Iv IVPUSH 40 mg DAILY [facility] Administration Sertraline HCl 50 mg 05/28/19 10:00 05/29/19 10:14 Zoloft - PO 50 mg DAILY [facility] Administration ASSESSMENT/PLAN: 88 y/o/f with PMHx of Colon Ca, A fib (no AC), COPD (O2 PRN). She was brought to the ER from her [facility] for evaluation of reported hematochezia. 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 CTA not possible because of poor renal function - Given 1 unit PRBC overnight - H&H down from 9.9/29.5 -> 9.4/29.3. Continue to monitor - Protonix 40mg IV - Lipitor 10mg PO HS - Possible colonoscopy, colectomy #Renal - BUN/Cr improving from 47.2/1.1 -> 33.6/1.2 #FEN - Clear Liquid diet started - 08/09 NS@42mls/hr #DVT PE - No prophylaxis at the moment due to bleeding risk #Code Status - Full Code - Dr. Donnelly spoke with legal guardian - continuing full status code for now but legal guardian will speak with machine records units supervisor with regards to further care #Dispo - Transfer to Med/surg - Continue to monitor H&H Visit type - Emergency Visit Emergency Visit: Yes ED Registration Date: 05/27/19 Care time: The patient presented to the Emergency Department on the above date and was hospitalized for further evaluation of their emergent condition. - New Patient This patient is new to me today: Yes Date on this admission: 05/30/19 - Critical Care Critical Care patient: Yes Total Critical Care Time (in minutes): 36 Critical Care Statement: The care of this patient involved high complexity decision making to prevent further life threatening deterioration of the patient 's condition and/or to evaluate & treat vital organ system(s) failure or risk of failure. ATTENDING PHYSICIAN STATEMENT I saw and evaluated the patient. I reviewed the resident's note and discussed the case with the resident. I agree with the resident's findings and plan as documented. SUBJECTIVE: OBJECTIVE: ASSESSMENT AND PLAN:
[2019-05-29] MEDS ORDERED: SODIUM CHLORIDE 0.45% 1,000 ML IV SCH (12:00)
--- NOTE | 2019-05-29 12:13 | PN ---
Teaching Attending Note Name of Resident: Amberly Canales ATTENDING PHYSICIAN STATEMENT I saw and evaluated the patient. I reviewed the resident's note and discussed the case with the resident. I agree with the resident's findings and plan as documented. SUBJECTIVE: Patient seen and examined in the ICU. Drowsy but arousable. Remains confused. No occult bleeding overnight. Intake & Output 05/26/19 05/27/19 05/28/19 05/29/19 23:59 23:59 23:59 23:59 Intake Total 1550 1900 100 Output Total 500 700 Balance 1050 1200 100 Weight 142 lb 11.2 oz 144 lb 4 oz 144 lb 1 oz Last Vital Signs Temp Pulse Resp BP Pulse Ox 97.3 F L 97 H 18 137/83 100 05/29/19 06:00 05/29/19 10:00 05/29/19 10:00 05/29/19 10:00 05/29/19 08:00 Active Medications Albuterol Sulfate (Ventolin 0.083% Nebulizer Soln -) 1 amp NEB Q6H PRN PRN Reason: SHORT OF BREATH/WHEEZING Atorvastatin Calcium (Lipitor -) 10 mg PO HS [facility] Last Admin: 05/28/19 22:34 Dose: 10 mg Budesonide/Formoterol Fumarate (Symbicort 80/4.5mcg -) 2 puff IH BID [facility] Last Admin: 05/29/19 10:10 Dose: 2 puff Chlorhexidine Gluconate (Hibiclens For Decolonization -) 1 applic TP HS [facility] Last Admin: 05/28/19 22:34 Dose: 1 applic Sodium Chloride (1/2 Normal Saline) 1,000 mls @ 42 mls/hr IV ASDIR GEORGE Multi-Ingredient Ointment (Zinc Oxide) 1 applic TP BID [facility] Last Admin: 05/29/19 10:11 Dose: 1 applic Mupirocin (Bactroban Ointment (For Decolonization) -) 1 applic NS BID [facility] Stop: 06/01/19 21:59 Last Admin: 05/29/19 10:10 Dose: 1 applic Pantoprazole Sodium (Protonix Iv) 40 mg IVPUSH DAILY [facility] Last Admin: 05/29/19 10:14 Dose: 40 mg Sertraline HCl (Zoloft -) 50 mg PO DAILY [facility] Last Admin: 05/29/19 10:14 Dose: 50 mg Constitutional: Yes: Drowsy but arousable, NAD, confused Eyes: Yes: Conjunctiva Clear, Cataracts HENT: Yes: Atraumatic, Normocephalic Neck: Yes: Supple, Trachea Midline Cardiovascular: Yes: Regular Rate and Rhythm, S1, S2 Respiratory: Yes: CTA Bilaterally Gastrointestinal: Yes: Soft, (+) BS, mild tenderness to palpation, no guarding or rigidity Renal/: Yes: Garcia Present Extremities: Yes: WNL Edema: No Peripheral Pulses WNL: Yes Integumentary: Yes: WNL Neurological: Yes: Drowsy but arousable, confused, non-focal Labs: Laboratory Results - last 24 hr 05/28/19 05/29/19 05/29/19 18:30 05:50 05:50 WBC 8.9 7.6 RBC 3.73 3.56 L Hgb 9.8 L 9.4 L Hct 31.0 L 29.3 L MCV 83.1 82.1 MCH 26.3 26.5 MCHC 31.6 L 32.3 RDW 20.2 H 20.6 H Plt Count 143 148 MPV 8.9 9.0 Absolute Neuts (auto) 4.8 4.3 Neutrophils % 54.6 56.3 Lymphocytes % 27.1 27.1 Monocytes % 15.2 H 12.3 H Eosinophils % 2.5 3.5 Basophils % 0.6 0.8 Nucleated RBC % 0 1 H Sodium 151 H Potassium 4.4 Chloride 121 H Carbon Dioxide 25 Anion Gap 5 L BUN 33.6 H Creatinine 1.2 Est GFR (CKD-EPI)AfAm 47.39 Est GFR (CKD-EPI)NonAf 40.89 Random Glucose 69 L Calcium 8.5 Total Bilirubin 0.5 AST 15 ALT 10 L Alkaline Phosphatase 52 Total Protein 5.9 L Albumin 2.2 L Problem List - Problems (1) COPD (chronic obstructive pulmonary disease) Code(s): J44.9 - CHRONIC OBSTRUCTIVE PULMONARY DISEASE, UNSPECIFIED Qualifiers: COPD type: unspecified COPD Qualified Code(s): J44.9 - Chronic obstructive pulmonary disease, unspecified (2) GI (gastrointestinal bleed) Code(s): K92.2 - GASTROINTESTINAL HEMORRHAGE, UNSPECIFIED Qualifiers: GI bleed type/associated pathology: unspecified gastrointestinal hemorrhage type Qualified Code(s): K92.2 - Gastrointestinal hemorrhage, unspecified (3) Adenocarcinoma of transverse colon Code(s): C18.4 - MALIGNANT NEOPLASM OF TRANSVERSE COLON (4) Anemia requiring transfusions Code(s): D64.9 - ANEMIA, UNSPECIFIED (5) Chronic atrial fibrillation Code(s): I48.2 - CHRONIC ATRIAL FIBRILLATION * DO NOT USE * (6) Dementia Code(s): F03.90 - UNSPECIFIED DEMENTIA WITHOUT BEHAVIORAL DISTURBANCE Assessment/Plan Normal transfusion thresholds Maintain large bore IV Serial CBC PPI GI workup ongoing PO when cleared by GI Currently off ABX Floor Dr Goodrich
[2019-05-29] MEDS ORDERED: ALBUTEROL SO4 0.083% IH SOL 2.5 MG/3 ML VIAL.NEB. NEB PRN (14:08)
[2019-05-29 18:17] LABS: HEMATOCRIT 29.7 % (32.4-45.2); HEMOGLOBIN 9.4 GM/dL (10.7-15.3); MCH 26.3 pg (25.7-33.7); MCHC 31.6 g/dl (32.0-36.0); MEAN CELL VOLUME 83.2 fl (80-96); MEAN PLT VOLUME 8.7 fl (7.5-11.1); PLATELET COUNT 158 K/MM3 (134-434); RBC 3.57 M/mm3 (3.60-5.2); RDW 21.1 % (11.6-15.6); WHITE BLOOD COUNT 8.5 K/mm3 (4.0-10.0)
[2019-05-29] MEDS: DEXTROSE 5%-NORMAL SALINE 1,000 ML IV SCH (18:56)
[2019-05-29] MEDS: ATORVASTATIN CA 10 MG TABLET (FP) PO SCH (22:04)
[2019-05-30] MEDS: DEXTROSE 5%-NORMAL SALINE 1,000 ML IV SCH (05:43)
[2019-05-30 07:55] LABS: BASO % 0.3 % (0-2.0); EOS % 2.8 % (0-4.5); HEMOGLOBIN 9.3 GM/dL (10.7-15.3); LYMPH % 22.5 % (8-40); MCH 26.7 pg (25.7-33.7); MCHC 32.1 g/dl (32.0-36.0); MEAN CELL VOLUME 83.1 fl (80-96); MEAN PLT VOLUME 8.7 fl (7.5-11.1); MONO % 11.8 % (3.8-10.2); NEUT % 62.6 % (42.8-82.8); PLATELET COUNT 165 K/MM3 (134-434); RBC 3.49 M/mm3 (3.60-5.2); WHITE BLOOD COUNT 7.2 K/mm3 (4.0-10.0)
[2019-05-30 08:15] LABS: ALBUMIN 2.4 g/dl (3.4-5.0); BILIRUBIN,TOTAL 0.5 mg/dL (0.2-1); BLOOD UREA NITROGEN 27.6 mg/dL (7-18); CALCIUM 8.7 mg/dL (8.5-10.1); CREATININE 1.2 mg/dL (0.55-1.3); POTASSIUM 3.8 mmol/L (3.5-5.1); TOT PROT 6.2 g/dl (6.4-8.2)
[2019-05-30] MEDS: ZINC OXIDE 20% TOPICAL OINTMENT 30 GM TUBE TP SCH ×2 (10:03→21:57)
[2019-05-30] MEDS: BUDESONIDE/FORMETEROL FUMARATE 80/4.5 mcg INHALER IH SCH ×2 (10:03→21:55)
[2019-05-30] MEDS: SERTRALINE HCL 50 MG TABLET (FP) PO SCH (10:03)
[2019-05-30] MEDS: PANTOPRAZOLE SODIUM 40 MG VIAL IVPUSH SCH (10:03)
--- NOTE | 2019-05-30 12:38 | PN ---
Progress Note (short form) - Note Progress Note: Events noted had bled yesterday -- kept NPO now no further bleeding awake C/o pain in abdomen Vital Signs - 24 hr 05/29/19 05/29/19 05/29/19 13:50 14:10 17:50 Temperature 98.4 F 98.7 F Pulse Rate 95 H 97 H Respiratory 20 Rate Blood Pressure 149/87 115/71 O2 Sat by Pulse 100 Oximetry (%) 05/30/19 05/30/19 05:53 09:00 Temperature 98.0 F 98.5 F Pulse Rate 96 H 96 H Respiratory 20 20 Rate Blood Pressure 144/93 143/97 O2 Sat by Pulse 97 Oximetry (%) Current Medications Generic Name Dose Route Start Last Admin Trade Name Freq PRN Reason Stop Dose Admin Albuterol Sulfate 1 amp 05/29/19 14:08 Ventolin 0.083% Nebulizer Soln - NEB Q6H PRN SHORT OF BREATH/WHEEZING Atorvastatin Calcium 10 mg 05/29/19 22:00 05/29/19 22:04 Lipitor - PO 10 mg HS GEORGE Administration Budesonide/Formoterol Fumarate 2 puff 05/29/19 22:00 05/30/19 10:03 Symbicort 80/4.5mcg - IH 2 puff BID GEORGE Administration Dextrose/Sodium Chloride 1,000 mls @ 75 mls/hr 05/29/19 16:45 05/30/19 05:43 D5-Ns - IV 75 mls/hr ASDIR GEORGE Administration Multi-Ingredient Ointment 1 applic 05/29/19 22:00 05/30/19 10:03 Zinc Oxide TP 1 applic BID GEORGE Administration Pantoprazole Sodium 40 mg 05/30/19 10:00 05/30/19 10:03 Protonix Iv IVPUSH 40 mg DAILY GEORGE Administration Sertraline HCl 50 mg 05/30/19 10:00 05/30/19 10:03 Zoloft - PO 50 mg DAILY GEORGE Administration Laboratory Results - last 24 hr 05/29/19 05/30/19 05/30/19 17:20 07:05 07:05 WBC 8.5 7.2 RBC 3.57 L 3.49 L Hgb 9.4 L 9.3 L Hct 29.7 L 29.0 L MCV 83.2 83.1 MCH 26.3 26.7 MCHC 31.6 L 32.1 RDW 21.1 H 21.0 H Plt Count 158 165 MPV 8.7 8.7 Absolute Neuts (auto) 4.5 Neutrophils % 62.6 Lymphocytes % 22.5 Monocytes % 11.8 H Eosinophils % 2.8 Basophils % 0.3 Nucleated RBC % 2 H Sodium 149 H Potassium 3.8 Chloride 119 H Carbon Dioxide 24 Anion Gap 6 L BUN 27.6 H Creatinine 1.2 Est GFR (CKD-EPI)AfAm 47.39 Est GFR (CKD-EPI)NonAf 40.89 Random Glucose 116 H Calcium 8.7 Total Bilirubin 0.5 AST 16 ALT 11 L Alkaline Phosphatase 55 Total Protein 6.2 L Albumin 2.4 L s1 S2 RRR Lungs decreased Abd- soft, tender all areas edema trace PLAN Stable HCT stable Protonix Colonoscopy by Dr Cardoso 10/24 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 Full code for now Cardiology eval for clearance surgery scheduled for Tuesday-- palliative resection of bowel to help stop bleeding keep NPO iv fluids Problem List - Problems (1) GI (gastrointestinal bleed) Code(s): K92.2 - GASTROINTESTINAL HEMORRHAGE, UNSPECIFIED Qualifiers: GI bleed type/associated pathology: unspecified gastrointestinal hemorrhage type Qualified Code(s): K92.2 - Gastrointestinal hemorrhage, unspecified (2) Adenocarcinoma of transverse colon Code(s): C18.4 - MALIGNANT NEOPLASM OF TRANSVERSE COLON (3) Anemia requiring transfusions Code(s): D64.9 - ANEMIA, UNSPECIFIED (4) Chronic atrial fibrillation Code(s): I48.2 - CHRONIC ATRIAL FIBRILLATION * DO NOT USE * (5) Dementia Code(s): F03.90 - UNSPECIFIED DEMENTIA WITHOUT BEHAVIORAL DISTURBANCE
[2019-05-30] MEDS: D5-1/2NS+20 MEQ KCL - 20 MEQ/1,000 ML INFUS.BAG IV SCH (13:48)
--- NOTE | 2019-05-30 14:45 | PN ---
Progress Note, Physician History of Present Illness: PULMONARY ALERT,NO DISTRESS,HAD BLEEDING LAST NIGHT CURRENTLY STABLE. PT FOR PALLATIVE BOWEL RESECTION ON TUESDAY - Current Medication List Current Medications: Active Medications Albuterol Sulfate (Ventolin 0.083% Nebulizer Soln -) 1 amp NEB Q6H PRN PRN Reason: SHORT OF BREATH/WHEEZING Atorvastatin Calcium (Lipitor -) 10 mg PO HS [facility] [place] Last Admin: 05/29/19 22:04 Dose: 10 mg Budesonide/Formoterol Fumarate (Symbicort 80/4.5mcg -) 2 puff IH BID [facility] [place] Last Admin: 05/30/19 10:03 Dose: 2 puff Potassium Chloride/Dextrose/Sod Cl (D5-1/2ns+20 Meq Kcl -) 20 meq in 1,000 mls @ 75 mls/hr IV ASDIR [facility] [place] Last Admin: 05/30/19 13:48 Dose: 75 mls/hr Multi-Ingredient Ointment (Zinc Oxide) 1 applic TP BID [facility] Last Admin: 05/30/19 10:03 Dose: 1 applic Pantoprazole Sodium (Protonix Iv) 40 mg IVPUSH DAILY [facility] Last Admin: 05/30/19 10:03 Dose: 40 mg Sertraline HCl (Zoloft -) 50 mg PO DAILY [facility] [place] Last Admin: 05/30/19 10:03 Dose: 50 mg - Objective Vital Signs: Vital Signs Temperature 98.5 F 05/30/19 09:00 Pulse Rate 96 H 05/30/19 09:00 Respiratory Rate 20 05/30/19 09:00 Blood Pressure 143/97 05/30/19 09:00 O2 Sat by Pulse Oximetry (%) 97 05/30/19 09:00 Constitutional: Yes: Well Nourished, Calm Eyes: Yes: WNL HENT: Yes: WNL Neck: Yes: WNL Cardiovascular: Yes: Regular Rate and Rhythm, S1, S2 Respiratory: Yes: CTA Bilaterally Gastrointestinal: Yes: Normal Bowel Sounds, Soft Extremities: Yes: WNL Edema: No Labs: CBC, BMP 05/30/19 07:05 05/30/19 07:05 Assessment/Plan Problem List - Problems (1) COPD (chronic obstructive pulmonary disease) Code(s): J44.9 - CHRONIC OBSTRUCTIVE PULMONARY DISEASE, UNSPECIFIED Qualifiers: COPD type: unspecified COPD Qualified Code(s): J44.9 - Chronic obstructive pulmonary disease, unspecified (2) GI (gastrointestinal bleed) Code(s): K92.2 - GASTROINTESTINAL HEMORRHAGE, UNSPECIFIED Qualifiers: GI bleed type/associated pathology: unspecified gastrointestinal hemorrhage type Qualified Code(s): K92.2 - Gastrointestinal hemorrhage, unspecified (3) Adenocarcinoma of transverse colon Code(s): C18.4 - MALIGNANT NEOPLASM OF TRANSVERSE COLON (4) Anemia requiring transfusions Code(s): D64.9 - ANEMIA, UNSPECIFIED (5) Chronic atrial fibrillation Code(s): I48.2 - CHRONIC ATRIAL FIBRILLATION * DO NOT USE * (6) Dementia Code(s): F03.90 - UNSPECIFIED DEMENTIA WITHOUT BEHAVIORAL DISTURBANCE Assessment/Plan Normal transfusion thresholds Maintain large bore IV Serial CBC PPI Pallative bowel resection on Tuesday DR SHEFFIELD
--- NOTE | 2019-05-30 14:56 | PN ---
Progress Note, Physician - Current Medication List Current Medications: Active Medications Albuterol Sulfate (Ventolin 0.083% Nebulizer Soln -) 1 amp NEB Q6H PRN PRN Reason: SHORT OF BREATH/WHEEZING Atorvastatin Calcium (Lipitor -) 10 mg PO HS [facility] Last Admin: 05/29/19 22:04 Dose: 10 mg Budesonide/Formoterol Fumarate (Symbicort 80/4.5mcg -) 2 puff IH BID [facility] Last Admin: 05/30/19 10:03 Dose: 2 puff Potassium Chloride/Dextrose/Sod Cl (D5-1/2ns+20 Meq Kcl -) 20 meq in 1,000 mls @ 75 mls/hr IV ASDIR [facility] Last Admin: 05/30/19 13:48 Dose: 75 mls/hr Multi-Ingredient Ointment (Zinc Oxide) 1 applic TP BID [facility] Last Admin: 05/30/19 10:03 Dose: 1 applic Pantoprazole Sodium (Protonix Iv) 40 mg IVPUSH DAILY [facility] Last Admin: 05/30/19 10:03 Dose: 40 mg Sertraline HCl (Zoloft -) 50 mg PO DAILY [facility] Last Admin: 05/30/19 10:03 Dose: 50 mg - Objective Vital Signs: Vital Signs Temperature 98.9 F 05/30/19 14:48 Pulse Rate 97 H 05/30/19 14:48 Respiratory Rate 20 05/30/19 14:48 Blood Pressure 149/90 05/30/19 14:48 O2 Sat by Pulse Oximetry (%) 97 05/30/19 09:00 Labs: CBC, BMP 05/30/19 07:05 05/30/19 07:05 Problem List - Problems (1) Hematochezia Code(s): K92.1 - MELENA (2) Adenocarcinoma of transverse colon Code(s): C18.4 - MALIGNANT NEOPLASM OF TRANSVERSE COLON (3) Dementia Code(s): F03.90 - UNSPECIFIED DEMENTIA WITHOUT BEHAVIORAL DISTURBANCE (4) Chronic atrial fibrillation Code(s): I48.2 - CHRONIC ATRIAL FIBRILLATION * DO NOT USE * (5) COPD (chronic obstructive pulmonary disease) Code(s): J44.9 - CHRONIC OBSTRUCTIVE PULMONARY DISEASE, UNSPECIFIED Qualifiers: COPD type: unspecified COPD Qualified Code(s): J44.9 - Chronic obstructive pulmonary disease, unspecified Assessment/Plan Surgery : Patient is hemodynamically stable. Has a known mass at the iliotransverse anastamosis, possible source of bleeding. Will plan , diagnostic laparoscopy , possible laparotomy , and resection of tumor. she is scheduled Patient has legal guardian , but no family member. disscussed with the primary physician, who has spoken to the respective alliance party.
--- NOTE | 2019-05-30 15:47 | CON.CARD ---
Consult Consult Specialty:: Cardiology Referred by:: Yovanny Khan Reason for Consultation:: Preop. Afib - History of Present Illness Chief Complaint: GI bleed History of Present Illness: 88 year old female with a pmhx of afib, copd, and known adenocarcinoma distal to ileocolonic anastomosis admitted with recurrent GI bleed. Believed to be due to malignancy. No chest pain, sob, or palpitations. No pnd , orthopnea, or edema. Planned for possible surgical intervention. Echo 2018 with normal LVEF, mild MR, mild dilated aortic root EKG: afib/flutter with nonspecific T wave abnormalities. - History Source History Provided By: Patient, Medical Record - Past Medical History CHICKEN TENDER: Yes: Alzheimer's, Dementia Cardio/Vascular: Yes: AFIB, CHF, Mitral Insufficiency Pulmonary: Yes: COPD Gastrointestinal: Yes: Cancer Hepatobiliary: Yes: Cholelithiasis Renal/: Yes: Renal Calculi Psych: Yes: Bipolar, Depression - Past Surgical History Past Surgical History: Yes: Colectomy - Alcohol/Substance Use Hx Alcohol Use: No History of Substance Use: reports: None - Smoking History Smoking history: Unknown if ever smoked Have you smoked in the past 12 months: No - Social History ADL: Support Services History of Recent Travel: No Home Medications - Allergies Allergies/Adverse Reactions: Allergies Allergy/AdvReac Type Severity Reaction Status Date / Time morphine Allergy Verified 10/07/18 02:23 Penicillins Allergy Verified 10/07/18 02:23 shellfish derived Allergy Verified 10/07/18 02:23 - Home Medications Home Medications: Ambulatory Orders Albuterol 0.083% Nebulizer Ani [Ventolin 0.083% Nebulizer Soln -] 1 amp NEB PRN 03/16/18 Budesonide/Formeterol Fumarate [SYMBICORT 80/4.5mcg -] 2 puff IH BID 03/16/18 Lisinopril 10 mg PO DAILY 03/16/18 Sertraline HCl [Zoloft -] 50 mg PO DAILY 03/16/18 Simvastatin [Zocor -] 10 mg PO HS 03/16/18 Zinc Gluconate [Zinc] 50 mg PO DAILY 03/16/18 Carvedilol [Coreg -] 12.5 mg PO BID 03/18/18 Pantoprazole Sodium [Protonix] 40 mg PO BID #30 tablet. 10/13/18 Zinc Oxide 1 applic TP BID tube 10/13/18 Ascorbic Acid [Vitamin C -] 500 mg PO BID tablet 04/13/19 Magnesium Hydroxide [Milk of Magnesia] 30 ml PO ASDIR PRN 05/27/19 Polyethylene Glycol 3350 [Miralax (For Daily Use) -] 17 gm PO DAILY 05/27/19 Vital Signs: Vital Signs Temperature 98.9 F 05/30/19 14:48 Pulse Rate 97 H 05/30/19 14:48 Respiratory Rate 20 05/30/19 14:48 Blood Pressure 149/90 05/30/19 14:48 O2 Sat by Pulse Oximetry (%) 97 05/30/19 09:00 Constitutional: Yes: No Distress Neck: Yes: Supple Respiratory: Yes: CTA Bilaterally Gastrointestinal: Yes: Soft Cardiovascular: Yes: Pulse Irregular JVD: No Carotid Bruit: No PMI: Non-Displaced Heart Sounds: Yes: S1, S2 Murmur: No: Systolic Murmur Edema: No - Other Data Labs, Other Data: CBC, BMP 05/30/19 07:05 05/30/19 07:05 Imaging - Results Chest X-ray: Report Reviewed EKG: Image Reviewed Assessment/Plan 88 year old female with a pmhx of afib, copd, and known adenocarcinoma distal to ileocolonic anastomosis admitted with recurrent GI bleed. Believed to be due to malignancy. No chest pain, sob, or palpitations. No pnd , orthopnea, or edema. Planned for possible surgical intervention. Echo 2018 with normal LVEF, mild MR, mild dilated aortic root EKG: afib/flutter with nonspecific T wave abnormalities. 1) Patient with recurrent GI bleed from malignancy with plan for surgical intervention. Cardiac risk factors are afib and copd. Transfuse as needed. No signs of significant chf on exam. No chest pain EKG with afib/flutter relatively rate controlled 90s with nonspecific T wave abnormalities Echo 2018 with normal LVEF and no severe valve disease. No further cardiac testing is indicated at this time. No cardiac contraindications to surgery. Off anticoagulation due to bleeding. Right now not on any htn meds but if BP allows consider restarting low dose beta elayne such as metoprolol. Will sign off. Please call back as needed.
[2019-05-30] MEDS: METOPROLOL TARTRATE 25 MG TABLET (FP) PO SCH ×2 (17:55→21:59)
[2019-05-30] MEDS ORDERED: ACETAMINOPHEN 325 MG TABLET (FP) PO PRN (19:05)
[2019-05-30] MEDS: ATORVASTATIN CA 10 MG TABLET (FP) PO SCH (21:59)
[2019-05-31] MEDS: D5-1/2NS+20 MEQ KCL - 20 MEQ/1,000 ML INFUS.BAG IV SCH (02:45)
[2019-05-31] MEDS: BUDESONIDE/FORMETEROL FUMARATE 80/4.5 mcg INHALER IH SCH ×2 (09:50→21:26)
[2019-05-31] MEDS: PANTOPRAZOLE SODIUM 40 MG VIAL IVPUSH SCH (09:50)
[2019-05-31] MEDS: SERTRALINE HCL 50 MG TABLET (FP) PO SCH (09:50)
[2019-05-31] MEDS: METOPROLOL TARTRATE 25 MG TABLET (FP) PO SCH ×2 (09:50→21:26)
[2019-05-31] MEDS: ZINC OXIDE 20% TOPICAL OINTMENT 30 GM TUBE TP SCH ×2 (09:51→21:27)
--- NOTE | 2019-05-31 10:43 | PN ---
Progress Note (short form) - Note Progress Note: PULMONARY Denies shortness of breath. c/o abdominal pain. Vital Signs Period Temp Pulse Resp BP Sys/Pisano Pulse Ox Last 24 Hr 98 F-98.9 F 95-132 20-20 138-149/86-96 99 Gen: NAD at rest Heart: RRR Lung: decreased breath sounds at the bases Abd: softly distended, mild TTP Ext: no edema CBC, BMP 05/30/19 07:05 05/30/19 07:05 Active Medications Acetaminophen (Tylenol -) 650 mg PO Q6H PRN PRN Reason: Fever Or Pain Albuterol Sulfate (Ventolin 0.083% Nebulizer Soln -) 1 amp NEB Q6H PRN PRN Reason: SHORT OF BREATH/WHEEZING Atorvastatin Calcium (Lipitor -) 10 mg PO HS [facility] Last Admin: 05/30/19 21:59 Dose: 10 mg Budesonide/Formoterol Fumarate (Symbicort 80/4.5mcg -) 2 puff IH BID [facility] Last Admin: 05/31/19 09:50 Dose: 2 puff Potassium Chloride/Dextrose/Sod Cl (D5-1/2ns+20 Meq Kcl -) 20 meq in 1,000 mls @ 75 mls/hr IV ASDIR [facility] Last Admin: 05/31/19 02:45 Dose: 75 mls/hr Metoprolol Tartrate (Lopressor -) 25 mg PO BID [facility] Last Admin: 05/31/19 09:50 Dose: 25 mg Multi-Ingredient Ointment (Zinc Oxide) 1 applic TP BID [facility] Last Admin: 05/31/19 09:51 Dose: 1 applic Pantoprazole Sodium (Protonix Iv) 40 mg IVPUSH DAILY [facility] Last Admin: 05/31/19 09:50 Dose: 40 mg Sertraline HCl (Zoloft -) 50 mg PO DAILY [facility] Last Admin: 05/31/19 09:50 Dose: 50 mg A/P GI Bleed Acute Blood Loss Anemia Colon Cancer Atrial Fibrillation COPD - monitor H/H - transfuse as needed - for palliative resection tomorrow - inhaled bronchodilators - DVT prophylaxis
--- NOTE | 2019-05-31 10:49 | PN ---
Progress Note (short form) - Note Progress Note: Events noted had bled yesterday -- kept NPO now no further bleeding awake no pain in abdomen Vital Signs - 24 hr 05/30/19 05/30/19 05/30/19 14:48 18:00 18:15 Temperature 98.9 F 98 F Pulse Rate 97 H 132 H 127 H Respiratory 20 20 20 Rate Blood Pressure 149/90 139/87 138/86 O2 Sat by Pulse Oximetry (%) 05/30/19 05/30/19 05/31/19 18:57 21:00 02:00 Temperature 98.4 F Pulse Rate 118 H 95 H Respiratory 20 Rate Blood Pressure 141/93 144/96 O2 Sat by Pulse 99 Oximetry (%) 05/31/19 05/31/19 06:33 10:00 Temperature 98.2 F 99.4 F Pulse Rate 95 H 94 H Respiratory 20 20 Rate Blood Pressure 142/96 138/90 O2 Sat by Pulse Oximetry (%) Current Medications Generic Name Dose Route Start Last Admin Trade Name Freq PRN Reason Stop Dose Admin Acetaminophen 650 mg 05/30/19 19:05 Tylenol - PO Q6H PRN Fever Or Pain Albuterol Sulfate 1 amp 05/29/19 14:08 Ventolin 0.083% Nebulizer Soln - NEB Q6H PRN SHORT OF BREATH/WHEEZING Atorvastatin Calcium 10 mg 05/29/19 22:00 05/30/19 21:59 Lipitor - PO 10 mg HS GEORGE Administration Budesonide/Formoterol Fumarate 2 puff 05/29/19 22:00 05/31/19 09:50 Symbicort 80/4.5mcg - IH 2 puff BID GEORGE Administration Potassium Chloride/Dextrose/Sod Cl 20 meq in 1,000 mls @ 75 mls/hr 05/30/19 12 :45 05/31/19 02:45 D5-1/2ns+20 Meq Kcl - IV 75 mls/hr ASDIR GEORGE Administration Metoprolol Tartrate 25 mg 05/30/19 17:56 05/31/19 09:50 Lopressor - PO 25 mg BID GEORGE Administration Multi-Ingredient Ointment 1 applic 05/29/19 22:00 05/31/19 09:51 Zinc Oxide TP 1 applic BID GEORGE Administration Pantoprazole Sodium 40 mg 05/30/19 10:00 05/31/19 09:50 Protonix Iv IVPUSH 40 mg DAILY GEORGE Administration Sertraline HCl 50 mg 05/30/19 10:00 05/31/19 09:50 Zoloft - PO 50 mg DAILY GEORGE Administration Laboratory Results - last 24 hr 05/27/19 10:00 Blood Type O POSITIVE Antibody Screen Negative Crossmatch See Detail s1 S2 RRR Lungs decreased Abd- soft, tender all areas edema trace PLAN Stable HCT stable Protonix Colonoscopy by Dr Cardoso 10/24 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 Full code for now Cardiology eval for clearance -->cleared by cardiology surgery scheduled for Tuesday-- palliative resection of bowel to help stop bleeding keep NPO iv fluids spoke with Hoda Mccullough-- casino cage supervisor - legal guardian -- [phone]-- explained that pt will need this surgery to prevent rebleeding--I spoke with Dr hennessy-- he will be calling her today Problem List - Problems (1) GI (gastrointestinal bleed) Code(s): K92.2 - GASTROINTESTINAL HEMORRHAGE, UNSPECIFIED Qualifiers: GI bleed type/associated pathology: unspecified gastrointestinal hemorrhage type Qualified Code(s): K92.2 - Gastrointestinal hemorrhage, unspecified (2) Adenocarcinoma of transverse colon Code(s): C18.4 - MALIGNANT NEOPLASM OF TRANSVERSE COLON (3) Anemia requiring transfusions Code(s): D64.9 - ANEMIA, UNSPECIFIED (4) Chronic atrial fibrillation Code(s): I48.2 - CHRONIC ATRIAL FIBRILLATION * DO NOT USE * (5) Dementia Code(s): F03.90 - UNSPECIFIED DEMENTIA WITHOUT BEHAVIORAL DISTURBANCE
--- NOTE | 2019-05-31 16:31 | PN ---
Progress Note, Physician - Current Medication List Current Medications: Active Medications Acetaminophen (Tylenol -) 650 mg PO Q6H PRN PRN Reason: Fever Or Pain Albuterol Sulfate (Ventolin 0.083% Nebulizer Soln -) 1 amp NEB Q6H PRN PRN Reason: SHORT OF BREATH/WHEEZING Atorvastatin Calcium (Lipitor -) 10 mg PO HS [facility] Last Admin: 05/30/19 21:59 Dose: 10 mg Budesonide/Formoterol Fumarate (Symbicort 80/4.5mcg -) 2 puff IH BID [facility] Last Admin: 05/31/19 09:50 Dose: 2 puff Potassium Chloride/Dextrose/Sod Cl (D5-1/2ns+20 Meq Kcl -) 20 meq in 1,000 mls @ 75 mls/hr IV ASDIR [facility] Last Admin: 05/31/19 02:45 Dose: 75 mls/hr Metoprolol Tartrate (Lopressor -) 25 mg PO BID [facility] Last Admin: 05/31/19 09:50 Dose: 25 mg Multi-Ingredient Ointment (Zinc Oxide) 1 applic TP BID [facility] Last Admin: 05/31/19 09:51 Dose: 1 applic Pantoprazole Sodium (Protonix Iv) 40 mg IVPUSH DAILY [facility] Last Admin: 05/31/19 09:50 Dose: 40 mg Sertraline HCl (Zoloft -) 50 mg PO DAILY [facility] Last Admin: 05/31/19 09:50 Dose: 50 mg - Objective Vital Signs: Vital Signs Temperature 99.6 F 05/31/19 13:25 Pulse Rate 95 H 05/31/19 13:25 Respiratory Rate 17 05/31/19 13:25 Blood Pressure 121/81 05/31/19 13:25 O2 Sat by Pulse Oximetry (%) 96 05/31/19 09:00 Labs: CBC, BMP 05/30/19 07:05 05/30/19 07:05 Problem List - Problems (1) Hematochezia Code(s): K92.1 - MELENA (2) Adenocarcinoma of transverse colon Code(s): C18.4 - MALIGNANT NEOPLASM OF TRANSVERSE COLON (3) Dementia Code(s): F03.90 - UNSPECIFIED DEMENTIA WITHOUT BEHAVIORAL DISTURBANCE (4) Chronic atrial fibrillation Code(s): I48.2 - CHRONIC ATRIAL FIBRILLATION * DO NOT USE * (5) COPD (chronic obstructive pulmonary disease) Code(s): J44.9 - CHRONIC OBSTRUCTIVE PULMONARY DISEASE, UNSPECIFIED Qualifiers: COPD type: unspecified COPD Qualified Code(s): J44.9 - Chronic obstructive pulmonary disease, unspecified Assessment/Plan Patient for palliative resection of recurrent tumor tomorrow. I have spoken to the healthcare proxy and she has consented for laparoscopy, possible laparotomy , and bowel resection, to be done tomorrow. Bowel cleansing done.
[2019-05-31] MEDS: ATORVASTATIN CA 10 MG TABLET (FP) PO SCH (21:26)
[2019-06-01] MEDS: D5-1/2NS+20 MEQ KCL - 20 MEQ/1,000 ML INFUS.BAG IV SCH ×2 (05:59→16:30)
[2019-06-01] MEDS ORDERED: PROPOFOL 20 ML ONE (10:07)
[2019-06-01] MEDS ORDERED: ROCURONIUM BROMIDE 50 MG/5 ML SYRINGE ONE (10:10)
[2019-06-01] MEDS ORDERED: ONDANSETRON 4 MG/2 ML VIAL IVPUSH PRN ×2 (10:20→15:50)
[2019-06-01] MEDS ORDERED: PROMETHAZINE HCL 25 MG/1 ML VIAL IVPUSH PRN (10:20)
[2019-06-01] MEDS ORDERED: oxyCODONE HCL 5 MG TABLET PO PRN (10:20)
[2019-06-01] MEDS ORDERED: ACETAMINOPHEN 1000 MG/100 ML VIAL (NON FORMULARY) IVPB PRN (10:21)
[2019-06-01] MEDS ORDERED: DEXMEDETOMIDINE HCL 200 MCG/2 ML IVPB ONE (10:26)
[2019-06-01] MEDS ORDERED: ETOMIDATE 20 MG/10 ML AMPUL IVPUSH ONE (10:29)
[2019-06-01] MEDS ORDERED: LACTATED RINGERS SOLUTION 1,000 ML IV SCH (10:30)
[2019-06-01] MEDS: PANTOPRAZOLE SODIUM 40 MG VIAL IVPUSH SCH (10:43)
[2019-06-01] MEDS: SERTRALINE HCL 50 MG TABLET (FP) PO SCH (10:43)
[2019-06-01] MEDS: ZINC OXIDE 20% TOPICAL OINTMENT 30 GM TUBE TP SCH (10:43)
[2019-06-01] MEDS: METOPROLOL TARTRATE 25 MG TABLET (FP) PO SCH (10:43)
[2019-06-01] MEDS: BUDESONIDE/FORMETEROL FUMARATE 80/4.5 mcg INHALER IH SCH ×2 (10:43→21:54)
[2019-06-01] MEDS ORDERED: ERTAPENEM SODIUM 1 GM VIAL IVPB ONE (11:05)
[2019-06-01] MEDS ORDERED: ceFAZolin SODIUM 1 GM VIAL IVPB ONE (11:05)
[2019-06-01] MEDS ORDERED: ERTAPENEM SODIUM 1 GM in SODIUM CHLORIDE 50 ML IVPB ONE ×2 (11:17→15:50)
[2019-06-01] MEDS ORDERED: ERTAPENEM SODIUM 1 GM VIAL ONE (11:21)
[2019-06-01] MEDS ORDERED: KETAMINE HCL 200 MG/20 ML VIAL ONE (11:29)
--- NOTE | 2019-06-01 11:48 | PN ---
Progress Note (short form) - Note Progress Note: Comfortable Vital Signs Temp 98.6 F 05/31/19 21:00 Pulse 80 05/31/19 21:00 Resp 17 05/31/19 13:25 BP 140/70 05/31/19 21:00 Pulse Ox 96 05/31/19 09:00 Intake & Output 05/31/19 05/31/19 06/01/19 11:59 23:59 11:59 Intake Total 900 1800 Balance 900 1800 Weight 148 lb 6 oz 149 lb Intake: IV 900 1800 D5-1/2NS+20 MEQ KCL - 20 900 1800 meq In 1,000 ml @ 75 mls/ hr IV ASDIR [facility] Rx#: [id number] Other: Voiding Method Incontinent Incontinent Diaper # Unmeasured Voids Void 1 2 2 Bowel Movement No Yes # Bowel Movements 1 Weight Measurement Method Built in Bedscale Built in Bedscale Active Medications Acetaminophen (Tylenol -) 650 mg PO Q6H PRN PRN Reason: Fever Or Pain Acetaminophen (Ofirmev Injection -) 1,000 mg IVPB Q6H PRN PRN Reason: PAIN LEVEL 1-5 Albuterol Sulfate (Ventolin 0.083% Nebulizer Soln -) 1 amp NEB Q6H PRN PRN Reason: SHORT OF BREATH/WHEEZING Atorvastatin Calcium (Lipitor -) 10 mg PO HS [facility] Last Admin: 05/31/19 21:26 Dose: 10 mg Budesonide/Formoterol Fumarate (Symbicort 80/4.5mcg -) 2 puff IH BID [facility] Last Admin: 06/01/19 10:43 Dose: Not Given Fentanyl (Sublimaze Injection -) 50 mcg IVPUSH [id number] PRN PRN Reason: PAIN-PACU ORDER X 4 DOSES ONLY Potassium Chloride/Dextrose/Sod Cl (D5-1/2ns+20 Meq Kcl -) 20 meq in 1,000 mls @ 75 mls/hr IV ASDIR [facility] Last Admin: 06/01/19 05:59 Dose: 75 mls/hr Lactated Ringer's (Lactated Ringers Solution) 1,000 mls @ 125 mls/hr IV ASDIR [facility] Ertapenem 1 gm/ Sodium (Chloride) 50 mls @ 50 mls/hr IVPB ONCE ONE; Protocol Stop: 06/01/19 12:16 Metoprolol Tartrate (Lopressor -) 25 mg PO BID [facility] Last Admin: 06/01/19 10:43 Dose: Not Given Multi-Ingredient Ointment (Zinc Oxide) 1 applic TP BID [facility] Last Admin: 06/01/19 10:43 Dose: Not Given Ondansetron HCl (Zofran Injection) 4 mg IVPUSH Q6H PRN PRN Reason: NAUSEA AND/OR VOMITING Oxycodone HCl (Roxicodone -) 5 mg PO Q4H PRN PRN Reason: PAIN LEVEL 6-10 Pantoprazole Sodium (Protonix Iv) 40 mg IVPUSH DAILY [facility] Last Admin: 06/01/19 10:43 Dose: Not Given Promethazine HCl (Phenergan Injection -) 12.5 mg IVPUSH Q6H PRN PRN Reason: NAUSEA-FOR RESCUE AFTER 15 MIN Sertraline HCl (Zoloft -) 50 mg PO DAILY [facility] Last Admin: 06/01/19 10:43 Dose: Not Given CBC, BMP 05/30/19 07:05 05/30/19 07:05 Physical Exam s1 S2 RRR Lungs decreased Abd- soft, edema trace PLAN Stable HCT stable Protonix Colonoscopy by Dr Cardoso 10/24 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
[2019-06-01 12:01] LABS: HEMATOCRIT 28.2 % (32.4-45.2); MCH 26.9 pg (25.7-33.7); MCHC 31.8 g/dl (32.0-36.0); MEAN CELL VOLUME 84.8 fl (80-96); MEAN PLT VOLUME 8.9 fl (7.5-11.1); PLATELET COUNT 157 K/MM3 (134-434); RBC 3.33 M/mm3 (3.60-5.2); RDW 22.1 % (11.6-15.6); WHITE BLOOD COUNT 9.4 K/mm3 (4.0-10.0)
[2019-06-01] MEDS ORDERED: NEOSTIGMINE METHYLSULFATE 0.5 MG/ML - 10 ML MDV ONE (13:02)
--- NOTE | 2019-06-01 13:20 | OP ---
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 Operation: Laparoscopy,. partial colectomy , iliotransverse anastamosis,. Lysis of adhesions. Findings: Tumor identified just distal to iliocolic anastamosis, stained with ink. Omental and intestinal adhesions lysed. No peritoneal implants, normal liver. Post-Operative Diagnosis: Same as Pre-op (Adhesions of omentum and intestine to abdominal wall.) Surgeon: James Goodrich Computer Assistant: Karley Corona Anesthesiologist/YARN DYER: Carlos A Merritt Anesthesia: General Specimens Removed: Terminal ilium and transverse colon with omentum. Estimated Blood Loss (mls): 50 Operative Report Dictated: Yes
[2019-06-01] MEDS ORDERED: MORPHINE SULFATE 2 MG/ML VIAL IM PRN (13:26)
--- NOTE | 2019-06-01 13:55 | SURG ---
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 Procedure: Laparoscopy,. partial colectomy , iliotransverse anastamosis,. Lysis of adhesions. I was present for the entirety of the operative procedure. For further detail, please refer to operative report. Visit type - Case Type Case Type: ED Admission - Emergency Emergency Visit: Yes ED Registration Date: 05/27/19 Care time: The patient presented to the Emergency Department on the above date and was hospitalized for further evaluation of their emergent condition. - New patient This patient is new to me today: No
[2019-06-01] MEDS ORDERED: MORPHINE SULFATE 2 MG/ML VIAL IV PRN (15:33)
[2019-06-01] MEDS ORDERED: ALBUTEROL SO4 0.083% IH SOL 2.5 MG/3 ML VIAL.NEB. NEB PRN (15:50)
[2019-06-01] MEDS ORDERED: PROMETHAZINE HCL 25 MG/1 ML VIAL IVPB PRN (15:50)
[2019-06-01 15:53] LABS: ALBUMIN 2.3 g/dl (3.4-5.0); BILIRUBIN,TOTAL 0.6 mg/dL (0.2-1); BLOOD UREA NITROGEN 15.6 mg/dL (7-18); CREATININE 1.4 mg/dL (0.55-1.3); POTASSIUM 4.6 mmol/L (3.5-5.1); TOT PROT 6.3 g/dl (6.4-8.2)
[2019-06-01] MEDS: ACETAMINOPHEN 1000 MG/100 ML VIAL (NON FORMULARY) IVPB PRN (16:00)
--- NOTE | 2019-06-01 17:35 | OP ---
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 Admitted with severe colonic bleeding and anemia. POSTOPERATIVE DIAGNOSES: 1. Tumor at the transverse colon just distal to the ileocolic anastomosis. 2. Omentum and intestinal adhesions. OPERATIVE PROCEDURE: Laparoscopy with lysis of omental adhesions, laparotomy with partial colectomy, ileotransverse anastomosis, and lysis of adhesions. SURGEON: Sindhu Goodrich MD IRONMOLDER: STEPHANIE De La Paz ANESTHESIA: General anesthesia. OPERATIVE DESCRIPTION: This 88-year-old woman with recurring admissions for rectal bleeding with severe blood loss known to have carcinoma of the transverse colon distal to the previous ileocolic anastomosis was brought in for laparoscopy, laparotomy, and resection of the tumor. Consent was obtained from the guardian. Patient was brought to the operating room. General anesthesia was administered. Garcia catheter was placed in the bladder. The abdomen painted and draped. Incision in the infraumbilical portion of the umbilicus after a time-out was called. The patient was given antibiotics. Incision was deepened through the skin, subcutaneous tissue, the linea alba, and the peritoneum. A 10- to 12-mm laparoscopic trocar was inserted into the abdominal cavity under direct vision. A 5-mm camera was inserted into the abdominal cavity, and the abdominal cavity was inspected. There were multiple omental adhesions to the anterior abdominal wall. This was carefully lysed. Another 5-mm trocar was inserted in the left lower quadrant of the abdomen. The stomach was normal. The liver was normal. Internal ring was identified in the proximal transverse colon. The adhesions were carefully lysed. This was then converted to an open procedure. The incision was opened to about 4-5 cm. The proximal transverse colon along the ileocolic anastomosis was then brought out of the abdominal cavity. The liver was palpated and was found to be normal. Once the lesion was exteriorized, ileotransverse anastomosis was performed about 8-9 cm away from the palpable area of the colon. This was anastomosed to the adjacent distal ileum proximal again to the ileotransverse anastomosis for about 8-10 cm. This was done through acolotomy and an enterotomy. A [id number] anastomosis was performed using the JULIANA 80 stapling device along the anterior mesenteric side of the bowel. Once an adequate anastomosis was performed, the transverse colon that was proximal to the anastomosis was divided by using another JULIANA stapling device. The terminal ileum also, distal to the anastomosis was divided, using the JULIANA stapling device thus isolating the tumor and the adjacent terminal ileum and transverse colon away from the bowel in continuity.The segment of the terminal ileum and transverse colon was then divided dividing the blood vessels as well as the peritoneum using clamps and ligating them. The specimen consisting of the terminal ileum including the ileotransverse anastomosis with the tumor and the transverse colon beyond it along with the mesentery and adjacent omentum was excised and sent to Pathology wherein the tumor was identified. Part of the omentum was also removed that was attached to the transverse colon. The anastomosis was found to be adequate. The blood supply was adequate. After resection and anastomosing the normal bowel to the distal transverse colon, the mesentery of the 2 segments of the intestine was approximated with continuous 3-0 silk sutures. The exteriorized bowel was then returned to the abdominal cavity. The rest of the small bowel and distal transverse colon were normal. The abdominal cavity was thoroughly irrigated with normal saline. All fluid return was clear. The abdomen was closed with continuous No. 1 PDS sutures in a running, continuous fashion. The subcutaneous tissue was approximated with buried, interrupted 3-0 Vicryl sutures and skin approximated with gatito. Estimated blood loss was 50 mL. Sponge count, instrument count were correct. Patient was extubated and sent to the recovery room in satisfactory and stable condition. Helio ALBERTO/[id number] cc: Vidhya Corea MD MTDD
[2019-06-02] MEDS: D5-1/2NS+20 MEQ KCL - 20 MEQ/1,000 ML INFUS.BAG IV SCH ×2 (02:33→09:59)
[2019-06-02 08:07] LABS: HEMATOCRIT 28.2 % (32.4-45.2); HEMOGLOBIN 8.6 GM/dL (10.7-15.3); LYMPH % 6.5 % (8-40); MCH 26.5 pg (25.7-33.7); MCHC 30.6 g/dl (32.0-36.0); MEAN CELL VOLUME 86.3 fl (80-96); MEAN PLT VOLUME 9.1 fl (7.5-11.1); MONO % 4.8 % (3.8-10.2); NEUT % 88.7 % (42.8-82.8); PLATELET COUNT 149 K/MM3 (134-434); RBC 3.27 M/mm3 (3.60-5.2); RDW 21.8 % (11.6-15.6); WHITE BLOOD COUNT 20.7 K/mm3 (4.0-10.0)
[2019-06-02 08:35] LABS: BLOOD UREA NITROGEN 19.8 mg/dL (7-18); CALCIUM 8.2 mg/dL (8.5-10.1); CREATININE 1.6 mg/dL (0.55-1.3); POTASSIUM 4.6 mmol/L (3.5-5.1)
[2019-06-02] MEDS: PANTOPRAZOLE SODIUM 40 MG VIAL IVPUSH SCH (10:00)
[2019-06-02] MEDS: BUDESONIDE/FORMETEROL FUMARATE 80/4.5 mcg INHALER IH SCH ×2 (10:08→22:13)
--- NOTE | 2019-06-02 10:59 | PN ---
Progress Note (short form) - Note Progress Note: Events noted s/p surgery POD #1 awake pain relieved by morphine Vital Signs - 24 hr 06/01/19 06/02/19 06/02/19 21:00 06:00 07:42 Temperature 97.5 F L 97.6 F Pulse Rate 76 70 Respiratory 16 20 18 Rate Blood Pressure 104/63 108/66 O2 Sat by Pulse 96 Oximetry (%) 06/02/19 06/02/19 06/02/19 10:00 10:02 14:50 Temperature 97.5 F L 98.6 F Pulse Rate 100 H 98 H Respiratory 16 16 20 Rate Blood Pressure 118/70 116/62 O2 Sat by Pulse 98 Oximetry (%) 06/02/19 20:17 Temperature 98.6 F Pulse Rate 96 H Respiratory 20 Rate Blood Pressure 115/62 O2 Sat by Pulse Oximetry (%) Current Medications Generic Name Dose Route Start Last Admin Trade Name Freq PRN Reason Stop Dose Admin Acetaminophen 1,000 mg 06/01/19 15:50 06/01/19 16:00 Ofirmev Injection - IVPB 1,000 mg Q6H PRN Administration PAIN LEVEL 1-5 Albuterol Sulfate 1 amp 06/01/19 15:50 Ventolin 0.083% Nebulizer Soln - NEB Q6H PRN SHORT OF BREATH/WHEEZING Budesonide/Formoterol Fumarate 2 puff 06/01/19 22:00 06/02/19 10:08 Symbicort 80/4.5mcg - IH 2 puff BID [facility] Administration Potassium Chloride/Dextrose/Sod Cl 20 meq in 1,000 mls @ 75 mls/hr 06/01/19 15 :50 06/02/19 09:59 D5-1/2ns+20 Meq Kcl - IV 75 mls/hr ASDIR [facility] Administration Morphine Sulfate 2 mg 06/01/19 15:33 06/02/19 10:12 Morphine Sulfate IV 2 mg Q4H PRN Administration PAIN LEVEL 6-10 Pantoprazole Sodium 40 mg 06/02/19 10:00 06/02/19 10:00 Protonix Iv IVPUSH 40 mg DAILY [facility] Administration Laboratory Results - last 24 hr 06/02/19 06/02/19 06/02/19 07:18 07:18 12:35 WBC 20.7 H 20.0 H RBC 3.27 L 3.23 L Hgb 8.6 L 8.5 L Hct 28.2 L 28.1 L MCV 86.3 87.1 MCH 26.5 26.3 MCHC 30.6 L 30.2 L RDW 21.8 H 22.2 H Plt Count 149 156 MPV 9.1 9.4 Absolute Neuts (auto) 18.3 H Neutrophils % 88.7 H D Neutrophils % (Manual) 84.9 H Band Neutrophils % 11.6 Lymphocytes % 6.5 L D Lymphocytes % (Manual) 2.5 L Monocytes % 4.8 Monocytes % (Manual) 1 L Eosinophils % 0.0 D Eosinophils % (Manual) 0.0 Basophils % 0.0 Basophils % (Manual) 0.0 Myelocytes % (Man) 0 Promyelocytes % (Man) 0 Blast Cells % (Manual) 0 Nucleated RBC % 0 Metamyelocytes 1 Hypochromia 1+ Platelet Estimate Decreased Platelet Comment Present Polychromasia 2+ Poikilocytosis 1+ Anisocytosis 1+ Microcytosis 1+ Macrocytosis 0 Spherocytes 1+ Tear Drop Cells 1+ Ovalocytes 1+ [place] Cells 1+ Acanthocytes (Spur) 1+ Schistocytes 1+ Sodium 146 H Potassium 4.6 Chloride 116 H Carbon Dioxide 23 Anion Gap 8 BUN 19.8 H Creatinine 1.6 H Est GFR (CKD-EPI)AfAm 33.47 Est GFR (CKD-EPI)NonAf 28.88 Random Glucose 126 H Calcium 8.2 L s1 S2 RRR Lungs decreased Abd- soft, tender all areas edema trace PLAN Stable HCT stable Protonix Colonoscopy by Dr Cardoso 10/24 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
--- NOTE | 2019-06-02 11:18 | PN ---
Progress Note (short form) - Note Progress Note: PULMONARY s/p laparoscopy/colon resection. Denies shortness of breath. c/o abdominal pain. Vital Signs Period Temp Pulse Resp BP Sys/Pisano Pulse Ox Last 24 Hr 97.3 F-97.8 F 70-100 16-21 18-136/63-88 93-98 Gen: NAD at rest Heart: RRR Lung: decreased breath sounds at the bases Abd: softly distended, mild TTP Ext: no edema CBC, BMP 06/02/19 07:18 06/02/19 07:18 Active Medications Acetaminophen (Ofirmev Injection -) 1,000 mg IVPB Q6H PRN PRN Reason: PAIN LEVEL 1-5 Last Admin: 06/01/19 16:00 Dose: 1,000 mg Albuterol Sulfate (Ventolin 0.083% Nebulizer Soln -) 1 amp NEB Q6H PRN PRN Reason: SHORT OF BREATH/WHEEZING Budesonide/Formoterol Fumarate (Symbicort 80/4.5mcg -) 2 puff IH BID [facility] Last Admin: 06/02/19 10:08 Dose: 2 puff Potassium Chloride/Dextrose/Sod Cl (D5-1/2ns+20 Meq Kcl -) 20 meq in 1,000 mls @ 75 mls/hr IV ASDIR [facility] Last Admin: 06/02/19 09:59 Dose: 75 mls/hr Morphine Sulfate (Morphine Sulfate) 2 mg IV Q4H PRN PRN Reason: PAIN LEVEL 6-10 Last Admin: 06/02/19 10:12 Dose: 2 mg Pantoprazole Sodium (Protonix Iv) 40 mg IVPUSH DAILY [facility] Last Admin: 06/02/19 10:00 Dose: 40 mg A/P GI Bleed Acute Blood Loss Anemia Colon Cancer s/p Laparoscopy/Partial Colectomy/Iliotransverse Anastamosis/JOSÉ LUIS Atrial Fibrillation COPD - monitor H/H - transfuse as needed - pain control - incentive spirometry - inhaled bronchodilators - DVT prophylaxis
[2019-06-02 13:04] LABS: HEMATOCRIT 28.1 % (32.4-45.2); HEMOGLOBIN 8.5 GM/dL (10.7-15.3); MCH 26.3 pg (25.7-33.7); MCHC 30.2 g/dl (32.0-36.0); MEAN CELL VOLUME 87.1 fl (80-96); MEAN PLT VOLUME 9.4 fl (7.5-11.1); PLATELET COUNT 156 K/MM3 (134-434); RBC 3.23 M/mm3 (3.60-5.2); RDW 22.2 % (11.6-15.6)
[2019-06-02 14:01] LABS: ANISOCYTOSIS 1+; MACROCYTOSIS 0; OVALOCYTE 1+; PLATELET ESTIMATE DECREASED; TEAR DROP CELLS 1+
[2019-06-03 08:16] LABS: BASO % 0.1 % (0-2.0); EOS % 1.8 % (0-4.5); HEMATOCRIT 26.6 % (32.4-45.2); HEMOGLOBIN 8.1 GM/dL (10.7-15.3); LYMPH % 11.4 % (8-40); MCH 26.2 pg (25.7-33.7); MCHC 30.6 g/dl (32.0-36.0); MEAN CELL VOLUME 85.8 fl (80-96); MEAN PLT VOLUME 9.2 fl (7.5-11.1); MONO % 5.4 % (3.8-10.2); NEUT % 81.3 % (42.8-82.8); PLATELET COUNT 168 K/MM3 (134-434); RDW 23.1 % (11.6-15.6); WHITE BLOOD COUNT 13.2 K/mm3 (4.0-10.0)
[2019-06-03] MEDS: D5-1/2NS+20 MEQ KCL - 20 MEQ/1,000 ML INFUS.BAG IV SCH (08:41)
[2019-06-03 08:44] LABS: BILIRUBIN,TOTAL 0.6 mg/dL (0.2-1); BLOOD UREA NITROGEN 19.8 mg/dL (7-18); CALCIUM 8.1 mg/dL (8.5-10.1); CREATININE 1.4 mg/dL (0.55-1.3); POTASSIUM 4.7 mmol/L (3.5-5.1); TOT PROT 5.9 g/dl (6.4-8.2)
[2019-06-03] MEDS: BUDESONIDE/FORMETEROL FUMARATE 80/4.5 mcg INHALER IH SCH ×2 (10:08→21:42)
[2019-06-03] MEDS: PANTOPRAZOLE SODIUM 40 MG VIAL IVPUSH SCH (10:08)
--- NOTE | 2019-06-03 10:36 | PN ---
Progress Note (short form) - Note Progress Note: Events noted s/p surgery POD #2 awake pain relieved by morphine Vital Signs - 24 hr 06/02/19 06/02/19 06/03/19 20:17 21:00 03:39 Temperature 98.6 F 97.7 F Pulse Rate 96 H 58 L Respiratory 20 20 18 Rate Blood Pressure 115/62 151/69 O2 Sat by Pulse 98 Oximetry (%) 06/03/19 06/03/19 06/03/19 09:00 10:07 12:35 Temperature 97.6 F 98.7 F Pulse Rate 106 H 104 H Respiratory 18 19 20 Rate Blood Pressure 130/81 145/89 O2 Sat by Pulse 97 Oximetry (%) 06/03/19 12:50 Temperature 98.1 F Pulse Rate 82 Respiratory 20 Rate Blood Pressure 130/79 O2 Sat by Pulse Oximetry (%) Current Medications Generic Name Dose Route Start Last Admin Trade Name Freq PRN Reason Stop Dose Admin Acetaminophen 1,000 mg 06/01/19 15:50 06/01/19 16:00 Ofirmev Injection - IVPB 1,000 mg Q6H PRN Administration PAIN LEVEL 1-5 Albuterol Sulfate 1 amp 06/01/19 15:50 Ventolin 0.083% Nebulizer Soln - NEB Q6H PRN SHORT OF BREATH/WHEEZING Budesonide/Formoterol Fumarate 2 puff 06/01/19 22:00 06/03/19 10:08 Symbicort 80/4.5mcg - IH 2 puff BID [facility] Administration Potassium Chloride/Dextrose/Sod Cl 20 meq in 1,000 mls @ 75 mls/hr 06/01/19 15 :50 06/03/19 08:41 D5-1/2ns+20 Meq Kcl - IV Not Given ASDIR [facility] Morphine Sulfate 2 mg 06/01/19 15:33 06/02/19 10:12 Morphine Sulfate IV 2 mg Q4H PRN Administration PAIN LEVEL 6-10 Pantoprazole Sodium 40 mg 06/02/19 10:00 06/03/19 10:08 Protonix Iv IVPUSH 40 mg DAILY [facility] Administration Laboratory Results - last 24 hr 06/01/19 06/03/19 06/03/19 11:00 07:25 07:25 WBC 13.2 H RBC 3.10 L Hgb 8.1 L Hct 26.6 L MCV 85.8 MCH 26.2 MCHC 30.6 L RDW 23.1 H Plt Count 168 MPV 9.2 Absolute Neuts (auto) 10.7 H Neutrophils % 81.3 Lymphocytes % 11.4 D Monocytes % 5.4 Eosinophils % 1.8 D Basophils % 0.1 D Nucleated RBC % 1 H Sodium 146 H Potassium 4.7 Chloride 117 H Carbon Dioxide 23 Anion Gap 6 L BUN 19.8 H Creatinine 1.4 H Est GFR (CKD-EPI)AfAm 39.33 Est GFR (CKD-EPI)NonAf 33.94 Random Glucose 88 Calcium 8.1 L Total Bilirubin 0.6 AST 13 L ALT 7 L Alkaline Phosphatase 54 Total Protein 5.9 L Albumin 2.0 L Blood Type O POSITIVE Antibody Screen Negative Crossmatch See Detail s1 S2 RRR Lungs decreased Abd- soft, tender all areas edema trace PLAN Stable HCT stable Protonix Colonoscopy by Dr Cardoso 10/24 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
--- NOTE | 2019-06-03 11:42 | PN ---
Progress Note, Physician - Current Medication List Current Medications: Active Medications Acetaminophen (Ofirmev Injection -) 1,000 mg IVPB Q6H PRN PRN Reason: PAIN LEVEL 1-5 Last Admin: 06/01/19 16:00 Dose: 1,000 mg Albuterol Sulfate (Ventolin 0.083% Nebulizer Soln -) 1 amp NEB Q6H PRN PRN Reason: SHORT OF BREATH/WHEEZING Budesonide/Formoterol Fumarate (Symbicort 80/4.5mcg -) 2 puff IH BID [facility] Last Admin: 06/03/19 10:08 Dose: 2 puff Potassium Chloride/Dextrose/Sod Cl (D5-1/2ns+20 Meq Kcl -) 20 meq in 1,000 mls @ 75 mls/hr IV [facility] Last Admin: 06/03/19 08:41 Dose: Not Given Morphine Sulfate (Morphine Sulfate) 2 mg IV Q4H PRN PRN Reason: PAIN LEVEL 6-10 Last Admin: 06/02/19 10:12 Dose: 2 mg Pantoprazole Sodium (Protonix Iv) 40 mg IVPUSH DAILY [facility] Last Admin: 06/03/19 10:08 Dose: 40 mg - Objective Vital Signs: Vital Signs Temperature 97.6 F 06/03/19 10:07 Pulse Rate 106 H 06/03/19 10:07 Respiratory Rate 19 06/03/19 10:07 Blood Pressure 130/81 06/03/19 10:07 O2 Sat by Pulse Oximetry (%) 97 06/03/19 09:00 Labs: CBC, BMP 06/03/19 07:25 06/03/19 07:25 Problem List - Problems (1) Hematochezia Code(s): K92.1 - MELENA (2) 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 Patient is afebrile. Wound is clean , dressing removed. Abdomen is soft ., not tender. bc is improving , [id number]. hematocrit 28.2 Heart rate 104. May benefit from one unit of pRBC. No evidence of bleeding. Will consider some liquids by mouth tomorrow. DVT prophylaxis.
--- NOTE | 2019-06-03 11:45 | PN ---
Progress Note (short form) - Note Progress Note: PULMONARY Denies shortness of breath. c/o abdominal pain. Vital Signs Period Temp Pulse Resp BP Sys/Pisano Pulse Ox Last 24 Hr 97.6 F-98.6 F 58-106 18-20 115-151/62-81 97-98 Gen: NAD at rest Heart: RRR Lung: decreased breath sounds at the bases Abd: softly distended, mild TTP Ext: no edema CBC, BMP 06/03/19 07:25 06/03/19 07:25 Active Medications Acetaminophen (Ofirmev Injection -) 1,000 mg IVPB Q6H PRN PRN Reason: PAIN LEVEL 1-5 Last Admin: 06/01/19 16:00 Dose: 1,000 mg Albuterol Sulfate (Ventolin 0.083% Nebulizer Soln -) 1 amp NEB Q6H PRN PRN Reason: SHORT OF BREATH/WHEEZING Budesonide/Formoterol Fumarate (Symbicort 80/4.5mcg -) 2 puff IH BID [facility] Last Admin: 06/03/19 10:08 Dose: 2 puff Potassium Chloride/Dextrose/Sod Cl (D5-1/2ns+20 Meq Kcl -) 20 meq in 1,000 mls @ 75 mls/hr IV ASDIR [facility] Last Admin: 06/03/19 08:41 Dose: Not Given Morphine Sulfate (Morphine Sulfate) 2 mg IV Q4H PRN PRN Reason: PAIN LEVEL 6-10 Last Admin: 06/02/19 10:12 Dose: 2 mg Pantoprazole Sodium (Protonix Iv) 40 mg IVPUSH DAILY [facility] Last Admin: 06/03/19 10:08 Dose: 40 mg A/P GI Bleed Acute Blood Loss Anemia Colon Cancer s/p Laparoscopy/Partial Colectomy/Iliotransverse Anastamosis/JOSÉ LUIS Atrial Fibrillation COPD - monitor H/H - pain control - incentive spirometry - inhaled bronchodilators - DVT prophylaxis
--- NOTE | 2019-06-03 16:50 | PN ---
Progress Note (short form) - Note Progress Note: ID CONSULT DICTATED LEUKOCYTOSIS ?LEUKEMOID RXN SECONDARY TO GI BLEED/SURGERY/ NEOPLASM POD#2 LAPAROTOMY/BOWEL RESECTION OBSERVE OFF ANTIBIOTICS REPEAT CBC
[2019-06-04 07:38] LABS: BASO % 0.2 % (0-2.0); EOS % 2.5 % (0-4.5); HEMATOCRIT 29.6 % (32.4-45.2); HEMOGLOBIN 9.2 GM/dL (10.7-15.3); LYMPH % 11.6 % (8-40); MCH 27.2 pg (25.7-33.7); MCHC 31.2 g/dl (32.0-36.0); MEAN PLT VOLUME 9.1 fl (7.5-11.1); MONO % 4.9 % (3.8-10.2); NEUT % 80.8 % (42.8-82.8); PLATELET COUNT 160 K/MM3 (134-434); RDW 21.1 % (11.6-15.6); WHITE BLOOD COUNT 10.3 K/mm3 (4.0-10.0)
[2019-06-04 07:57] LABS: BILIRUBIN,TOTAL 0.8 mg/dL (0.2-1); BLOOD UREA NITROGEN 16.7 mg/dL (7-18); CALCIUM 8.2 mg/dL (8.5-10.1); CREATININE 1.1 mg/dL (0.55-1.3); POTASSIUM 4.8 mmol/L (3.5-5.1); TOT PROT 5.9 g/dl (6.4-8.2)
[2019-06-04] MEDS: BUDESONIDE/FORMETEROL FUMARATE 80/4.5 mcg INHALER IH SCH ×2 (10:39→21:21)
[2019-06-04] MEDS: PANTOPRAZOLE SODIUM 40 MG VIAL IVPUSH SCH (10:39)
--- NOTE | 2019-06-04 10:39 | PN ---
Progress Note (short form) - Note Progress Note: Resting in NAD. No SOB or CP. Some post-op abdominal discomfort. Intake & Output 06/01/19 06/02/19 06/03/19 06/04/19 23:59 23:59 23:59 23:59 Intake Total 1650 2100 1840 600 Output Total 650 900 200 Balance 1000 2100 940 400 Weight 149 lb 149 lb 7 oz 160 lb 152 lb 2 oz Last Vital Signs Temp Pulse Resp BP Pulse Ox 97.9 F 74 20 137/81 97 06/04/19 04:00 06/04/19 04:00 06/04/19 04:00 06/04/19 04:00 06/03/19 21:00 Active Medications Acetaminophen (Ofirmev Injection -) 1,000 mg IVPB Q6H PRN PRN Reason: PAIN LEVEL 1-5 Last Admin: 06/01/19 16:00 Dose: 1,000 mg Albuterol Sulfate (Ventolin 0.083% Nebulizer Soln -) 1 amp NEB Q6H PRN PRN Reason: SHORT OF BREATH/WHEEZING Budesonide/Formoterol Fumarate (Symbicort 80/4.5mcg -) 2 puff IH BID [facility] Last Admin: 06/03/19 21:42 Dose: 2 puff Potassium Chloride/Dextrose/Sod Cl (D5-1/2ns+20 Meq Kcl -) 20 meq in 1,000 mls @ 75 mls/hr IV ASDIR [facility] Last Admin: 06/04/19 00:00 Dose: 75 mls/hr Morphine Sulfate (Morphine Sulfate) 2 mg IV Q4H PRN PRN Reason: PAIN LEVEL 6-10 Last Admin: 06/02/19 10:12 Dose: 2 mg Pantoprazole Sodium (Protonix Iv) 40 mg IVPUSH DAILY [facility] Last Admin: 06/03/19 10:08 Dose: 40 mg Gen: NAD at rest Heart: RRR Lung: decreased breath sounds at the bases Abd: softly distended, mild TTP Ext: no edema Laboratory Results - last 24 hr 06/01/19 06/04/19 06/04/19 11:00 07:00 07:00 WBC 10.3 H RBC 3.40 L Hgb 9.2 L Hct 29.6 L MCV 87.0 MCH 27.2 MCHC 31.2 L RDW 21.1 H Plt Count 160 MPV 9.1 Absolute Neuts (auto) 8.3 H Neutrophils % 80.8 Lymphocytes % 11.6 Monocytes % 4.9 Eosinophils % 2.5 Basophils % 0.2 Nucleated RBC % 1 H Sodium 145 Potassium 4.8 Chloride 116 H Carbon Dioxide 24 Anion Gap 4 L BUN 16.7 Creatinine 1.1 Est GFR (CKD-EPI)AfAm 52.65 Est GFR (CKD-EPI)NonAf 45.42 Random Glucose 93 Calcium 8.2 L Total Bilirubin 0.8 AST 13 L ALT 6 L Alkaline Phosphatase 55 Total Protein 5.9 L Albumin 2.0 L Blood Type O POSITIVE Antibody Screen Negative Crossmatch See Detail A/P GI Bleed Acute Blood Loss Anemia Colon Cancer s/p Laparoscopy/Partial Colectomy/Iliotransverse Anastamosis/JOSÉ LUIS Atrial Fibrillation COPD - monitor H/H - pain control - BD TX PRN - incentive spirometry - inhaled bronchodilators - DVT prophylaxis - PO per surgery Dr Goodrich
--- NOTE | 2019-06-04 16:28 | PN ---
Progress Note, Physician Chief Complaint: Patient responds to commands. Wound is clean. Abdomen is soft , not distended , not tender.She has had a bowel movement . hematocrit has improved. Resume oral feeding with clear liquids today and full liquids tomorrow. - Current Medication List Current Medications: Active Medications Acetaminophen (Ofirmev Injection -) 1,000 mg IVPB Q6H PRN PRN Reason: PAIN LEVEL 1-5 Last Admin: 06/01/19 16:00 Dose: 1,000 mg Albuterol Sulfate (Ventolin 0.083% Nebulizer Soln -) 1 amp NEB Q6H PRN PRN Reason: SHORT OF BREATH/WHEEZING Budesonide/Formoterol Fumarate (Symbicort 80/4.5mcg -) 2 puff IH BID [facility] Last Admin: 06/04/19 10:39 Dose: 2 puff Potassium Chloride/Dextrose/Sod Cl (D5-1/2ns+20 Meq Kcl -) 20 meq in 1,000 mls @ 75 mls/hr IV ASDIR [facility] Last Admin: 06/04/19 00:00 Dose: 75 mls/hr Pantoprazole Sodium (Protonix Iv) 40 mg IVPUSH DAILY [facility] Last Admin: 06/04/19 10:39 Dose: 40 mg - Objective Vital Signs: Vital Signs Temperature 98.4 F 06/04/19 14:00 Pulse Rate 84 06/04/19 14:00 Respiratory Rate 20 06/04/19 14:00 Blood Pressure 144/88 06/04/19 14:00 O2 Sat by Pulse Oximetry (%) 97 06/04/19 09:00 Labs: CBC, BMP 06/04/19 07:00 06/04/19 07:00 Problem List - Problems (1) Hematochezia Code(s): K92.1 - MELENA (2) Adenocarcinoma of transverse colon Code(s): C18.4 - MALIGNANT NEOPLASM OF TRANSVERSE COLON (3) Dementia Code(s): F03.90 - UNSPECIFIED DEMENTIA WITHOUT BEHAVIORAL DISTURBANCE (4) Chronic atrial fibrillation Code(s): I48.2 - CHRONIC ATRIAL FIBRILLATION * DO NOT USE * (5) COPD (chronic obstructive pulmonary disease) Code(s): J44.9 - CHRONIC OBSTRUCTIVE PULMONARY DISEASE, UNSPECIFIED Qualifiers: COPD type: unspecified COPD Qualified Code(s): J44.9 - Chronic obstructive pulmonary disease, unspecified
--- NOTE | 2019-06-04 17:38 | PN ---
Progress Note (short form) - Note Progress Note: pod # 3 comfortable denies pain Surgical F/u noted Vital Signs Temp 98.4 F 06/04/19 14:00 Pulse 84 06/04/19 14:00 Resp 20 06/04/19 14:00 BP 144/88 06/04/19 14:00 Pulse Ox 97 06/04/19 09:00 Intake & Output 06/03/19 06/04/19 06/04/19 23:59 11:59 23:59 Intake Total 4138 550 9009 Output Total 500 200 200 Balance 133 077 4232 Weight 160 lb 152 lb 2 oz Intake: IV 287 586 9240 D5-1/2NS+20 MEQ KCL - 20 256 826 2711 meq In 1,000 ml @ 75 mls/ hr IV ASDIR [facility] Rx#: [id number] IVPB 100 100 Oral 0 0 0 Packed Cells 350 350 Output: Urine 500 200 200 Void 500 200 200 Other: Voiding Method Indwelling Catheter Indwelling Catheter Bowel Movement No No No Weight Measurement Method Built in Bedscale Built in Bedscale Active Medications Acetaminophen (Ofirmev Injection -) 1,000 mg IVPB Q6H PRN PRN Reason: PAIN LEVEL 1-5 Last Admin: 06/01/19 16:00 Dose: 1,000 mg Albuterol Sulfate (Ventolin 0.083% Nebulizer Soln -) 1 amp NEB Q6H PRN PRN Reason: SHORT OF BREATH/WHEEZING Budesonide/Formoterol Fumarate (Symbicort 80/4.5mcg -) 2 puff IH BID [facility] Last Admin: 06/04/19 10:39 Dose: 2 puff Potassium Chloride/Dextrose/Sod Cl (D5-1/2ns+20 Meq Kcl -) 20 meq in 1,000 mls @ 75 mls/hr IV ASDIR [facility] Last Admin: 06/04/19 00:00 Dose: 75 mls/hr Pantoprazole Sodium (Protonix Iv) 40 mg IVPUSH DAILY [facility] Last Admin: 06/04/19 10:39 Dose: 40 mg CBC, BMP 06/04/19 07:00 06/04/19 07:00 Physical Exam s1 S2 RRR Lungs decreased Abd- soft, edema trace PLAN pod # 3 stable continue same f/u labs Advance diet as tolerated will follow Problem List - Problems (1) GI (gastrointestinal bleed) Code(s): K92.2 - GASTROINTESTINAL HEMORRHAGE, UNSPECIFIED Qualifiers: GI bleed type/associated pathology: unspecified gastrointestinal hemorrhage type Qualified Code(s): K92.2 - Gastrointestinal hemorrhage, unspecified (2) Hematochezia Code(s): K92.1 - MELENA (3) Adenocarcinoma of transverse colon Code(s): C18.4 - MALIGNANT NEOPLASM OF TRANSVERSE COLON (4) Anemia requiring transfusions Code(s): D64.9 - ANEMIA, UNSPECIFIED (5) Chronic atrial fibrillation Code(s): I48.2 - CHRONIC ATRIAL FIBRILLATION * DO NOT USE * (6) Dementia Code(s): F03.90 - UNSPECIFIED DEMENTIA WITHOUT BEHAVIORAL DISTURBANCE
[2019-06-04] MEDS: D5-1/2NS+20 MEQ KCL - 20 MEQ/1,000 ML INFUS.BAG IV SCH ×2 (21:22)
--- NOTE | 2019-06-04 21:54 | CONS ---
DATE OF CONSULTATION: 06/03/2019 The patient is an 88-year-old female who was evaluated for leukocytosis. She was admitted to the hospital on May 27, 2019, after she was noted to have rectal bleeding at the long-term. She was admitted to the hospital where she was found to be anemic with a hemoglobin of 6.3. She required a transfusion of packed red blood cells. Patient had a known history of recurrent adenocarcinoma of the colon. CAT scan of the abdomen and pelvis revealed retained feces. She was seen in consultation by Surgery. She was taken to the operating room on June 01, 2019, for palliative laparoscopic partial colectomy and lysis of adhesions. Her course has been complicated by white blood cell count elevation 20.7. At the present time she is awake and responsive. She suffers from dementia and cannot offer any additional details. She has had no fever. PAST MEDICAL HISTORY: Positive for dementia, adenocarcinoma of the colon, atrial fibrillation, COPD, congestive heart failure, hypertension, hyperlipidemia. ALLERGIES: PENICILLIN. Nature of the PENICILLIN allergy not documented. Patient unable to give any additional history. SOCIAL HISTORY: She is a nonsmoker, nondrinker, long-term resident. MEDICATIONS: Include albuterol, Symbicort, lisinopril, Zoloft, Zocor, Coreg, Protonix. LABORATORY DATA: White count on admission 20.7, presently 13.2. Hematocrit 26.6, platelets 168, creatinine 1.4. PHYSICAL EXAMINATION: General: On exam, she is awake, but she is confused. She is unable to offer any additional history. Vital Signs: Temperature 98.1, blood pressure 130/79, pulse 82, regular. Respirations 20 per minute. Heent: Sclerae are anicteric. Cardiovascular: Heart sounds S1, S2. Lungs: Clear. Abdomen: Soft. Patient resists exam, is confused. Surgical wound with gatito in place. No evidence of infection. Extremities: Negative for edema. IMPRESSION: 1. Leukocytosis, probable leukemoid reaction secondary to gastrointestinal bleeding, recent surgery, and underlying neoplasm. 2. Postoperative day number 2 laparotomy and bowel resection. PLAN: Would observe off antibiotic therapy at this time. Repeat CBC. Should patient have persistently elevated white blood cell count or occurrence of fever, will start empiric antibiotic therapy after cultures. For now, will observe off antibiotic therapy. Thank you for the kind referral. CAMILA WILSON M.D. KYLE/[id number]
[2019-06-05] MEDS: D5-1/2NS+20 MEQ KCL - 20 MEQ/1,000 ML INFUS.BAG IV SCH ×2 (06:16→20:00)
[2019-06-05 07:42] LABS: BASO % 0.2 % (0-2.0); EOS % 3.1 % (0-4.5); HEMATOCRIT 29.1 % (32.4-45.2); LYMPH % 12.6 % (8-40); MCH 26.6 pg (25.7-33.7); MCHC 30.8 g/dl (32.0-36.0); MEAN CELL VOLUME 86.6 fl (80-96); MONO % 5.7 % (3.8-10.2); NEUT % 78.4 % (42.8-82.8); PLATELET COUNT 174 K/MM3 (134-434); RBC 3.36 M/mm3 (3.60-5.2); RDW 21.4 % (11.6-15.6); WHITE BLOOD COUNT 9.3 K/mm3 (4.0-10.0)
[2019-06-05 08:12] LABS: BILIRUBIN,TOTAL 0.9 mg/dL (0.2-1); BLOOD UREA NITROGEN 14.2 mg/dL (7-18); CALCIUM 8.2 mg/dL (8.5-10.1); POTASSIUM 4.7 mmol/L (3.5-5.1)
--- NOTE | 2019-06-05 10:04 | PN ---
Progress Note, Physician - Current Medication List Current Medications: Active Medications Acetaminophen (Ofirmev Injection -) 1,000 mg IVPB Q6H PRN PRN Reason: PAIN LEVEL 1-5 Last Admin: 06/01/19 16:00 Dose: 1,000 mg Albuterol Sulfate (Ventolin 0.083% Nebulizer Soln -) 1 amp NEB Q6H PRN PRN Reason: SHORT OF BREATH/WHEEZING Budesonide/Formoterol Fumarate (Symbicort 80/4.5mcg -) 2 puff IH BID [facility] Last Admin: 06/04/19 21:21 Dose: 2 puff Potassium Chloride/Dextrose/Sod Cl (D5-1/2ns+20 Meq Kcl -) 20 meq in 1,000 mls @ 75 mls/hr IV ASDIR [facility] Last Admin: 06/05/19 06:16 Dose: 75 mls/hr Pantoprazole Sodium (Protonix Iv) 40 mg IVPUSH DAILY [facility] Last Admin: 06/04/19 10:39 Dose: 40 mg - Objective Vital Signs: Vital Signs Temperature 98.4 F 06/05/19 05:56 Pulse Rate 111 H 06/05/19 05:56 Respiratory Rate 20 06/05/19 05:56 Blood Pressure 150/92 06/05/19 05:56 O2 Sat by Pulse Oximetry (%) 97 06/04/19 20:53 Labs: CBC, BMP 06/05/19 07:05 06/05/19 07:05 Problem List - Problems (1) Hematochezia Code(s): K92.1 - MELENA (2) Adenocarcinoma of transverse colon Code(s): C18.4 - MALIGNANT NEOPLASM OF TRANSVERSE COLON (3) Dementia Code(s): F03.90 - UNSPECIFIED DEMENTIA WITHOUT BEHAVIORAL DISTURBANCE (4) Chronic atrial fibrillation Code(s): I48.2 - CHRONIC ATRIAL FIBRILLATION * DO NOT USE * (5) COPD (chronic obstructive pulmonary disease) Code(s): J44.9 - CHRONIC OBSTRUCTIVE PULMONARY DISEASE, UNSPECIFIED Qualifiers: COPD type: unspecified COPD Qualified Code(s): J44.9 - Chronic obstructive pulmonary disease, unspecified Assessment/Plan Surgery : Patient is afebrile. Wound is clean. Resume feeding . Pathology is pending. Labs: Low albumin , otherwise normal.
[2019-06-05] MEDS: PANTOPRAZOLE SODIUM 40 MG VIAL IVPUSH SCH (10:24)
[2019-06-05] MEDS: BUDESONIDE/FORMETEROL FUMARATE 80/4.5 mcg INHALER IH SCH ×2 (10:24→21:12)
--- NOTE | 2019-06-05 10:49 | PN ---
Progress Note (short form) - Note Progress Note: Resting in NAD. No SOB or CP. No acute events overnight. Intake & Output 06/02/19 06/03/19 06/04/19 06/05/19 23:59 23:59 23:59 23:59 Intake Total 2100 1840 2950 745 Output Total 900 800 200 Balance 2100 940 2150 545 Weight 149 lb 7 oz 160 lb 152 lb 2 oz 156 lb 7 oz Last Vital Signs Temp Pulse Resp BP Pulse Ox 98.4 F 111 H 20 150/92 97 06/05/19 05:56 06/05/19 05:56 06/05/19 05:56 06/05/19 05:56 06/04/19 20:53 Active Medications Acetaminophen (Ofirmev Injection -) 1,000 mg IVPB Q6H PRN PRN Reason: PAIN LEVEL 1-5 Last Admin: 06/01/19 16:00 Dose: 1,000 mg Albuterol Sulfate (Ventolin 0.083% Nebulizer Soln -) 1 amp NEB Q6H PRN PRN Reason: SHORT OF BREATH/WHEEZING Budesonide/Formoterol Fumarate (Symbicort 80/4.5mcg -) 2 puff IH BID [facility] Last Admin: 06/05/19 10:24 Dose: 2 puff Potassium Chloride/Dextrose/Sod Cl (D5-1/2ns+20 Meq Kcl -) 20 meq in 1,000 mls @ 75 mls/hr IV ASDIR [facility] Last Admin: 06/05/19 06:16 Dose: 75 mls/hr Pantoprazole Sodium (Protonix Iv) 40 mg IVPUSH DAILY [facility] Last Admin: 06/05/19 10:24 Dose: 40 mg Gen: NAD at rest Heart: RRR Lung: decreased breath sounds at the bases Abd: soft, (+) BS, mild TTP Ext: no edema Laboratory Results - last 24 hr 06/05/19 06/05/19 07:05 07:05 WBC 9.3 RBC 3.36 L Hgb 9.0 L Hct 29.1 L MCV 86.6 MCH 26.6 MCHC 30.8 L RDW 21.4 H Plt Count 174 MPV 9.0 Absolute Neuts (auto) 7.3 Neutrophils % 78.4 Lymphocytes % 12.6 Monocytes % 5.7 Eosinophils % 3.1 Basophils % 0.2 Nucleated RBC % 1 H Sodium 143 Potassium 4.7 Chloride 115 H Carbon Dioxide 22 Anion Gap 6 L BUN 14.2 Creatinine 1.0 Est GFR (CKD-EPI)AfAm 59.08 Est GFR (CKD-EPI)NonAf 50.97 Random Glucose 100 Calcium 8.2 L Total Bilirubin 0.9 AST 31 ALT 19 Alkaline Phosphatase 66 Total Protein 6.0 L Albumin 2.0 L A/P GI Bleed Acute Blood Loss Anemia Colon Cancer s/p Laparoscopy/Partial Colectomy/Iliotransverse Anastamosis/JOSÉ LUIS Atrial Fibrillation COPD - monitor H/H - pain control - BD TX PRN - incentive spirometry - inhaled bronchodilators - DVT prophylaxis - PO per surgery Dr Goodrich
--- NOTE | 2019-06-05 11:10 | PN ---
Progress Note (short form) - Note Progress Note: Events noted s/p surgery POD #4 no complaints tolerating liquids Vital Signs - 24 hr 06/04/19 06/04/19 06/04/19 14:00 18:00 20:53 Temperature 98.4 F 97.7 F Pulse Rate 84 77 Respiratory 20 20 20 Rate Blood Pressure 144/88 150/90 O2 Sat by Pulse 97 Oximetry (%) 06/05/19 05:56 Temperature 98.4 F Pulse Rate 111 H Respiratory 20 Rate Blood Pressure 150/92 O2 Sat by Pulse Oximetry (%) Current Medications Generic Name Dose Route Start Last Admin Trade Name Freq PRN Reason Stop Dose Admin Acetaminophen 1,000 mg 06/01/19 15:50 06/01/19 16:00 Ofirmev Injection - IVPB 1,000 mg Q6H PRN Administration PAIN LEVEL 1-5 Albuterol Sulfate 1 amp 06/01/19 15:50 Ventolin 0.083% Nebulizer Soln - NEB Q6H PRN SHORT OF BREATH/WHEEZING Budesonide/Formoterol Fumarate 2 puff 06/01/19 22:00 06/05/19 10:24 Symbicort 80/4.5mcg - IH 2 puff BID [facility] Administration Potassium Chloride/Dextrose/Sod Cl 20 meq in 1,000 mls @ 75 mls/hr 06/01/19 15 :50 06/05/19 06:16 D5-1/2ns+20 Meq Kcl - IV 75 mls/hr ASDIR [facility] Administration Pantoprazole Sodium 40 mg 06/02/19 10:00 06/05/19 10:24 Protonix Iv IVPUSH 40 mg DAILY [facility] Administration Laboratory Results - last 24 hr 06/05/19 06/05/19 07:05 07:05 WBC 9.3 RBC 3.36 L Hgb 9.0 L Hct 29.1 L MCV 86.6 MCH 26.6 MCHC 30.8 L RDW 21.4 H Plt Count 174 MPV 9.0 Absolute Neuts (auto) 7.3 Neutrophils % 78.4 Lymphocytes % 12.6 Monocytes % 5.7 Eosinophils % 3.1 Basophils % 0.2 Nucleated RBC % 1 H Sodium 143 Potassium 4.7 Chloride 115 H Carbon Dioxide 22 Anion Gap 6 L BUN 14.2 Creatinine 1.0 Est GFR (CKD-EPI)AfAm 59.08 Est GFR (CKD-EPI)NonAf 50.97 Random Glucose 100 Calcium 8.2 L Total Bilirubin 0.9 AST 31 ALT 19 Alkaline Phosphatase 66 Total Protein 6.0 L Albumin 2.0 L s1 S2 RRR Lungs decreased Abd- soft, tender all areas edema trace PLAN Stable HCT stable Protonix Colonoscopy by Dr Cardoso 10/24 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 pain control advance to soft diet dc planning Problem List - Problems (1) GI (gastrointestinal bleed) Code(s): K92.2 - GASTROINTESTINAL HEMORRHAGE, UNSPECIFIED Qualifiers: GI bleed type/associated pathology: unspecified gastrointestinal hemorrhage type Qualified Code(s): K92.2 - Gastrointestinal hemorrhage, unspecified (2) Adenocarcinoma of transverse colon Code(s): C18.4 - MALIGNANT NEOPLASM OF TRANSVERSE COLON (3) Anemia requiring transfusions Code(s): D64.9 - ANEMIA, UNSPECIFIED (4) Chronic atrial fibrillation Code(s): I48.2 - CHRONIC ATRIAL FIBRILLATION * DO NOT USE * (5) Dementia Code(s): F03.90 - UNSPECIFIED DEMENTIA WITHOUT BEHAVIORAL DISTURBANCE
[2019-06-05 19:40] VITALS: BMI 28.1
[2019-06-05] MEDS: ACETAMINOPHEN 1000 MG/100 ML VIAL (NON FORMULARY) IVPB PRN (21:16)
[2019-06-05] MEDS ORDERED: CARVEDILOL 12.5 MG TABLET (FP) PO ONE (23:27)
--- NOTE | 2019-06-05 23:43 | HOSP ---
Subjective - Review of Symptoms Events since last encounter: Hospitalist Encounter Notified by the primary RN, that the patient's HR is 150, with the rest of her vital signs nl. Was asked to assess Arrived to bedside, patient is alert to name- at baseline. When asked, patient denies sOB, CP, palpitations. Patient appears in no acute distress. PE performed see EMR Assessment: This is a 88 y/o woman with a PMHx of Afib, COPD and known Adenocarcinoma distal to Ileocolonic anastomosis admitted with recurrent GI bleed. s/p Laparoscopy, partial colectomy, iliotransverse anastamosis,. Lysis of adhesions. POD #4 Plan: Stat EKG Coreg 12.5mg po x1 now Physical Examination Vital Signs: Vital Signs Temperature 99.7 F H 06/05/19 22:59 Pulse Rate 152 H 06/05/19 23:12 Respiratory Rate 20 06/05/19 23:12 Blood Pressure 117/52 L 06/05/19 23:12 O2 Sat by Pulse Oximetry (%) 100 06/05/19 21:00 Constitutional: Yes: No Distress, Calm Eyes: Yes: Conjunctiva Clear, PERRL HENT: Yes: WNL, Atraumatic, Normocephalic Neck: Yes: WNL, Supple, Trachea Midline Cardiovascular: Yes: Tachycardia, S1, S2 Respiratory: Yes: WNL, Regular, CTA Bilaterally Gastrointestinal: Yes: Normal Bowel Sounds, Soft, Other (surgical wound with gatito intact) Breast(s): Yes: WNL Musculoskeletal: Yes: WNL Extremities: Yes: WNL Edema: No Peripheral Pulses WNL: Yes Neurological: Yes: Alert, Confusion (to baseline) ...Motor Strength: WNL Psychiatric: Yes: WNL, Alert, Oriented Labs: CBC, BMP 06/05/19 07:05 06/05/19 07:05 Current Medications Generic Name Dose Route Start Last Admin Trade Name Freq PRN Reason Stop Dose Admin Acetaminophen 1,000 mg 06/01/19 15:50 06/05/19 21:16 Ofirmev Injection - IVPB 1,000 mg Q6H PRN Administration PAIN LEVEL 1-5 Albuterol Sulfate 1 amp 06/01/19 15:50 Ventolin 0.083% Nebulizer Soln - NEB Q6H PRN SHORT OF BREATH/WHEEZING Budesonide/Formoterol Fumarate 2 puff 06/01/19 22:00 06/05/19 21:12 Symbicort 80/4.5mcg - IH 2 puff BID [facility] Administration Potassium Chloride/Dextrose/Sod Cl 20 meq in 1,000 mls @ 75 mls/hr 06/01/19 15 :50 06/05/19 20:00 D5-1/2ns+20 Meq Kcl - IV 75 mls/hr ASDIR [facility] Administration Pantoprazole Sodium 40 mg 06/02/19 10:00 06/05/19 10:24 Protonix Iv IVPUSH 40 mg DAILY [facility] Administration Hospitalist Encounter Outcome: EKG- reviewed ST 152, with nonspecific T wave abnormality, change in rate compared to prior study. HR post medication-96, BP 110/68 Recommendations/Interventions: Consider resuming Coreg Critical Care Total Critical Care Time (in minutes): 32 Critical Care Statement: The care of this patient involved high complexity decision making to prevent further life threatening deterioration of the patient 's condition and/or to evaluate & treat vital organ system(s) failure or risk of failure.
[2019-06-06] MEDS ORDERED: CARVEDILOL 12.5 MG TABLET (FP) PO SCH (11:00)
--- NOTE | 2019-06-06 11:11 | DS ---
Physical Examination Vital Signs: Vital Signs Temperature 98.4 F 06/06/19 06:00 Pulse Rate 74 06/06/19 06:00 Respiratory Rate 18 06/06/19 06:00 Blood Pressure 104/71 06/06/19 06:00 O2 Sat by Pulse Oximetry (%) 100 06/05/19 21:00 Constitutional: Yes: No Distress, Calm Cardiovascular: Yes: Pulse Irregular Respiratory: Yes: CTA Bilaterally Gastrointestinal: Yes: Normal Bowel Sounds, Soft. No: Tenderness Edema: No Labs: CBC, BMP 06/05/19 07:05 06/05/19 07:05 Discharge Summary Problems reviewed: Yes Reason For Visit: GASTROINTESTINAL HEMORRHAGE,DEMENTIA,CHRONIC ATRIA Current Active Problems COPD (chronic obstructive pulmonary disease) (Acute) Elevated troponin (Acute) GI (gastrointestinal bleed) (Acute) Hematochezia (Acute) Hospital Course: Admitted for GI bleeding H/o adenocarcinoma colon no chemo per oncology she received PRBC at hospital decision made for palliative resection to help stop bleeding Consent was obtained from legal guardian - Note: Operative Date: 06/01/19 Pre-Operative Diagnosis: Recurrent carcinoma of transverse colon with colonic bleeding, and anemia. Operation: Laparoscopy,. partial colectomy , iliotransverse anastamosis,. Lysis of adhesions. Findings: Tumor identified just distal to iliocolic anastamosis, stained with ink. Omental and intestinal adhesions lysed. No peritoneal implants, normal liver. Pt is tolerating diet passing flatus stable for dc to [facility] HCT stable Condition: Improved - Instructions Diet, Activity, Other Instructions: Dr Goodrich Post-Op Discharge Instructions Physical activity Resume your normal everyday activity as tolerated no heavy lifting or exercise until seen by your surgeon. You may walk unlimited amounts of and climb stairs. You may resume driving the car when you feel safe and comfortable behind the wheel. Wound care If you have a bandage, leave it on, and keep dry for 48-72 hours. After that time discard the outer bandage. If there are tapes on the skin under the outer bandage, leave them in place. They will peel off in the next 7 to 10 days. Do Not Peel them off. You may shower the day after surgery. If there are tapes present on the skin, you may shower over them. Diet There are no dietary restrictions. Eat healthy, high-fiber foods. Drink 6 to 8 glasses of liquid each day. This will assist in keeping your bowels are regular. Pain management You may take Tylenol or acetaminophen or Ibuprofen (for example, Motrin, Advil etc.) Any pain prescription medication ordered should be taken as prescribed for moderate to severe pain. Call Dr. Goodrich for any of the following: Severe pain not relieved by medication Fever of 101 or higher Excessive bleeding or drainage on dressing Inability to urinate Call the office for an appointment in seven days (after discharged from Hospital ) Referrals: Yovanny Khan MD [Primary Care Provider] - Disposition: [facility] FACILITY - Home Medications Comprehensive Discharge Medication List: Ambulatory Orders Albuterol 0.083% Nebulizer Ani [Ventolin 0.083% Nebulizer Soln -] 1 amp NEB PRN 03/16/18 Budesonide/Formeterol Fumarate [SYMBICORT 80/4.5mcg -] 2 puff IH BID 03/16/18 Lisinopril 10 mg PO DAILY 03/16/18 Sertraline HCl [Zoloft -] 50 mg PO DAILY 03/16/18 Simvastatin [Zocor -] 10 mg PO HS 03/16/18 Zinc Gluconate [Zinc] 50 mg PO DAILY 03/16/18 Carvedilol [Coreg -] 12.5 mg PO BID 03/18/18 Pantoprazole Sodium [Protonix] 40 mg PO BID #30 tablet. 10/13/18 Zinc Oxide 1 applic TP BID tube 10/13/18 Ascorbic Acid [Vitamin C -] 500 mg PO BID tablet 04/13/19 Magnesium Hydroxide [Milk of Magnesia] 30 ml PO ASDIR PRN 05/27/19 Polyethylene Glycol 3350 [Miralax (For Daily Use) -] 17 gm PO DAILY 05/27/19
[2019-06-06] MEDS: PANTOPRAZOLE SODIUM 40 MG VIAL IVPUSH SCH (11:28)
[2019-06-06] MEDS: BUDESONIDE/FORMETEROL FUMARATE 80/4.5 mcg INHALER IH SCH (11:29)
--- NOTE | 2019-06-06 12:06 | EKG ---
Test Reason : Blood Pressure : / mmHG Vent. Rate : 064 BPM Atrial Rate : 064 BPM P-R Int : 226 ms QRS Dur : 082 ms QT Int : 478 ms P-R-T Axes : 032 014 004 degrees QTc Int : 493 ms SINUS RHYTHM WITH 1ST DEGREE A-V BLOCK WITH OCCASIONAL PREMATURE VENTRICULAR COMPLEXES T WAVE ABNORMALITY, CONSIDER ANTERIOR ISCHEMIA PROLONGED QT ABNORMAL ECG WHEN COMPARED WITH ECG OF 27-MAY-2019 08:23, PREMATURE VENTRICULAR COMPLEXES ARE NOW PRESENT PREMATURE ATRIAL COMPLEXES ARE NO LONGER PRESENT VENT. RATE HAS DECREASED BY 35 BPM T WAVE INVERSION NOW EVIDENT IN ANTERIOR LEADS Confirmed by GINGER PROCTOR MD ([id number]) on 06/06/2019 12:06:25 PM Referred By: ANNEMARIE HAYWARD DR Confirmed By:GINGER PROCTOR MD
[2019-06-06 14:31] VITALS: BP 134/75; PULSE 70; TEMP 98.2
--- NOTE | 2019-06-06 17:52 | PATH ---
Surgical Pathology Report Patient Name: EUFEMIA BERRIOS [facility]. Rec. #: [id number] /Age/Gender: 1930 (Age: 88) / F Account: [id number] Location: [address] [place] [address] Taken: 06/01/2019 Received: 06/01/2019 Reported: 06/06/2019 Physicians: Helio Cid M.D. Specimen(s) Received TUMOR TRANSVERSE COLON Clinical History Gastrointestinal hemorrhage, dementia Intraoperative Consult Diagnosis Intraoperative gross examination: Mass noted. Margins grossly negative. Emerita Tijerina M.D., 06/01/2019 Final Diagnosis TRANSVERSE COLON, ILEUM, TUMOR, RESECTION: RECURRENT INVASIVE ADENOCARCINOMA, MODERATELY DIFFERENTIATED, ULCERATED. TUMOR MEASURES 3.5 x 3.1 CM (GROSS MEASUREMENT). TUMOR LOCATED AT ILEO-TRANSVERSE ANASTOMOSIS. TUMOR INVADES INTO PERICOLORECTAL TISSUE. FOCAL LYMPHOVASCULAR IDENTIFIED (SMALL VESSEL, INTRAMURAL). PERINEURAL INVASION IDENTIFIED. SURGICAL MARGINS ARE NEGATIVE. THREE OF THIRTEEN LYMPH NODES WITH METASTATIC CARCINOMA (3/13). LARGEST TUMOR DEPOSIT MEASURES 3 MM IN GREATEST MICROSCOPIC DIMENSION. FOCAL EXTRANODAL EXTENSION IDENTIFIED. BLOOD VESSELS WITH MILD CALCIFIC ATHEROSCLEROSIS. PATHOLOGIC STAGE: rpT3 rpN1b. SEE INVASIVE SUMMARY BELOW. Comments Colorectal Carcinoma :Surgical Pathology Cancer Case Summary (Based on AJCC TNM 8 th edition) Procedure _X_ Other (specify): Partial colectomy Tumor Site _X_ Ileo-Transverse anastomosis Tumor Size Greatest dimension (centimeters): 3.5 x 3.1 cm (gross measurement) Macroscopic Tumor Perforation _X_ Not identified Histologic Type _X_ Adenocarcinoma Histologic Grade _X G2: Moderately differentiated Tumor Extension _X__ Tumor invades through the muscularis propria into pericolorectal tissue Margins _X_ All margins are uninvolved by invasive carcinoma, high-grade dysplasia, intramucosal adenocarcinoma, and adenoma Margins examined: Proximal, distal, radial/mesenteric Treatment Effect _X_ No known presurgical therapy Lymphovascular Invasion _X_ Present _X_ Focal small vessel lymphovascular invasion _X_ Intramural Perineural Invasion _X_ Present Tumor Deposits _X__ Not identified Regional Lymph Nodes Lymph Node Examination Number of Lymph Nodes Involved: 3 Number of Lymph Nodes Examined: 13 Pathologic Stage Classification (pTNM, AJCC 8th Edition) TNM Descriptors _X__ r (recurrent) Primary Tumor (pT) _X_ pT3: Tumor invades through the muscularis propria into pericolorectal tissues Regional Lymph Nodes (pN) _X__ pN1b: Two or three regional lymph nodes are positive Electronically Signed Nori Castro M.D. Gross Description Received fresh labeled "tumor transverse colon," is a 9 cm in length portion of ileum with an attached 13 cm in length portion of large bowel, consistent with an ileotransverse anastomosis, per the surgeon. The specimen displays 2 stapled mucosal margins and abundant attached pericolonic adipose tissue. The serosa is almaraz-shea and smooth with a focal staple line at the anastomosis site. Sectioning reveals a 3.5 x 3.1 cm almaraz, polypoid, ulcerated mass at the anastomosis site. The mass is 2.5 cm from the mesenteric margin of resection. The mass extends through the muscularis and to the serosa. The remaining mucosa is almaraz with normal folds. Sectioning of the pericolonic adipose tissue reveals multiple lymph nodes. An intraoperative gross examination is performed. Director Of Admissions sections are submitted in 14 cassettes as follows: 1-ileal mucosal margin of resection; 2-transverse mucosal margin of resection; 3-mesenteric margin of resection; 4-7-mass; 8-uninvolved ileum; 9-uninvolved transverse colon; [id number] whole possible lymph nodes each. 06/04/2019 [facility]06/04/2019
== END 2019-06-06 17:43 | DRG 330 ==
LOC: JER 08:19 → JERBED 09:50 → JICU 12:49 → J6S 05-29 15:13
PROVIDERS: ADMIT Internal Medicine; ATTEND Internal Medicine
PROC: 30233N1 Transfusion of Nonautologous Red Blood Cells into Peripheral Vein, Percutaneous Approach (ICD-10-PCS; 2019-05-27)
PROC: 0DNU4ZZ Release Omentum, Percutaneous Endoscopic Approach (ICD-10-PCS; 2019-06-01)
PROC: 0DT Gastrointestinal System, Resection (ICD-10-PCS; principal; 2019-06-01 10:00)
DX: C18.4 Malignant neoplasm of transverse colon (principal); K92.2 Gastrointestinal hemorrhage, unspecified; I48.20 Chronic atrial fibrillation, unspecified; N17.9 Acute kidney failure, unspecified; J44.1 Chronic obstructive pulmonary disease with (acute) exacerbation; D62 Acute posthemorrhagic anemia; C77.2 Secondary and unspecified malignant neoplasm of intra-abdominal lymph nodes; F03.90 Unspecified dementia, unspecified severity, without behavioral disturbance, psychotic disturbance, mood disturbance, and anxiety; D72.829 Elevated white blood cell count, unspecified; K66.0 Peritoneal adhesions (postprocedural) (postinfection)
CPT/HCPCS: 36415; 36430; 36511; 71045-TC-FY; 74018-TC-FY; 74176-TC; 80048; 80053; 81003; 82272; 84484; 85025; 85027; 85730; 86850; 86900; 86901; 86922; 87086; 87186; 88309-TC; 88329; 93005; 93010; 94760; 99284-25; J0131; P9038; P9058